=== PATIENT | female | born 1950 | race Caucasian/White ===

== ENCOUNTER 2024-08-18 10:16 | Emergency (ER) | payer MEDICARE, BC, SELFPAY ==
--- NOTE | ~2024-08-18 | CT_ITS ---
CT lumbar spine wo con Ordering provider: Jj Blanc MD History: 74 years Female with . Lower back pain, nontraumatic . Comparison: None. Technique: CT lumbar spine without contrast. Automated exposure control and iterative reconstruction technique were employed. The dose-length product was 121.00 mGy-cm. FINDINGS: VERTEBRAE: Compression fracture of L2 and L4 is noted which is most likely acute. Loss of volume of a bout 50% is seen. Mild levoscoliosis. DISC SPACES: Well maintained. T12-L1: No stenosis. L1-L2: No stenosis. L2-L3: No stenosis. L3-L4: No stenosis. L4-L5: No stenosis. Mild diffuse disc bulge. L5-S1: No stenosis. Diffuse disc bulge. Prominent in the left foramen is seen in the right side. PARASPINOUS SOFT TISSUES: Mild atheromatous disease of the abdominal aorta. IMPRESSION: Compression fractures seen in L2 and L4 which are most likely acute. MRI evaluation advised. Reviewed, dictated and finalized at location [facility]. [facility] IMPRESSION: Compression fractures seen in L2 and L4 which are most likely acute. MRI evalua tion advised.
[2024-08-18 10:50] VITALS: BP 94/78; PULSE 97; RESP 18; TEMP 36.8; O2SAT 97
--- NOTE | 2024-08-18 12:07 | ED.BACK ---
HPI - Back Pain/Injury General Chief Complaint: Back Pain/Injury Stated Complaint: lower back pain Time Seen by Provider: 08/18/24 12:06 Source: patient Mode of arrival: ambulatory Limitations: no limitations History of Present Illness HPI Narrative: 74 years old white female came to the ED with lower back pain mainly at the right side started 10 days ago, denies any trauma. Patient is telling me that she had similar symptoms started April 2024 lasted for 3 weeks after lifting heavy boxes. Patient is telling me that she been taking care of her grand son over the last few weeks which could be triggered her right lower back pain. She denies any fever, chills, nausea, vomiting, or radiation of pain Patient denies bowel dysfunction, bladder dysfunction, altered sensation, focal weakness, or saddle numbness, Related Data Allergies Allergy/AdvReac Type Severity Reaction Status Date / Time No Known Allergies Allergy Verified 08/18/24 12:43 Review of Systems Review of Systems: All systems reviewed & are unremarkable except as noted in HPI and below Exam Narrative: General appearance: Well-developed, well-nourished Skin: Normal color Head: Normocephalic, nontraumatic Eyes: Clear conjunctiva ENT: Oropharynx normal, ears normal, nose normal Neck: Supple, nontender Chest and respiratory: Airway patent, no respiratory distress, no accessory muscle use Heart: Regular rate/rhythm Abdomen: Soft, nontender, no organomegaly, quiet bowel sounds Vascular: Normal peripheral pulses, normal capillary refill. Musculoskeletal: Mild diffuse tenderness right lower back, no bruises, no swelling, no rash, limited range of motion at the lumbar area Neurologic: Alert and oriented ?3, LEATH[employer]AYER is normal as tested, no gross motor deficit Course Vital Signs Vital signs: Vital Signs Temperature 36.8 C 08/18/24 10:50 Pulse Rate 97 08/18/24 10:50 Respiratory Rate 18 08/18/24 10:50 Blood Pressure 94/78 L 08/18/24 10:50 Pulse Oximetry 97 08/18/24 10:50 Temperature 36.8 C 08/18/24 10:50 Pulse Rate 97 08/18/24 10:50 Respiratory Rate 18 08/18/24 10:50 Blood Pressure 94/78 L 08/18/24 10:50 Pulse Oximetry 97 08/18/24 10:50 MDM - Back Pain/Injury MDM Narrative Medical decision making narrative: Lower back pain Vital signs are stable Physical examination showing slight tenderness at the right lower back, otherwise insignificant Differential diagnosis include muscular strain/sprain less likely bulging disc. CT lumbar spine showed L1, L4 compression fracture Dr. Chavez requested lower back brace, outpatient follow-up and there is no improvement kyphoplasty will be the other option. Is planning to leave a message at the patient phone for follow-up BACK BRACE WAS MANAGE IN THE ED PRIOR TO DISCHARGE Differential Diagnosis Differential diagnosis: Likely other (As above) Imaging Data Radiologist's impression: CT Critical Care Time Critical Care Time Critical Care Time: No Discharge Plan Discharge Clinical Impression: Compression fracture, Lower back pain Patient Disposition: Home, Self-Care Condition: Stable Instructions: Vertebral Compression Fracture (ED) Additional Instructions: Return if symptoms are worsening , call your Dr Landrum, take Tylenol as as needed for aches and pain, continue home medications. Patient Language: Israeli Prescriptions: New diclofenac sodium 75 mg tablet,delayed release (DR/EC) 75 mg PO BID PRN (Reason: pain) Qty: 14 0RF cyclobenzaprine 7.5 mg tablet 7.5 mg PO TID Qty: 20 0RF diclofenac sodium 75 mg tablet,delayed release (DR/EC) 75 mg PO BID PRN (Reason: pain) Qty: 20 0RF cyclobenzaprine 7.5 mg tablet 7.5 mg PO TID Qty: 20 0RF Follow-up/Referrals: Kuldeep Greene MD [Physician] - 09/01/24 PHYSICIAN NOT ON STAFF,NONSTAFF [Non-Staff] -
[2024-08-18] MEDS: HYDROcodone/acetaminophen (*CRX) 5-325 MG TABLET 1 TAB PO (12:50)
[2024-08-18] MEDS: IBUPROFEN 600 MG TABLET PO (12:51)
--- OUTSIDE RECORDS SUMMARY | 2024-08-18 13:34 | XMS_ITS | Continuity of Care Document ---
Author Organization Formerly [facility] [place] Address [address] [place] [address] [address] [place] [address] Phone Care Team Providers Care Transplant Nurse Practitioner Name Role Phone Steff Sow Unavailable Unavailable Procedures Procedure Date Eye Exam Established Pt Advance Directives Directive Yes / No Effective Date File Name No Information Encounters Encounter Description Practice Location Reason(s) For Visit Diagnoses Date Provider Providers Copied on Encounter [facility], [address] [place] [address] [address], [place], [place], [id number], [place] tel:[phone] [facility] No Information [address] [facility] , [address], [place], [address], [place]. tel:[phone] Family History Family Member Type Diagnosis Age At Onset No Information Payers Payer name Insurance type Covered republican ID Authoriza tion(s) No Information Social History Type Description Quantity Date Captured Comments Sex Female Smoking Status No Information Chief Complaint And Reason For Visit No Information Reason For Referral Reason For Referral No Information History Of Present Illness Encounter Date Complaint History Of Prese nt Illness No Information Functional Status Date Functional Assessmen t No Information Instructions Date Instruction Additional Infor mation No Information Assessments Type Assessment Date No Information Patient Care Teams Name Effective Dates (start - stop) Status Members No Information
--- OUTSIDE RECORDS SUMMARY | 2024-08-18 13:34 | XMS_ITS | Data Portability ---
Author Organization RISSA CHARLYIvan Magallon Address [address] [place] [address] Assessment No assessment recorded. Plan of Treatment Reminders Order Date Submit Date Provider Last Modified By Organization Details Last Modified Time Details Appointments None recorded. Lab lipid panel, serum 2023 024 [facility]NA[facility], [address], [place], [address], 4 08:27:00 basic metabolic 1998 panel, serum or plasma 2023 024 PAULIE [facility], [address], [place], [address], 4 08:27:01 CBC 2023 024 [facility]NA[facility]AN [facility], [address], [place], [address], 4 08:27:02 TSH, ultra-sensi tive, serum 2023 024 PAULIE [facility], [address], [place], [address], 4 13:12:23 CBC w/ auto diff 2023 024 [facility]NA[facility]AN [facility], [address], [address], [place], [address], 4 06:26:42 CMP, serum or plasma 2023 024 PAULIE Pena, [address], [place], [address], 4 06:26:40 urinalysis, dipstick 2023 024 PAULIE Pena, [address], [address], [place], [address], 4 06:26:41 lipid panel, serum 2023 024 PAULIE Pena, [address], [address], [place], [address], 4 06:26:40 noninvasive colorectal cancer DNA + occult blood screening, QL, stool 2023 024 [facility] (Cologuard Orders Only), [address], [address], [place], [address], 4 15:41:53 iron + total iron-bindin g capacity (TIBC), serum 2022 023 PAULIE Pena, [address], [address], [place], [address], 3 08:21:46 ferritin, serum or plasma 2022 023 PAULIE Pena, [address], [address], [place], [address], 3 08:21:47 hepatic function panel, serum 2022 023 PAULIE Pena, [address], [address], [place], [address], 3 08:21:45 CBC w/ auto diff 2022 023 PAULIE Pena, [address]22 [address], [address], [place], [address], 3 08:21:47 lipid panel, serum 2022 023 [facility]NA[facility]AN [facility], [address], [place], [address], 3 19:08:41 Referral gastroenter ologist referral - Chronic GERD 2023 024 amber Bal MD, [address] [facility] [address], [place], [address], 4 17:27:26 Procedures None recorded. Surgeries None recorded. Imaging XR, chest, 2 view 2023 024 [facility] [address] [place], [address], 4 15:42:09 XR, sternum - Deformity of the lower part of the sternum, post trauma 2022 023 [facility] ([facility]), [address] [place], [address], 3 16:43:04 Medication Orders atorvastati n 10 mg tablet 2023 024 [facility], [address] [place] [address], [address], 4 12:34:12 ferrous sulfate 325 mg (65 mg iron) tablet 2023 024 [facility], [facility] [place], [address], 4 12:34:10 levothyroxi ne 112 mcg tablet 2023 024 [facility], [address] [place] [address], [address], 4 12:34:10 omeprazole 40 mg capsule,del ayed release 2023 024 [facility], [address] [place] [address], [address], 4 13:04:21 ferrous sulfate 325 mg (65 mg iron) tablet 2023 024 PAULIE [facility], [address] [place] [address], [address], 4 12:59:47 ferrous sulfate 325 mg (65 mg iron) tablet 2022 023 oajao [facility], [address] [place] [address], [address], 3 12:47:14 omeprazole 20 mg capsule,del ayed release 2022 023 oajao [facility], [address] [place] [address], [address], 4 13:03:16 atorvastati n 10 mg tablet 2022 023 PAULIE [facility], [address] [place] [address], [address], 3 12:50:48 atorvastati n 10 mg tablet 2022 023 PAULIE [facility], [address] [place] [address], [address], 3 13:46:33 omeprazole 40 mg capsule,del ayed release 2022 023 oajao [facility], [address] [place] [address], [address], 3 12:13:57 ferrous sulfate 325 mg (65 mg iron) tablet 2022 023 PAULIE [facility], [address] [place] [address], [address], 03:32:51 Zithromax Z-Oliver 250 mg tablet 2022 023 [id number], [address], [place], [address], 12:36:28 Patient TargetsNo targets recorded. Patient Instructions Encounter Date Encounter Id Patient Instructions Last Modified By Organization Details Last Modified Time 07/24/2022 [id number] gastroesophageal reflux disease (GERD): care instructions oajao Not available 07/24/2022 13:46:30 Quitting Tobacco : Care Instructions oajao Not available 07/24/2022 13:44:50 chronic sinusiti s: care instructions oajao Not available 07/24/2022 12:53:47 eating healthy foods: care instructions oajao Not available 07/24/2022 13:37:[address] sca n report Xray sternum Azithromycin only if there is no improvement TSH today Lipids in Oct, 2022 Follow up in 6 months and PRN DEXA scan (See above) oajao Not available 07/24/2022 13:54:28 01/22/2023 [id number] Labs Follow up i n 6 months and PRN oajao Not available 01/22/2023 12:40:40 07/20/2023 [id number] gastroesophageal reflux disease (GERD): care instructions oajao Not available 07/20/2023 12:56:09 hypothyroidism: care instructions oajao Not available 07/20/2023 13:01:43 CXR Labs GI Cologuard Omeprazole 40 mg Follow up in 3 months and PRN oajao Not available 07/20/2023 13:03:08 11/14/2023 [id number] Labs Follow up in 6 months and PRN oajao Not available 11/14/2023 15:58:54 06/06/2024 [id number] A healthy lifest yle: care instructions oajao Not available 06/06/2024 12:25:13 eating healthy foods: care instructions oajao Not available 06/06/2024 12:25:53 Labs Follow up i n 6 months and PRN oajao Not available 06/06/2024 12:37:30 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 Gastroesophageal reflux disease Chronic GERD Chronic GERD Referring Physician: Abdiel Garcia, Internal Medicine, Encounter Date: 07/20/2023 Results Created Date Observation Date Name Description Value Unit Range Abnormal Flag Note LastModifiedBy Organization Detail LastModifiedTime 07/19/1907/19/2024 COLOG UARD cologuard result Cancel led - Order d not applic able Not Available [facility] (Cologuard Orders Only) [address], [place], [address], 07/19/2024 07:52:43 07/24/19 23 07/25/2022 TSH TSH 0.285 uIU/m L 0.450- 4.500 below low normal Not Available [facility] ([facility]) [address] [place], [address], 07/25/2022 08:17:06 07/25/19 23 07/26/2022 TSH TSH 0.389 uIU/m L 0.450- 4.500 below low normal Not Available [facility] ([facility]) [address] [place], [address], 07/26/2022 08:18:34 12/12/19 23 12/11/2022 LIPID PANEL cholesterol, total 159.2 mg/dL 140.0- 200.0 Not Available [facility] Department [address] [place], [address], 12/11/2022 19:08:40 12/12/19 23 12/11/2022 LIPID PANEL triglyceride s 66 mg/dL <=150 Not Available [facility] Department [address] [place], [address], 12/11/2022 19:08:40 12/12/19 23 12/11/2022 LIPID PANEL HDL cholesterol 42.8 mg/dL 40.0-1 00.0 Not Available [facility] Department [address] [place], [address], 12/11/2022 19:08:40 12/12/19 23 12/11/2022 LIPID PANEL VLDL cholesterol fernando 13.20 mg/dL 5.00-4 0.00 Not Available [facility] Department [address] [place], [address], 12/11/2022 19:08:40 12/12/19 23 12/11/2022 LIPID PANEL LDL chol calc ([facility]) 103.4 mg/dL 0.0-99 .0 above high normal Not Available [facility] Department [address] [place], [address], 12/11/2022 19:08:40 12/19/19 23 12/19/2022 TSH RFX ON ABNOR MAL TO FREE T4 TSH 2.160 uIU/m L 0.450- 4.500 Not Available [facility] ([facility]) [address] [place], [address], 12/19/2022 06:15:13 01/23/20 23 01/23/2023 IRON AND TIBC iron bind.cap.(TI BC) 234 ug/dL 250-45 0 below low normal Not Available [facility] ([facility]) [address] [place], [address], 01/23/2023 08:21:46 01/23/20 23 01/23/2023 IRON AND TIBC UIBC 138 ug/dL 118-36 9 Not Available [facility] ([facility]) [address] [place], [address], 01/23/2023 08:21:46 01/23/20 23 01/23/2023 IRON AND TIBC iron 96 ug/dL 27-139 Not Available [facility] ([facility]) [address] [place], [address], 01/23/2023 08:21:46 01/23/20 23 01/23/2023 IRON AND TIBC iron saturation 41 % 15-55 Not Available [facility] ([facility]) [address] [facility], [place], [address], 01/23/2023 08:21:46 01/23/20 23 01/23/2023 CECE TIN ferritin 319 NG/mL 15-150 above high normal Not Available [facility] ([facility]) [address] [facility], [place], [address], 01/23/2023 08:21:47 01/23/20 23 01/23/2023 CBC WITH DIFFE RENTI AL/PL ATELE T WBC 5.9 x10e3 /uL 3.4-10 .8 Not Available [facility] ([facility]) [address] [place], [address], 01/23/2023 08:21:47 01/23/20 23 01/23/2023 CBC WITH DIFFE RENTI AL/PL ATELE T RBC 4.07 x10e6 /uL 3.77-5 .28 Not Available [facility] ([facility]) [address] [place], [address], 01/23/2023 08:21:47 01/23/20 23 01/23/2023 CBC WITH DIFFE RENTI AL/PL ATELE T hemoglobin 13.9 g/dL 11.1-1 5.9 Not Available [facility] ([facility]) [address] [place], [address], 01/23/2023 08:21:47 01/23/20 23 01/23/2023 CBC WITH DIFFE RENTI AL/PL ATELE T hematocrit 39.6 % 34.0-4 6.6 Not Available [facility] ([facility]) [address] [place], [address], 01/23/2023 08:21:47 01/23/20 23 01/23/2023 CBC WITH DIFFE RENTI AL/PL ATELE T MCV 97 fL 79-97 Not Available [facility] ([facility]) [address] [place], [address], 01/23/2023 08:21:47 01/23/20 23 01/23/2023 CBC WITH DIFFE RENTI AL/PL ATELE T MCH 34.2 pg 26.6-3 3.0 above high normal Not Available [facility] ([facility]) [address] [facility], [place], [address], 01/23/2023 08:21:47 01/23/20 23 01/23/2023 CBC WITH DIFFE RENTI AL/PL ATELE T MCHC 35.1 g/dL 31.5-3 5.7 Not Available [facility] ([facility]) [address] [facility], [place], [address], 01/23/2023 08:21:47 01/23/20 23 01/23/2023 CBC WITH DIFFE RENTI AL/PL ATELE T RDW 12.3 % 11.7-1 5.4 Not Available [facility] ([facility]) [address] [facility], [place], [address], 01/23/2023 08:21:47 01/23/20 23 01/23/2023 CBC WITH DIFFE RENTI AL/PL ATELE T platelets 380 x10e3 /uL 150-45 0 Not Available [facility] ([facility]) [address] [facility], [place], [address], 01/23/2023 08:21:47 01/23/20 23 01/23/2023 CBC WITH DIFFE RENTI AL/PL ATELE T neutrophils 42 % notest ab. Not Available [facility] ([facility]) [address] [place], [address], 01/23/2023 08:21:47 01/23/20 23 01/23/2023 CBC WITH DIFFE RENTI AL/PL ATELE T lymphs 45 % notest ab. Not Available [facility] ([facility]) [address] [place], [address], 01/23/2023 08:21:47 01/23/20 23 01/23/2023 CBC WITH DIFFE RENTI AL/PL ATELE T monocytes 11 % notest ab. Not Available [facility] ([facility]) [address] [facility], [place], [address], 01/23/2023 08:21:47 01/23/20 23 01/23/2023 CBC WITH DIFFE RENTI AL/PL ATELE T eos 1 % notest ab. Not Available [facility] ([facility]) [address] [facility], [place], [address], 01/23/2023 08:21:47 01/23/20 23 01/23/2023 CBC WITH DIFFE RENTI AL/PL ATELE T basos 1 % notest ab. Not Available [facility] ([facility]) [address] [facility], [place], [address], 01/23/2023 08:21:47 01/23/20 23 01/23/2023 CBC WITH DIFFE RENTI AL/PL ATELE T neutrophils (absolute) 2.5 x10e3 /uL 1.4-7. 0 Not Available [facility] ([facility]) [address] [facility], [place], [address], 01/23/2023 08:21:47 01/23/20 23 01/23/2023 CBC WITH DIFFE RENTI AL/PL ATELE T lymphs (absolute) 2.7 x10e3 /uL 0.7-3. 1 Not Available [facility] ([facility]) [address] [place], [address], 01/23/2023 08:21:47 01/23/20 23 01/23/2023 CBC WITH DIFFE RENTI AL/PL ATELE T monocytes(ab solute) 0.6 x10e3 /uL 0.1-0. 9 Not Available [facility] ([facility]) [address] [place], [address], 01/23/2023 08:21:47 01/23/20 23 01/23/2023 CBC WITH DIFFE RENTI AL/PL ATELE T eos (absolute) 0.1 x10e3 /uL 0.0-0. 4 Not Available [facility] ([facility]) [address] [facility], [place], [address], 01/23/2023 08:21:47 01/23/20 23 01/23/2023 CBC WITH DIFFE RENTI AL/PL ATELE T baso (absolute) 0.1 x10e3 /uL 0.0-0. 2 Not Available [facility] ([facility]) [address] [facility], [place], [address], 01/23/2023 08:21:47 01/23/20 23 01/23/2023 CBC WITH DIFFE RENTI AL/PL ATELE T immature granulocytes 0 % notest ab. Not Available [facility] ([facility]) [address] [facility], [place], [address], 01/23/2023 08:21:47 01/23/20 23 01/23/2023 CBC WITH DIFFE RENTI AL/PL ATELE T immature grans (abs) 0.0 x10e3 /uL 0.0-0. 1 Not Available [facility] ([facility]) [address] [place], [address], 01/23/2023 08:21:47 01/23/20 23 01/23/2023 HEPAT IC FUNCT ION PANEL (7) protein, total 6.6 g/dL 6.0-8. 5 Not Available [facility] ([facility]) [address] [place], [address], 01/23/2023 08:21:45 01/23/20 23 01/23/2023 HEPAT IC FUNCT ION PANEL (7) albumin 4.5 g/dL 3.9-4. 9 Not Available [facility] ([facility]) [address] [facility], [place], [address], 01/23/2023 08:21:45 01/23/20 23 01/23/2023 HEPAT IC FUNCT ION PANEL (7) bilirubin, total 0.3 mg/dL 0.0-1. 2 Not Available [facility] ([facility]) [address] [facility], [place], [address], 01/23/2023 08:21:45 01/23/20 23 01/23/2023 HEPAT IC FUNCT ION PANEL (7) bilirubin, direct 0.11 mg/dL 0.00-0 .40 Not Available [facility] ([facility]) [address] [place], [address], 01/23/2023 08:21:45 01/23/20 23 01/23/2023 HEPAT IC FUNCT ION PANEL (7) alkaline phosphatase 77 IU/L 44-121 Not Available [facility] ([facility]) [address] [facility], [place], [address], 01/23/2023 08:21:45 01/23/20 23 01/23/2023 HEPAT IC FUNCT ION PANEL (7) AST (SGOT) 23 IU/L 0-40 Not Available [facility] ([facility]) [address] [facility], [place], [address], 01/23/2023 08:21:45 01/23/20 23 01/23/2023 HEPAT IC FUNCT ION PANEL (7) ALT (SGPT) 21 IU/L 0-32 Not Available [facility] ([facility]) [address] [place], [address], 01/23/2023 08:21:45 07/20/19 24 07/21/2023 LIPID PANEL cholesterol, total 165 mg/dL 100-19 9 Not Available [facility] Department [address] [place], [address], 07/21/2023 06:26:40 07/20/19 24 07/21/2023 LIPID PANEL triglyceride s 81 mg/dL 0-149 Not Available [facility] Department [address] [place] [address], [address], 07/21/2023 06:26:40 07/20/19 24 07/21/2023 LIPID PANEL HDL cholesterol 47 mg/dL 40-999 Not Available [facility] Department [address] [place] [address], [address], 07/21/2023 06:26:40 07/20/19 24 07/21/2023 LIPID PANEL VLDL cholesterol fernando 16 mg/dL 5-40 Not Available [facility] Department [address] [place] [address], [address], 07/21/2023 06:26:40 07/20/19 24 07/21/2023 LIPID PANEL LDL chol calc (nih) 113 mg/dL 0-99 above high normal Not Available [facility] Department [address] [place] [address], [address], 07/21/2023 06:26:40 07/20/19 24 07/21/2023 COMP. METAB OLIC PANEL (14) glucose 86 mg/dL 70-99 Not Available [facility] Department [address] [place] [address], [address], 07/21/2023 06:26:40 07/20/19 24 07/21/2023 COMP. METAB OLIC PANEL (14) BUN 10 mg/dL 8-27 Not Available [facility] Department [address] [place], [address], 07/21/2023 06:26:40 07/20/19 24 07/21/2023 COMP. METAB OLIC PANEL (14) creatinine 0.69 mg/dL 0.76-1 .27 below low normal Not Available [facility] Department [address] [place] [address], [address], 07/21/2023 06:26:40 07/20/19 24 07/21/2023 COMP. METAB OLIC PANEL (14) eGFR 93 >=60 Units for eGFR value s are mL/mi n/1.7 3 The eGFR Calcu latio n has not been valid ated for patie nts under the age of 18. If test resul ts are displ ayed for a patie nt under the age of 18, disre karma that value . Not Available [facility] Department [address] [place] [address], [address], 07/21/2023 06:26:40 07/20/19 24 07/21/2023 COMP. METAB OLIC PANEL (14) BUN/creatini ne ratio 14 10-28 Not Available [facility] Department [address] [place] [address], [address], 07/21/2023 06:26:40 07/20/19 24 07/21/2023 COMP. METAB OLIC PANEL (14) sodium 142 mmol/ L 134-14 4 Not Available [facility] Department [address] [place] [address], [address], 07/21/2023 06:26:40 07/20/19 24 07/21/2023 COMP. METAB OLIC PANEL (14) potassium 5.5 mmol/ L 3.5-5. 2 above high normal Not Available [facility] Department [address] [place] [address], [address], 07/21/2023 06:26:40 07/20/19 24 07/21/2023 COMP. METAB OLIC PANEL (14) chloride 104 mmol/ L 96-106 Not Available [facility] Department [address] [place] [address], [address], 07/21/2023 06:26:40 07/20/19 24 07/21/2023 COMP. METAB OLIC PANEL (14) carbon dioxide, total 26 mmol/ L 20-29 Not Available [facility] Department [address] [place] [address], [address], 07/21/2023 06:26:40 07/20/19 24 07/21/2023 COMP. METAB OLIC PANEL (14) calcium 10.1 mg/dL 8.7-10 .3 Not Available [facility] Department [address] [place], [address], 07/21/2023 06:26:40 07/20/19 24 07/21/2023 COMP. METAB OLIC PANEL (14) protein, total 7.2 g/dL 6.0-8. 5 Not Available [facility] Department [address] [place], [address], 07/21/2023 06:26:40 07/20/19 24 07/21/2023 COMP. METAB OLIC PANEL (14) albumin 4.7 g/dL 3.8-4. 8 Not Available [facility] Department [address] [place], [address], 07/21/2023 06:26:40 07/20/19 24 07/21/2023 COMP. METAB OLIC PANEL (14) globulin, total 2.5 g/dL 1.5-4. 5 Not Available [facility] Department [address] [place], [address], 07/21/2023 06:26:40 07/20/19 24 07/21/2023 COMP. METAB OLIC PANEL (14) A/G ratio 2.0 1.2-2. 2 Not Available [facility] Department [address] [place], [address], 07/21/2023 06:26:40 07/20/19 24 07/21/2023 COMP. METAB OLIC PANEL (14) bilirubin, total 0.3 mg/dL 0.0-1. 2 Not Available [facility] Department [address] [place], [address], 07/21/2023 06:26:40 07/20/19 24 07/21/2023 COMP. METAB OLIC PANEL (14) alkaline phosphatase 81 IU/L 44-121 Not Available [facility] Department [address] [place], [address], 07/21/2023 06:26:40 07/20/19 24 07/21/2023 COMP. METAB OLIC PANEL (14) AST (SGOT) 28 IU/L 0-40 Not Available [facility] Department [address] [place], [address], 07/21/2023 06:26:40 07/20/19 24 07/21/2023 COMP. METAB OLIC PANEL (14) ALT (SGPT) 27 IU/L 0-32 Not Available [facility] Department [address] [place], [address], 07/21/2023 06:26:40 07/20/19 24 07/20/2023 URINA LYSIS , ROUTI NE specific gravity SEE BELOW: 1.005- 1.030 abnormal <=1.0 05 Not Available [facility] Department [address] [place], [address], 07/21/2023 06:26:41 07/20/19 24 07/20/2023 URINA LYSIS , ROUTI NE pH 6.5 5.0-7. 0 Not Available [facility] Department [address] [place], [address], 07/21/2023 06:26:41 07/20/19 24 07/20/2023 URINA LYSIS , ROUTI NE urine-color YELLOW yellow Not Available [facility] Department [address] [place], [address], 07/21/2023 06:26:41 07/20/19 24 07/20/2023 URINA LYSIS , ROUTI NE appearance CLEAR Not Available [facility] Department [address] [place], [address], 07/21/2023 06:26:41 07/20/19 24 07/20/2023 URINA LYSIS , ROUTI NE WBC esterase COMMEN T NEGAT FREDDIE Not Available [facility] Department [address] [place], [address], 07/21/2023 06:26:41 07/20/19 24 07/20/2023 URINA LYSIS , ROUTI NE protein COMMEN T NEGAT FREDDIE Not Available [facility] Department [address] [place], [address], 07/21/2023 06:26:41 07/20/19 24 07/20/2023 URINA LYSIS , ROUTI NE glucose COMMEN T NEGAT FREDDIE Not Available [facility] Department [address] [place], [address], 07/21/2023 06:26:41 07/20/19 24 07/20/2023 URINA LYSIS , ROUTI NE ketones COMMEN T NEGAT FREDDIE Not Available [facility] Department [address] [place], [address], 07/21/2023 06:26:41 07/20/19 24 07/20/2023 URINA LYSIS , ROUTI NE occult blood COMMEN T NEGAT FREDDIE Not Available [facility] Department [address] [facility], [place], [address], 07/21/2023 06:26:41 07/20/19 24 07/20/2023 URINA LYSIS , ROUTI NE bilirubin COMMEN T NEGAT FREDDIE Not Available [facility] Department [address] [place], [address], 07/21/2023 06:26:41 07/20/19 24 07/20/2023 URINA LYSIS , ROUTI NE urobilinogen ,semi-qn 0.2 eu/dL 0.2-1. 0 Not Available [facility] Department [address] [place], [address], 07/21/2023 06:26:41 07/20/19 24 07/20/2023 URINA LYSIS , ROUTI NE nitrite, urine COMMEN T negati ve NEGAT FREDDIE Not Available [facility] Department [address] [place], [address], 07/21/2023 06:26:41 07/20/19 24 07/20/2023 CBC WITH DIFFE RENTI AL/PL ATELE T WBC 6.2 x10e3 /uL 3.4-10 .8 Not Available [facility] Department [address] [place], [address], 07/21/2023 06:26:42 07/20/19 24 07/20/2023 CBC WITH DIFFE RENTI AL/PL ATELE T RBC 4.26 x10e6 /uL 3.77-5 .28 Not Available [facility] Department [address] [place], [address], 07/21/2023 06:26:42 07/20/19 24 07/20/2023 CBC WITH DIFFE RENTI AL/PL ATELE T hemoglobin 13.9 g/dL 11.1-1 5.9 Not Available [facility] Department [address] [place], [address], 07/21/2023 06:26:42 07/20/19 24 07/20/2023 CBC WITH DIFFE RENTI AL/PL ATELE T hematocrit 43.0 % 34.0-4 6.6 Not Available [facility] Department [address] [place], [address], 07/21/2023 06:26:42 07/20/19 24 07/20/2023 CBC WITH DIFFE RENTI AL/PL ATELE T MCV 101 fL 79-97 above high normal Not Available [facility] Department [address] [place], [address], 07/21/2023 06:26:42 07/20/19 24 07/20/2023 CBC WITH DIFFE RENTI AL/PL ATELE T MCH 32.6 pg 26.6-3 3.0 Not Available [facility] Department [address] [place], [address], 07/21/2023 06:26:42 07/20/19 24 07/20/2023 CBC WITH DIFFE RENTI AL/PL ATELE T MCHC 32.3 g/dL 31.5-3 5.7 Not Available [facility] Department [address] [place], [address], 07/21/2023 06:26:42 07/20/19 24 07/20/2023 CBC WITH DIFFE RENTI AL/PL ATELE T RDW 13.4 % 11.5-1 4.5 Not Available [facility] Department [address] [place], [address], 07/21/2023 06:26:42 07/20/19 24 07/20/2023 CBC WITH DIFFE RENTI AL/PL ATELE T platelets 450 x10e3 /uL 150-45 0 Not Available [facility] Department [address] [place], [address], 07/21/2023 06:26:42 07/20/19 24 07/20/2023 CBC WITH DIFFE RENTI AL/PL ATELE T neutrophils 40 % notest b. Not Available [facility] Department [address] [place], [address], 07/21/2023 06:26:42 07/20/19 24 07/20/2023 CBC WITH DIFFE RENTI AL/PL ATELE T lymphs 47 % notest b. Not Available [facility] Department [address] [place], [address], 07/21/2023 06:26:42 07/20/19 24 07/20/2023 CBC WITH DIFFE RENTI AL/PL ATELE T monocytes 11 % notest b. Not Available [facility] Department [address] [place], [address], 07/21/2023 06:26:42 07/20/19 24 07/20/2023 CBC WITH DIFFE RENTI AL/PL ATELE T eos 1 % notest b. Not Available [facility] Department [address] [place], [address], 07/21/2023 06:26:42 07/20/19 24 07/20/2023 CBC WITH DIFFE RENTI AL/PL ATELE T basos 1 % notest b. Not Available [facility] Department [address] [place], [address], 07/21/2023 06:26:42 07/20/19 24 07/20/2023 CBC WITH DIFFE RENTI AL/PL ATELE T neutrophils (absolute) 2.5 x10e3 /uL 1.4-7. 0 Not Available [facility] Department [address] [place], [address], 07/21/2023 06:26:42 07/20/19 24 07/20/2023 CBC WITH DIFFE RENTI AL/PL ATELE T lymphs (absolute) 2.9 x10e3 /uL 0.7-3. 1 Not Available [facility] Department [address] [place], [address], 07/21/2023 06:26:42 07/20/19 24 07/20/2023 CBC WITH DIFFE RENTI AL/PL ATELE T monocytes(ab solute) 0.7 x10e3 /uL 0.1-0. 9 Not Available [facility] Department [address] [place], [address], 07/21/2023 06:26:42 07/20/19 24 07/20/2023 CBC WITH DIFFE RENTI AL/PL ATELE T eos (absolute) 0.1 x10e3 /uL 0.0-0. 4 Not Available [facility] Department [address] [place], [address], 07/21/2023 06:26:42 07/20/19 24 07/20/2023 CBC WITH DIFFE RENTI AL/PL ATELE T baso (absolute) 0.1 x10e3 /uL 0.0-0. 2 Not Available [facility] Department [address] [place], [address], 07/21/2023 06:26:42 07/20/19 24 07/20/2023 CBC WITH DIFFE RENTI AL/PL ATELE T immature granulocytes 0.2 % notest b. Not Available [facility] Department [address] [place], [address], 07/21/2023 06:26:42 07/20/19 24 07/20/2023 CBC WITH DIFFE RENTI AL/PL ATELE T immature grans (abs) 0.0 x10e3 /uL 0.0-0. 1 Not Available [facility] Department [address] [place], [address], 07/21/2023 06:26:42 07/20/19 24 07/20/2023 CBC WITH DIFFE RENTI AL/PL ATELE T NRBC 0 % 0-0 Not Available [facility] Department [address] [place], [address], 07/21/2023 06:26:42 08/01/19 24 08/02/2023 POTAS SIUM potassium 4.3 mmol/ L 3.5-5. 2 Not Available [facility] ([facility]) [address] [facility], [place], [address], 08/02/2023 06:18:57 08/01/19 24 08/02/2023 VITAM IN B12 WITH REFLE X vitamin B12 >2000 pg/mL 232-12 45 above high normal Not Available [facility] ([facility]) [address] [facility], [place], [address], 08/08/2023 17:09:42 08/01/19 24 08/08/2023 METHY LMALO CHAVA ACID, SERUM methylmaloni c acid, serum 107 nmol/ L 0-378 Not Available [facility] ([facility]) [address] [place], [address], 08/08/2023 17:09:43 11/14/19 24 11/15/2023 TSH RFX ON ABNOR MAL TO FREE T4 TSH 2.610 uIU/m L 0.450- 4.500 Not Available [facility] ([facility]) [address] [place], [address], 11/15/2023 13:12:23 06/06/20 24 06/07/2024 LIPID PANEL cholesterol, total 129 mg/dL 100-19 9 Not Available [facility] ([facility]) [address] [place], [address], 06/07/2024 08:27:00 06/06/20 24 06/07/2024 LIPID PANEL triglyceride s 47 mg/dL 0-149 Not Available [facility] ([facility]) [address] [place], [address], 06/07/2024 08:27:00 06/06/20 24 06/07/2024 LIPID PANEL HDL cholesterol 39 mg/dL >39 below low normal Not Available [facility] ([facility])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 Hearing:no loss of hearing Vision:no vision problems Activities of Daily Living:able to bathe with limited or no assistance; able to contol urination and bowels; able to dress with limited or no assistance; able to feed self with limited or no assistance; able to get out of chair or bed with limited or no assistance; able to groom with limited or no assistance; able to toilet with limited or no assistance Instrumental Activities of Daily Living:able to do house work with limited or no assistance; able to grocery shop with limited or no assistance; able to manage medications with limited or no assistance; able to manage money with limited or no assistance; able to prepare meals with limited or no assistance; able to use the phone with limited or no assistance Falls Risk Assessment:no frequent falls while walking; no fall in the past year; no fall since last visit; no dizziness/vertigo Home Safety:no unsafe kari hazzards; no unsafe stairs; no unsafe gas appliances; working smoke/CO detectors; wears protective head gear for biking/high velocity; use of seatbelts; no vision or hearing loss while driving; no fire arms; has hand bars in the bathroom/shower; good lighting in the home I need a refill on my Synthroid I am not having anything done I don't want anything that could be cancer, I would rather not know Ms Reese felt better on the higher dose of Omeprazole and she is not interested in having any invasive or non invasive procedure or cancer screening test done. She understands clearly what the goal is but she is not interested. Fully compliant with her Synthroid 112 mcg, she feels well and she is enjoying her gardening. Abdiel Garcia MD Attn: [address] , [place], [address], [facility] 11/14/2023 16:13:55 06/06/2024 text/html Medicare Annual Wellness VisitReported bypatient.Diet and Nutrition:healthy diet; discussed vitamin and supplement use Fracture Risk:no history of fractures; no recent explained fracture; no sudden unexplained fractures; no previous musculoskeletal injuries Physical Activity:exercises on a regular basis; recent increase in physical activity; good physical condition Depression Risk:never feels sad, empty, or tearful; no loss of interest in activities; no significant changes in weight; no sleep disturbances or insomnia; no agitation; no loss of energy; no feelings of worthlessness or guilt; no thoughts of suicide; no history of depression; no history of mood disorders Orientation:no disorientation to time; no disorientation to date; no disorientation to place Concentration and Memory:no decreased concentrating ability; no memory lapses or loss; does not forget words Speech/Motor difficulties:no speech difficulties; no difficulty expressing formulated concepts; no difficulty with fine manipulative tasks; no difficulty writing/copying; no slowed reaction time; does not knock things over when trying to pick them up Hearing:no loss of hearing Vision:worse near Activities of Daily Living:able to bathe with limited or no assistance; able to contol urination and bowels; able to dress with limited or no assistance; able to feed self with limited or no assistance; able to get out of chair or bed with limited or no assistance; able to groom with limited or no assistance; able to toilet with limited or no assistance Instrumental Activities of Daily Living:able to do house work with limited or no assistance; able to grocery shop with limited or no assistance; able to manage medications with limited or no assistance; able to manage money with limited or no assistance; able to prepare meals with limited or no assistance; able to use the phone with limited or no assistance Falls Risk Assessment:no frequent falls while walking; no fall in the past year; no fall since last visit; no dizziness/vertigo Home Safety:no unsafe kari hazzards; no unsafe stairs; no unsafe gas appliances; working smoke/CO detectors; wears protective head gear for biking/high velocity; use of seatbelts; no vision or hearing loss while driving; has hand bars in the bathroom/shower; good lighting in the home I need refills and it has been a while 50% better than I did when i went there She was seen at yesterday with a URI, she is feeling better. Abdiel Garcia MD Attn: [address] [place], [address], [facility] 06/06/2024 13:14:10 OBGyn Episode No OBEpisode recorded.
--- NOTE | 2024-08-18 14:30 | PC.NURSE ---
back brace applied at bedside by racking technician from outside company
== END 2024-08-18 14:54 | disposition home or self-care (01) ==
PROVIDERS: Emergency Provider Emergency Medicine
DX: M48.56XA Collapsed vertebra, not elsewhere classified, lumbar region, initial encounter for fracture (principal)
CPT/HCPCS: 72131; 99284; A9270

== ENCOUNTER 2024-09-02 10:44 | Outpatient (CLI) | payer MEDICARE, BC, SELFPAY ==
--- NOTE | ~2024-09-02 | XR_ITS ---
3 VIEWS LUMBAR SPINE Ordering provider: Leslie Gorman APRN History: . S32.000A - Wedge compression fracture of unspecified lumb... . Comparison: None. FINDINGS: VERTEBRAL BODIES: Old Compression fracture of T11 which is most likely chronic. Compression fracture of L2 and L4 which is most likely acute disease noted.Levoscoliosis. DISK SPACES: Narrowing of the disc L1-L2. SOFT TISSUES: Normal. IMPRESSION: Chronic compression of T11. Highly suggestive acute compression fracture of L2 and L4. MRI Evaluation is advised Reviewed, dictated and finalized at location A. IMPRESSION: Chronic compression of T11. Highly suggestive acute compression fracture of L2 and L4. MRI Evaluation is ad vised
--- OUTSIDE RECORDS SUMMARY | 2024-09-02 12:16 | XMS_ITS | Data Portability ---
Author Organization RISSA CHARLYIvan Magallon Address [address] [place] [address] Assessment No assessment recorded. Plan of Treatment Reminders Order Date Submit Date Provider Last Modified By Organization Details Last Modified Time Details Appointments None recorded. Lab lipid panel, serum 2023 024 [facility], [address], [place], [address], 4 08:27:00 basic metabolic 1998 panel, serum or plasma 2023 024 PAULIE [facility], [address], [place], [address], 4 08:27:01 CBC 2023 024 [facility], [address], [place], [address], 4 08:27:02 TSH, ultra-sensi tive, serum 2023 024 PAUL[facility], [address], [place], [address], 4 13:12:23 CBC w/ auto diff 2023 024 [facility], [address], [place], [address], 4 06:26:42 CMP, serum or plasma 2023 024 PAULIE Pena, [address], [place], [address], 4 06:26:40 urinalysis, dipstick 2023 024 PAULIE Pena, [address], [place], [address], 4 06:26:41 lipid panel, serum 2023 024 PAULIE Pena, [address], [address], [place], [address], 4 06:26:40 noninvasive colorectal cancer DNA + occult blood screening, QL, stool 2023 024 [facility] (Cologuard Orders Only), [address], [address], [place], [address], 4 15:41:53 iron + total iron-bindin g capacity (TIBC), serum 2022 023 PAULIE Pena, [address], [place], [address], 3 08:21:46 ferritin, serum or plasma 2022 023 PAULIE Pena, [address], [place], [address], 3 08:21:47 hepatic function panel, serum 2022 023 PAULIE Pena, [address], [place], [address], 3 08:21:45 CBC w/ auto diff 2022 023 PAULIE Pena, [address], [address], [place], [address], 3 08:21:47 lipid panel, serum 2022 023 [facility], [address], [place], [address], 3 19:08:41 Referral gastroenter ologist referral - Chronic GERD 2023 024 amber Bal MD, [address] [facility] [address], [place], [address], 4 17:27:26 Procedures None recorded. Surgeries None recorded. Imaging XR, chest, 2 view 2023 024 [facility] (One Call Scheduling), [address] [place], [address], 4 15:42:09 XR, sternum - Deformity of the lower part of the sternum, post trauma 2022 023 [facility] (One Call Scheduling), [address] [place], [address], 3 16:43:04 Medication Orders atorvastati n 10 mg tablet 2023 024 [facility], [address] [place] [address], [address], 4 12:34:12 ferrous sulfate 325 mg (65 mg iron) tablet 2023 024 [facility], [facility] [place], [address], 4 12:34:10 levothyroxi ne 112 mcg tablet 2023 024 [facility], [address] [place] [address], [address], 4 12:34:10 omeprazole 40 mg capsule,del ayed release 2023 024 [facility], [address] [place] [address], [address], 4 13:04:21 ferrous sulfate 325 mg (65 mg iron) tablet 2023 024 PAULIE [facility], [address] [place] [address], [address], 4 12:59:47 ferrous sulfate 325 mg (65 mg iron) tablet 2022 023 oajao [facility], [address] [place] [address], [address], 3 12:47:14 omeprazole 20 mg capsule,del ayed release 2022 023 oajao [facility], [address] [place] [address], [address], 4 13:03:16 atorvastati n 10 mg tablet 2022 023 PAULIE [facility], [address] [place] [address], [address], 3 12:50:48 atorvastati n 10 mg tablet 2022 023 PAULIE [facility], [address] [place] [address], [address], 3 13:46:33 omeprazole 40 mg capsule,del ayed release 2022 023 oajao [facility], [address] [place] [address], [address], 3 12:13:57 ferrous sulfate 325 mg (65 mg iron) tablet 2022 023 PAULIE [facility], [address] [place] [address], [address], 03:32:51 Zithromax Z-Oliver 250 mg tablet 2022 023 oachuyo [id number], [address], [place], [address], 12:36:28 Patient TargetsNo targets recorded. Patient Instructions Encounter Date Encounter Id Patient Instructions Last Modified By Organization Details Last Modified Time 07/24/2022 [id number] gastroesophageal reflux disease (GERD): care instructions oajao [...] above) oajao Not available 07/24/2022 13:54:28 01/22/2023 [id number] Labs Follow up i n 6 months and PRN oajao Not available 01/22/2023 12:40:40 07/20/2023 [id number] gastroesophageal reflux disease (GERD): care instructions oajao Not available 07/20/2023 12:56:09 hypothyroidism: care instructions oajao Not available 07/20/2023 13:01:43 CXR Labs GI Cologuard Omeprazole 40 mg Follow up in 3 months and PRN oajao Not available 07/20/2023 13:03:08 11/14/2023 [id number] Labs Follow up in 6 months and PRN oajao Not available 11/14/2023 15:58:54 06/06/2024 [id number] A healthy lifest yle: care instructions oajao Not available 06/06/2024 12:25:13 eating healthy foods: care instructions oajao Not available 06/06/2024 12:25:53 Labs Follow up i n 6 months and PRN oajao Not available 06/06/2024 12:37:30 Reason for Referral [employer] 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 Gastroesophageal reflux disease Chronic GERD Chronic GERD Referring Physician: Abdiel Garcia, Internal Medicine, Encounter Date: 07/20/2023 Results Created Date Observation Date Name Description Value Unit Range Abnormal Flag Note LastModifiedBy Organization Detail LastModifiedTime 07/19/1907/19/2024 COLOG UARD cologuard result Cancel led - Order d not applic able Not Available [facility] (Cologuard Orders Only) [address], [place], [address], 07/19/2024 07:52:43 07/24/19 23 07/25/2022 TSH TSH 0.285 uIU/m L 0.450- 4.500 below low normal Not Available [facility] ([facility]) [address] [place], [address], 07/25/2022 08:17:06 07/25/19 23 07/26/2022 TSH TSH 0.389 uIU/m L 0.450- 4.500 below low normal Not Available [facility] ([facility]) [address] [place], [address], 07/26/2022 08:18:34 12/12/19 23 12/11/2022 LIPID PANEL cholesterol, total 159.2 mg/dL 140.0- 200.0 Not Available [facility] Department [address] [place], [address], 12/11/2022 19:08:40 12/12/19 23 12/11/2022 LIPID PANEL triglyceride s 66 mg/dL <=150 Not Available [facility] Department [address] [place], [address], 12/11/2022 19:08:40 12/12/19 23 12/11/2022 LIPID PANEL HDL cholesterol 42.8 mg/dL 40.0-1 00.0 Not Available [facility] Department [address] [place], [address], 12/11/2022 19:08:40 12/12/19 23 12/11/2022 LIPID PANEL VLDL cholesterol fernando 13.20 mg/dL 5.00-4 0.00 Not Available [facility] Department [address] [place], [address], 12/11/2022 19:08:40 12/12/19 23 12/11/2022 LIPID PANEL LDL chol calc ([facility]) 103.4 mg/dL 0.0-99 .0 above high normal Not Available [facility] Department [address] [place], [address], 12/11/2022 19:08:40 12/19/19 23 12/19/2022 TSH RFX ON ABNOR MAL TO FREE T4 TSH 2.160 uIU/m L 0.450- 4.500 Not Available [facility] ([facility]) [address] [place], [address], 12/19/2022 06:15:13 01/23/20 23 01/23/2023 IRON AND TIBC iron bind.cap.(TI BC) 234 ug/dL 250-45 0 below low normal Not Available [facility] ([facility]) [address] [place], [address], 01/23/2023 08:21:46 01/23/20 23 01/23/2023 IRON AND TIBC UIBC 138 ug/dL 118-36 9 Not Available [facility] ([facility]) [address] [place], [address], 01/23/2023 08:21:46 01/23/20 23 01/23/2023 IRON AND TIBC iron 96 ug/dL 27-139 Not Available [facility] ([facility]) [address] [place], [address], 01/23/2023 08:21:46 01/23/20 23 01/23/2023 IRON AND TIBC iron saturation 41 % 15-55 Not Available [facility] ([facility]) [address] [facility], [place], [address], 01/23/2023 08:21:46 01/23/20 23 01/23/2023 CECE TIN ferritin 319 NG/mL 15-150 above high normal Not Available [facility] ([facility]) [address] [facility], [place], [address], 01/23/2023 08:21:47 01/23/20 23 01/23/2023 CBC WITH DIFFE RENTI AL/PL ATELE T WBC 5.9 x10e3 /uL 3.4-10 .8 Not Available [facility] ([facility]) [address] [place], [address], 01/23/2023 08:21:47 01/23/20 23 01/23/2023 CBC WITH DIFFE RENTI AL/PL ATELE T RBC 4.07 x10e6 /uL 3.77-5 .28 Not Available [facility] ([facility]) [address] [place], [address], 01/23/2023 08:21:47 01/23/20 23 01/23/2023 CBC WITH DIFFE RENTI AL/PL ATELE T hemoglobin 13.9 g/dL 11.1-1 5.9 Not Available [facility] ([facility]) [address] [place], [address], 01/23/2023 08:21:47 01/23/20 23 01/23/2023 CBC WITH DIFFE RENTI AL/PL ATELE T hematocrit 39.6 % 34.0-4 6.6 Not Available [facility] ([facility]) [address] [place], [address], 01/23/2023 08:21:47 01/23/20 23 01/23/2023 CBC WITH DIFFE RENTI AL/PL ATELE T MCV 97 fL 79-97 Not Available [facility] ([facility]) [address] [place], [address], 01/23/2023 08:21:47 01/23/20 23 01/23/2023 CBC WITH DIFFE RENTI AL/PL ATELE T MCH 34.2 pg 26.6-3 3.0 above high normal Not Available [facility] ([facility]) [address] [facility], [place], [address], 01/23/2023 08:21:47 01/23/20 23 01/23/2023 CBC WITH DIFFE RENTI AL/PL ATELE T MCHC 35.1 g/dL 31.5-3 5.7 Not Available [facility] ([facility]) [address] [facility], [place], [address], 01/23/2023 08:21:47 01/23/20 23 01/23/2023 CBC WITH DIFFE RENTI AL/PL ATELE T RDW 12.3 % 11.7-1 5.4 Not Available [facility] ([facility]) [address] [facility], [place], [address], 01/23/2023 08:21:47 01/23/20 23 01/23/2023 CBC WITH DIFFE RENTI AL/PL ATELE T platelets 380 x10e3 /uL 150-45 0 Not Available [facility] ([facility]) [address] [facility], [place], [address], 01/23/2023 08:21:47 01/23/20 23 01/23/2023 CBC WITH DIFFE RENTI AL/PL ATELE T neutrophils 42 % notest ab. Not Available [facility] ([facility]) [address] [place], [address], 01/23/2023 08:21:47 01/23/20 23 01/23/2023 CBC WITH DIFFE RENTI AL/PL ATELE T lymphs 45 % notest ab. Not Available [facility] ([facility]) [address] [place], [address], 01/23/2023 08:21:47 01/23/20 23 01/23/2023 CBC WITH DIFFE RENTI AL/PL ATELE T monocytes 11 % notest ab. Not Available [facility] ([facility]) [address] [facility], [place], [address], 01/23/2023 08:21:47 01/23/20 23 01/23/2023 CBC WITH DIFFE RENTI AL/PL ATELE T eos 1 % notest ab. Not Available [facility] ([facility]) [address] [facility], [place], [address], 01/23/2023 08:21:47 01/23/20 23 01/23/2023 CBC WITH DIFFE RENTI AL/PL ATELE T basos 1 % notest ab. Not Available [facility] ([facility]) [address] [facility], [place], [address], 01/23/2023 08:21:47 01/23/20 23 01/23/2023 CBC WITH DIFFE RENTI AL/PL ATELE T neutrophils (absolute) 2.5 x10e3 /uL 1.4-7. 0 Not Available [facility] ([facility]) [address] [facility], [place], [address], 01/23/2023 08:21:47 01/23/20 23 01/23/2023 CBC WITH DIFFE RENTI AL/PL ATELE T lymphs (absolute) 2.7 x10e3 /uL 0.7-3. 1 Not Available [facility] ([facility]) [address] [place], [address], 01/23/2023 08:21:47 01/23/20 23 01/23/2023 CBC WITH DIFFE RENTI AL/PL ATELE T monocytes(ab solute) 0.6 x10e3 /uL 0.1-0. 9 Not Available [facility] ([facility]) [address] [place], [address], 01/23/2023 08:21:47 01/23/20 23 01/23/2023 CBC WITH DIFFE RENTI AL/PL ATELE T eos (absolute) 0.1 x10e3 /uL 0.0-0. 4 Not Available [facility] ([facility]) [address] [facility], [place], [address], 01/23/2023 08:21:47 01/23/20 23 01/23/2023 CBC WITH DIFFE RENTI AL/PL ATELE T baso (absolute) 0.1 x10e3 /uL 0.0-0. 2 Not Available [facility] ([facility]) [address] [facility], [place], [address], 01/23/2023 08:21:47 01/23/20 23 01/23/2023 CBC WITH DIFFE RENTI AL/PL ATELE T immature granulocytes 0 % notest ab. Not Available [facility] ([facility]) [address] [facility], [place], [address], 01/23/2023 08:21:47 01/23/20 23 01/23/2023 CBC WITH DIFFE RENTI AL/PL ATELE T immature grans (abs) 0.0 x10e3 /uL 0.0-0. 1 Not Available [facility] ([facility]) [address] [place], [address], 01/23/2023 08:21:47 01/23/20 23 01/23/2023 HEPAT IC FUNCT ION PANEL (7) protein, total 6.6 g/dL 6.0-8. 5 Not Available [facility] ([facility]) [address] [place], [address], 01/23/2023 08:21:45 01/23/20 23 01/23/2023 HEPAT IC FUNCT ION PANEL (7) albumin 4.5 g/dL 3.9-4. 9 Not Available [facility] ([facility]) [address] [facility], [place], [address], 01/23/2023 08:21:45 01/23/20 23 01/23/2023 HEPAT IC FUNCT ION PANEL (7) bilirubin, total 0.3 mg/dL 0.0-1. 2 Not Available [facility] ([facility]) [address] [facility], [place], [address], 01/23/2023 08:21:45 01/23/20 23 01/23/2023 HEPAT IC FUNCT ION PANEL (7) bilirubin, direct 0.11 mg/dL 0.00-0 .40 Not Available [facility] ([facility]) [address] [place], [address], 01/23/2023 08:21:45 01/23/20 23 01/23/2023 HEPAT IC FUNCT ION PANEL (7) alkaline phosphatase 77 IU/L 44-121 Not Available [facility] ([facility]) [address] [facility], [place], [address], 01/23/2023 08:21:45 01/23/20 23 01/23/2023 HEPAT IC FUNCT ION PANEL (7) AST (SGOT) 23 IU/L 0-40 Not Available [facility] ([facility]) [address] [facility], [place], [address], 01/23/2023 08:21:45 01/23/20 23 01/23/2023 HEPAT IC FUNCT ION PANEL (7) ALT (SGPT) 21 IU/L 0-32 Not Available [facility] ([facility]) [address] [place], [address], 01/23/2023 08:21:45 07/20/19 24 07/21/2023 LIPID PANEL cholesterol, total 165 mg/dL 100-19 9 Not Available [facility] Department [address] [place], [address], 07/21/2023 06:26:40 07/20/19 24 07/21/2023 LIPID PANEL triglyceride s 81 mg/dL 0-149 Not Available [facility] Department [address] [place] [address], [address], 07/21/2023 06:26:40 07/20/19 24 07/21/2023 LIPID PANEL HDL cholesterol 47 mg/dL 40-999 Not Available [facility] Department [address] [place] [address], [address], 07/21/2023 06:26:40 07/20/19 24 07/21/2023 LIPID PANEL VLDL cholesterol fernando 16 mg/dL 5-40 Not Available [facility] Department [address] [place] [address], [address], 07/21/2023 06:26:40 07/20/19 24 07/21/2023 LIPID PANEL LDL chol calc (nih) 113 mg/dL 0-99 above high normal Not Available [facility] Department [address] [place] [address], [address], 07/21/2023 06:26:40 07/20/19 24 07/21/2023 COMP. METAB OLIC PANEL (14) glucose 86 mg/dL 70-99 Not Available [facility] Department [address] [place] [address], [address], 07/21/2023 06:26:40 07/20/19 24 07/21/2023 COMP. METAB OLIC PANEL (14) BUN 10 mg/dL 8-27 Not Available [facility] Department [address] [place], [address], 07/21/2023 06:26:40 07/20/19 24 07/21/2023 COMP. METAB OLIC PANEL (14) creatinine 0.69 mg/dL 0.76-1 .27 below low normal Not Available [facility] Department [address] [place] [address], [address], 07/21/2023 06:26:40 07/20/19 24 07/21/2023 COMP. METAB OLIC PANEL (14) eGFR 93 >=60 Units for eGFR value s are mL/mi n/1.7 3 The eGFR Calcu latio n has not been valid ated for patie nts under the age of 18. If test resul ts are displ ayed for a patie nt under the age of 18, disre karma that value . Not Available [facility] Department [address] [place] [address], [address], 07/21/2023 06:26:40 07/20/19 24 07/21/2023 COMP. METAB OLIC PANEL (14) BUN/creatini ne ratio 14 10-28 Not Available [facility] Department [address] [place] [address], [address], 07/21/2023 06:26:40 07/20/19 24 07/21/2023 COMP. METAB OLIC PANEL (14) sodium 142 mmol/ L 134-14 4 Not Available [facility] Department [address] [place] [address], [address], 07/21/2023 06:26:40 07/20/19 24 07/21/2023 COMP. METAB OLIC PANEL (14) potassium 5.5 mmol/ L 3.5-5. 2 above high normal Not Available [facility] Department [address] [place] [address], [address], 07/21/2023 06:26:40 07/20/19 24 07/21/2023 COMP. METAB OLIC PANEL (14) chloride 104 mmol/ L 96-106 Not Available [facility] Department [address] [place] [address], [address], 07/21/2023 06:26:40 07/20/19 24 07/21/2023 COMP. METAB OLIC PANEL (14) carbon dioxide, total 26 mmol/ L 20-29 Not Available [facility] Department [address] [place] [address], [address], 07/21/2023 06:26:40 07/20/19 24 07/21/2023 COMP. METAB OLIC PANEL (14) calcium 10.1 mg/dL 8.7-10 .3 Not Available [facility] Department [address] [place], [address], 07/21/2023 06:26:40 07/20/19 24 07/21/2023 COMP. METAB OLIC PANEL (14) protein, total 7.2 g/dL 6.0-8. 5 Not Available [facility] Department [address] [place], [address], 07/21/2023 06:26:40 07/20/19 24 07/21/2023 COMP. METAB OLIC PANEL (14) albumin 4.7 g/dL 3.8-4. 8 Not Available [facility] Department [address] [place], [address], 07/21/2023 06:26:40 07/20/19 24 07/21/2023 COMP. METAB OLIC PANEL (14) globulin, total 2.5 g/dL 1.5-4. 5 Not Available [facility] Department [address] [place], [address], 07/21/2023 06:26:40 07/20/19 24 07/21/2023 COMP. METAB OLIC PANEL (14) A/G ratio 2.0 1.2-2. 2 Not Available [facility] Department [address] [place], [address], 07/21/2023 06:26:40 07/20/19 24 07/21/2023 COMP. METAB OLIC PANEL (14) bilirubin, total 0.3 mg/dL 0.0-1. 2 Not Available [facility] Department [address] [place], [address], 07/21/2023 06:26:40 07/20/19 24 07/21/2023 COMP. METAB OLIC PANEL (14) alkaline phosphatase 81 IU/L 44-121 Not Available [facility] Department [address] [place], [address], 07/21/2023 06:26:40 07/20/19 24 07/21/2023 COMP. METAB OLIC PANEL (14) AST (SGOT) 28 IU/L 0-40 Not Available [facility] Department [address] [place], [address], 07/21/2023 06:26:40 07/20/19 24 07/21/2023 COMP. METAB OLIC PANEL (14) ALT (SGPT) 27 IU/L 0-32 Not Available [facility] Department [address] [place], [address], 07/21/2023 06:26:40 07/20/19 24 07/20/2023 URINA LYSIS , ROUTI NE specific gravity SEE BELOW: 1.005- 1.030 abnormal <=1.0 05 Not Available [facility] Department [address] [place], [address], 07/21/2023 06:26:41 07/20/19 24 07/20/2023 URINA LYSIS , ROUTI NE pH 6.5 5.0-7. 0 Not Available [facility] Department [address] [place], [address], 07/21/2023 06:26:41 07/20/19 24 07/20/2023 URINA LYSIS , ROUTI NE urine-color YELLOW yellow Not Available [facility] Department [address] [place], [address], 07/21/2023 06:26:41 07/20/19 24 07/20/2023 URINA LYSIS , ROUTI NE appearance CLEAR Not Available [facility] Department [address] [place], [address], 07/21/2023 06:26:41 07/20/19 24 07/20/2023 URINA LYSIS , ROUTI NE WBC esterase COMMEN T NEGAT FREDDIE Not Available [facility] Department [address] [place], [address], 07/21/2023 06:26:41 07/20/19 24 07/20/2023 URINA LYSIS , ROUTI NE protein COMMEN T NEGAT FREDDIE Not Available [facility] Department [address] [place], [address], 07/21/2023 06:26:41 07/20/19 24 07/20/2023 URINA LYSIS , ROUTI NE glucose COMMEN T NEGAT FREDDIE Not Available [facility] Department [address] [place], [address], 07/21/2023 06:26:41 07/20/19 24 07/20/2023 URINA LYSIS , ROUTI NE ketones COMMEN T NEGAT FREDDIE Not Available [facility] Department [address] [place], [address], 07/21/2023 06:26:41 07/20/19 24 07/20/2023 URINA LYSIS , ROUTI NE occult blood COMMEN T NEGAT FREDDIE Not Available [facility] Department [address] [facility], [place], [address], 07/21/2023 06:26:41 07/20/19 24 07/20/2023 URINA LYSIS , ROUTI NE bilirubin COMMEN T NEGAT FREDDIE Not Available [facility] Department [address] [place], [address], 07/21/2023 06:26:41 07/20/19 24 07/20/2023 URINA LYSIS , ROUTI NE urobilinogen ,semi-qn 0.2 eu/dL 0.2-1. 0 Not Available [facility] Department [address] [place], [address], 07/21/2023 06:26:41 07/20/19 24 07/20/2023 URINA LYSIS , ROUTI NE nitrite, urine COMMEN T negati ve NEGAT FREDDIE Not Available [facility] Department [address] [place], [address], 07/21/2023 06:26:41 07/20/19 24 07/20/2023 CBC WITH DIFFE RENTI AL/PL ATELE T WBC 6.2 x10e3 /uL 3.4-10 .8 Not Available [facility] Department [address] [place], [address], 07/21/2023 06:26:42 07/20/19 24 07/20/2023 CBC WITH DIFFE RENTI AL/PL ATELE T RBC 4.26 x10e6 /uL 3.77-5 .28 Not Available [facility] Department [address] [place], [address], 07/21/2023 06:26:42 07/20/19 24 07/20/2023 CBC WITH DIFFE RENTI AL/PL ATELE T hemoglobin 13.9 g/dL 11.1-1 5.9 Not Available [facility] Department [address] [place], [address], 07/21/2023 06:26:42 07/20/19 24 07/20/2023 CBC WITH DIFFE RENTI AL/PL ATELE T hematocrit 43.0 % 34.0-4 6.6 Not Available [facility] Department [address] [place], [address], 07/21/2023 06:26:42 07/20/19 24 07/20/2023 CBC WITH DIFFE RENTI AL/PL ATELE T MCV 101 fL 79-97 above high normal Not Available [facility] Department [address] [place], [address], 07/21/2023 06:26:42 07/20/19 24 07/20/2023 CBC WITH DIFFE RENTI AL/PL ATELE T MCH 32.6 pg 26.6-3 3.0 Not Available [facility] Department [address] [place], [address], 07/21/2023 06:26:42 07/20/19 24 07/20/2023 CBC WITH DIFFE RENTI AL/PL ATELE T MCHC 32.3 g/dL 31.5-3 5.7 Not Available [facility] Department [address] [place], [address], 07/21/2023 06:26:42 07/20/19 24 07/20/2023 CBC WITH DIFFE RENTI AL/PL ATELE T RDW 13.4 % 11.5-1 4.5 Not Available [facility] Department [address] [place], [address], 07/21/2023 06:26:42 07/20/19 24 07/20/2023 CBC WITH DIFFE RENTI AL/PL ATELE T platelets 450 x10e3 /uL 150-45 0 Not Available [facility] Department [address] [place], [address], 07/21/2023 06:26:42 07/20/19 24 07/20/2023 CBC WITH DIFFE RENTI AL/PL ATELE T neutrophils 40 % notest b. Not Available [facility] Department [address] [place], [address], 07/21/2023 06:26:42 07/20/19 24 07/20/2023 CBC WITH DIFFE RENTI AL/PL ATELE T lymphs 47 % notest b. Not Available [facility] Department [address] [place], [address], 07/21/2023 06:26:42 07/20/19 24 07/20/2023 CBC WITH DIFFE RENTI AL/PL ATELE T monocytes 11 % notest b. Not Available [facility] Department [address] [place], [address], 07/21/2023 06:26:42 07/20/19 24 07/20/2023 CBC WITH DIFFE RENTI AL/PL ATELE T eos 1 % notest b. Not Available [facility] Department [address] [place], [address], 07/21/2023 06:26:42 07/20/19 24 07/20/2023 CBC WITH DIFFE RENTI AL/PL ATELE T basos 1 % notest b. Not Available [facility] Department [address] [place], [address], 07/21/2023 06:26:42 07/20/19 24 07/20/2023 CBC WITH DIFFE RENTI AL/PL ATELE T neutrophils (absolute) 2.5 x10e3 /uL 1.4-7. 0 Not Available [facility] Department [address] [place], [address], 07/21/2023 06:26:42 07/20/19 24 07/20/2023 CBC WITH DIFFE RENTI AL/PL ATELE T lymphs (absolute) 2.9 x10e3 /uL 0.7-3. 1 Not Available [facility] Department [address] [place], [address], 07/21/2023 06:26:42 07/20/19 24 07/20/2023 CBC WITH DIFFE RENTI AL/PL ATELE T monocytes(ab solute) 0.7 x10e3 /uL 0.1-0. 9 Not Available [facility] Department [address] [place], [address], 07/21/2023 06:26:42 07/20/19 24 07/20/2023 CBC WITH DIFFE RENTI AL/PL ATELE T eos (absolute) 0.1 x10e3 /uL 0.0-0. 4 Not Available [facility] Department [address] [place], [address], 07/21/2023 06:26:42 07/20/19 24 07/20/2023 CBC WITH DIFFE RENTI AL/PL ATELE T baso (absolute) 0.1 x10e3 /uL 0.0-0. 2 Not Available [facility] Department [address] [place], [address], 07/21/2023 06:26:42 07/20/19 24 07/20/2023 CBC WITH DIFFE RENTI AL/PL ATELE T immature granulocytes 0.2 % notest b. Not Available [facility] Department [address] [place], [address], 07/21/2023 06:26:42 07/20/19 24 07/20/2023 CBC WITH DIFFE RENTI AL/PL ATELE T immature grans (abs) 0.0 x10e3 /uL 0.0-0. 1 Not Available [facility] Department [address] [place], [address], 07/21/2023 06:26:42 07/20/19 24 07/20/2023 CBC WITH DIFFE RENTI AL/PL ATELE T NRBC 0 % 0-0 Not Available [facility] Department [address] [place], [address], 07/21/2023 06:26:42 08/01/19 24 08/02/2023 POTAS SIUM potassium 4.3 mmol/ L 3.5-5. 2 Not Available [facility] ([facility]) [address] [facility], [place], [address], 08/02/2023 06:18:57 08/01/19 24 08/02/2023 VITAM IN B12 WITH REFLE X vitamin B12 >2000 pg/mL 232-12 45 above high normal Not Available [facility] ([facility]) [address] [facility], [place], [address], 08/08/2023 17:09:42 08/01/19 24 08/08/2023 METHY LMALO CHAVA ACID, SERUM methylmaloni c acid, serum 107 nmol/ L 0-378 Not Available [facility] ([facility]) [address] [place], [address], 08/08/2023 17:09:43 11/14/19 24 11/15/2023 TSH RFX ON ABNOR MAL TO FREE T4 TSH 2.610 uIU/m L 0.450- 4.500 Not Available [facility] ([facility]) [address] [place], [address], 11/15/2023 13:12:23 06/06/20 24 06/07/2024 LIPID PANEL cholesterol, total 129 mg/dL 100-19 9 Not Available [facility] ([facility]) [address] [place], [address], 06/07/2024 08:27:00 06/06/20 24 06/07/2024 LIPID PANEL triglyceride s 47 mg/dL 0-149 Not Available [facility] ([facility]) [address] [place], [address], 06/07/2024 08:27:00 06/06/20 24 06/07/2024 LIPID PANEL HDL cholesterol 39 mg/dL >39 below low normal Not Available [facility] ([facility]) [address] [place], [address], 06/07/2024 08:27:00 06/06/20 24 06/07/2024 LIPID PANEL VLDL cholesterol fernando 11 mg/dL 5-40 Not Available [facility]) [address] [place], [address], 06/07/2024 08:27:00 06/06/20 24 06/07/2024 LIPID PANEL LDL chol calc ([facility]) 79 mg/dL 0-99 Not Available [facility] [address] [place], [address], 06/07/2024 08:27:00 06/06/20 24 06/07/2024 BASIC METAB OLIC PANEL (7) glucose 96 mg/dL 70-99 Not Available [facility] ([facility]) [address] [facility] [place], [address], 06/07/2024 08:27:01 06/06/20 24 06/07/2024 BASIC METAB OLIC PANEL (7) BUN 11 mg/dL 8-27 Not Available [facility] ([facility]) [address] [facility] [place] [place], [address], 06/07/2024 08:27:01 06/06/20 24 06/07/2024 BASIC METAB OLIC PANEL (7) creatinine 0.69 mg/dL 0.57-1 .00 Not Available [facility] ([facility]) [address] [facility] [place] [place], [address], 06/07/2024 08:27:01 06/06/20 24 06/07/2024 BASIC METAB OLIC PANEL (7) eGFR 93 mL/mi n/1.7 3 >59 Not Available [facility] ([facility]) [address] [facility] [place] [place], [address], 06/07/2024 08:27:01 06/06/20 24 06/07/2024 BASIC METAB OLIC PANEL (7) BUN/creatini ne ratio 16 12-28 Not Available [facility]) [address] [facility] [place] [place], [address], 06/07/2024 08:27:01 06/06/20 24 06/07/2024 BASIC METAB OLIC PANEL (7) sodium 135 mmol/ L 134-14 4 Not Available [facility] ([facility]) [address] [facility] [place] [place], [address], 06/07/2024 08:27:01 06/06/20 24 06/07/2024 BASIC METAB OLIC PANEL (7) potassium 4.1 mmol/ L 3.5-5. 2 Not Available [facility] ([facility]) [address] [place], [address], 06/07/2024 08:27:01 06/06/20 24 06/07/2024 BASIC METAB OLIC PANEL (7) chloride 98 mmol/ L 96-106 Not Available [facility] ([facility]) [address] [facility], [place], [address], 06/07/2024 08:27:01 06/06/20 24 06/07/2024 BASIC METAB OLIC PANEL (7) carbon dioxide, total 21 mmol/ L 20-29 Not Available [facility] ([facility]) [address] [facility], [place], [address], 06/07/2024 08:27:01 06/06/20 24 06/07/2024 CBC, PLATE LET, NO DIFFE RENTI AL WBC 10.7 x10e3 /uL 3.4-10 .8 Not Available [facility] ([facility]) [address] [place], [address], 06/07/2024 08:27:02 06/06/20 24 06/07/2024 CBC, PLATE LET, NO DIFFE RENTI AL RBC 4.17 x10e6 /uL 3.77-5 .28 Not Available [facility] ([facility]) [address] [facility], [place], [address], 06/07/2024 08:27:02 06/06/20 24 06/07/2024 CBC, PLATE LET, NO DIFFE RENTI AL hemoglobin 13.2 g/dL 11.1-1 5.9 Not Available [facility] ([facility]) [address] [place], [address], 06/07/2024 08:27:02 06/06/20 24 06/07/2024 CBC, PLATE LET, NO DIFFE RENTI AL hematocrit 39.4 % 34.0-4 6.6 Not Available [facility] ([facility]) [address] [place], [address], 06/07/2024 08:27:02 06/06/20 24 06/07/2024 CBC, PLATE LET, NO DIFFE RENTI AL MCV 95 fL 79-97 Not Available [facility] ([facility]) [address] [facility], [place], [address], 06/07/2024 08:27:02 06/06/20 24 06/07/2024 CBC, PLATE LET, NO DIFFE RENTI AL MCH 31.7 pg 26.6-3 3.0 Not Available [facility] ([facility]) [address] [facility], [place], [address], 06/07/2024 08:27:02 06/06/20 24 06/07/2024 CBC, PLATE LET, NO DIFFE RENTI AL MCHC 33.5 g/dL 31.5-3 5.7 Not Available [facility] ([facility]) [address] [facility], [place], [address], 06/07/2024 08:27:02 06/06/20 24 06/07/2024 CBC, PLATE LET, NO DIFFE RENTI AL RDW 12.6 % 11.7-1 5.4 Not Available [facility] ([facility] [address] [facility], [place], [address], 06/07/2024 08:27:02 06/06/20 24 06/07/2024 CBC, PLATE LET, NO DIFFE RENTI AL platelets 355 x10e3 /uL 150-45 0 Not Available [facility] ([facility]) [address] [facility], [place], [address], 06/07/2024 08:27:02 07/26/19 23 07/26/2022 XR, hernandez um No observ ation record ed. o[facility] [address] [place], [address], 01/22/2023 12:30:10 Result Notes None recorded. Problems Name Problem SNOMED Code Status Onset Date Resolution Date Notes Provider Name and Address Organization Details Recorded Time Screening for malignant neoplasm of breast Active 2021 Not Available [facility] 3 18:47:48 Screening for malignant neoplasm of colon Active 2021 Not Available [facility] 3 18:47:48 Celiac disease 766552583 Active 2021 Not Available [facility] 3 18:47:48 Nicotine dependence 11784964 Active 2021 Not Available [facility] 3 18:47:48 Hypothyroi dism 48233658 Active 2021 Not Available [facility] 3 18:47:48 Mammogram declined 141221896 Active 2021 Not Available [facility] 3 18:47:48 Colonoscop y declined 0345593761032 00 Active 2021 Not Available [facility] 3 18:47:48 Colon cancer screening declined 5792573271923 9 Active 2022 Not Available [facility] 3 18:47:48 Breast cancer screening declined 3282417936261 9103 Active 2022 Not Available [facility] 3 18:47:48 History of iron deficiency 403259335 Active 2022 Not Available [facility] 3 18:47:48 Gluten sensitivit y 791033210 Active 2022 Not Available [facility] 3 18:47:48 Tobacco dependence in remission 656383101 Active 2023 Abdiel Garcia MD Attn: Accounting ,[address] [place], [address] , [facility] 4 13:37:53 Gastroesop hageal reflux disease 031728018 Active 2023 Abdiel Garcia MD Attn: Accounting ,[address] [place], [address] , [facility] 4 13:42:16 Problem Notes None recorded. Procedures Surgical History Date Name Laterality Status Provider Name and Address Organization Details Recorded Time section completed Korin Camacho MA [facility] 01/16/2022 14:10:58 Imaging Results Imaging Date Name Status LastModified by Organiz ation Details LastModified Time 07/26/2022 XR, sternum completed [facility] [address], [place], [address], 01/22/2023 12:30:10 Procedure Notes None recorded. Medical Equipment None Reported. Allergies Allergen ID Allergen Name Allergen Category Reaction Reaction Severity Criticality Documentation Date Start Date Code Code System Note Provider Name and Address Organization Details Recorded Time 18060117 Benadryl medicatio n other Not available low 06/06/202417868 7 RxNorm knoc ks me out for hours Not Available Not Available Not Available 18060118 Sudafed medicatio n tachycard ia Not available Not available 06/06/202443220 2 RxNorm Not Available Not Available Not [...] active EPA approved 01/18/24 thru 01/17/25 case#[id number] -md,rma Not Available Not Available Not Available [...] Updated DateTime 3 163.83 cm 16 kg/m2 26599.5 6 g 14 /min 92 /min 98 % 98 % 116 mm[Hg] 80 mm[Hg] Korin Camahco MA [facility] 3 12:31:20 Date Recorded Body height Body mass index (BMI) Body weight Heart rate Oxygen saturation Oxygen saturation in Arterial blood by Pulse oximetry Systolic blood pressure Diastolic blood pressure Provider Name and Address Organization Details Last Updated DateTime 3 163.83 cm 16.4 kg/m2 82952.7 4 g 89 /min 97 % 97 % 110 mm[Hg] 70 mm[Hg] Shey Rosario MA [facility] 3 12:26:50 Date Recorded Body height Body mass index (BMI) Body weight Heart rate Oxygen saturation Oxygen saturation in Arterial blood by Pulse oximetry Systolic blood pressure Diastolic blood pressure Provider Name and Address Organization Details Last Updated DateTime 4 163.83 cm 16.2 kg/m2 59541.8 7 g 66 /min 98 % 98 % 120 mm[Hg] 76 mm[Hg] Korin Camacho MA [facility] 4 12:38:09 Date Recorded Body height Body mass index (BMI) Body weight Heart rate Oxygen saturation Oxygen saturation in Arterial blood by Pulse oximetry Respiratory rate Systolic blood pressure Diastolic blood pressure Provider Name and Address Organization Details Last Updated DateTime 4 163.83 cm 15.9 kg/m2 38416.4 g 76 /min 98 % 98 % 16 /min 116 mm[Hg] 68 mm[Hg] Korin Camacho MA [facility] 4 15:47:35 Date Recorded Body height Body mass index (BMI) Body weight Heart rate Oxygen saturation Oxygen saturation in Arterial blood by Pulse oximetry Respiratory rate Systolic blood pressure Diastolic blood pressure Provider Name and Address Organization Details Last Updated DateTime 4 163.83 cm 15.6 kg/m2 94318.2 2 g 62 /min 97 % 97 % 18 /min 110 mm[Hg] 64 mm[Hg] Korin Camacho MA [facility] 4 12:11:24 Social History Question Answer Notes LastModified by Organizat ion Details LastModified Time Tobacco Smoking Status Former Smoker Quit in Feb 2022 Abdiel Garcia MD Attn: Accounting,[address] [place], [address], [facility] 07/20/2023 12:45:12 What Is Your [...] Response Coronary Artery Disease N Other N High Blood Pressure N Atrial Fibrillation N Kidney or Bladder Problems N Thyroid Problems Y GI Problems Y Depression N COPD N Blood Clots N Skin Problems N Anemia Y Heart Attack (OR) N Anxiety Disorder N Diabetes N Muscle, [...] Recorded Time Tdap 7 completed Not Available [facility] 02/09/2023 18:47:48 COVID-19, mRNA, LNP-S, PF, 30 mcg/0.3 mL dose 1 completed Not Available [facility] 02/09/2023 18:47:48 COVID-19, mRNA, LNP-S, PF, 30 mcg/0.3 mL dose 1 completed Not Available [facility] 02/09/2023 18:47:48 Influenza, MDCK, quadrivalent, preservative 0 completed Not Available [facility] 02/09/2023 18:47:48 Influenza, high-dose, quadrivalent, PF 1 completed Not Available [facility] 02/09/2023 18:47:48 Pneumococcal conjugate PCV20, polysaccharide MML014 conjugate, adjuvant, PF 3 completed Abdiel Garcia MD Attn: Accounting[address] [place], [address], [facility] 07/20/2023 12:44:44 Past Encounters Encounter ID Performer Location Encounter Start Date Encounter Closed Date Diagnosis/Indication Diagnosis SNOMED-CT Code Diagnosis ICD10 Code Diagnosis Note [id number] Abdiel Garcia MD [facility] (Adult Med) [address] [place] [phone] 01/16/2022 13:37:12 01/17/2022 10:59:55 General examination of patient 173730299 Z00.01 Nicotine dependence 5629 4008 F17.200 She is cutting down and plans to sign up for a Nicotine replacemen t program. Hypothyroidism 97609440 E03.9 Celiac disease 663885426 K90.0 Immunization advised 310 905489 Z71.9 Osteoporosis 38481146 M8 1.0 Disorder o f lipid metabolism 397104143 E78.9 Colonoscopy declined 828 4851137 09918 Z53.20 Mammogram declined 89944 5004 Z53.20 [id number] [facility] [address] [place] [phone] 07/24/2022 11:43:16 07/26/2022 15:10:49 Disorder of lipid metabolism 051368956 E78.9 Compliant with her Atorvastat in which was previously prescribed by her cardiologi st. He put me on it years ago Her LDL is suboptimal , I wonder if her uncontroll ed Hypothyroi dism is playing a role. Nicotine dependence 5629 4008 F17.200 She is cutting down and plans to sign up for a Nicotine replacemen t program. 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 Actonel was ineffectiv e and the manufactur er could not guarantee whether or not Prolia was Gluten free. Body mass index less than 16.5 061875925 Z68.1 Colonoscopy declined 958 3262364 50336 Z53.20 Mammogram declined 83211 5004 Z53.20 Underweight 775088558 R6 3.6 Gastroesop hageal reflux disease 556816829 K21.9 History of iron deficiency 126273504 Z86.39 Breast can cer screening declined 3738686540 7509811 Z53.20 Colon canc er screening declined 3354324367 9109 Z53.20 [id number] MD Bhupinder Marks (Adult Med) [address] [place] [phone] 01/22/2023 12:10:08 01/22/2023 14:19:21 History of iron deficiency 232033250 Z86.39 She continues to refuse a colonoscop yLabs Gluten sensitivity 05780 1003 K90.41 Immunization advised 310 688282 Z71.9 Itching of skin 95154550 0 L29.9 On Vistaril Medication monitoring 39 7815919 Z51.81 Disorder o f lipid metabolism 305644817 E78.9 Labs 12/11/22 LDL 103 OV 07/24/22Comp liant with her Atorvastat in which was previously prescribed by her cardiologi st. He put me on it years ago Her LDL is suboptimal , I wonder if her uncontroll ed Hypothyroi dism is playing a role. Gastroesop hageal reflux disease 629907195 K21.9 [id number] MD Bhupinder Marks (Adult Med) [address] [place] [id number] 07/20/2023 12:29:10 07/24/2023 12:41:15 Screening for malignant neoplasm of colon 862629867 Z12.11 Gastroesop hageal reflux disease 386346363 K21.9 She deserves an EGD Breast can cer screening declined 0424900951 2064333 Z53.20 SARS-CoV-2 mRNA vaccine declined 0071350480 Z28.21 Influenza vaccination declined 413743560 Z28.21 Tobacco de pendence in remission 266040208 F17.201 General ex amination of patient 535040253 Z00.01 History of iron deficiency 038891556 Z86.39 She continues to refuse a colonoscop y Hypothyroidism 92175006 E03.9 TSH 2160 on 12/18/2022 Disorder o f lipid metabolism 690195268 E78.9 Labs OV 01/22/2023La bs 12/11/22 LDL 103 OV 07/24/22Comp liant with her Atorvastat in which was previously prescribed by her cardiologi st. He put me on it years ago Her LDL is suboptimal , I wonder if her uncontroll ed Hypothyroi dism is playing a role. [id number] Abdiel Garcia MD [facility] (Adult Med) [address] [place] [id number] 11/14/2023 15:26:25 11/15/2023 15:28:57 History of iron deficiency 255234017 Z86.39 She continues to refuse a colonoscop y and a cologuard test Breast can cer screening declined 7401466190 5380390 Z53.20 Hypothyroidism 09525341 E03.9 TSH 2160 on 12/18/2022 Disorder o f lipid metabolism 306722700 E78.9 Labs OV 01/22/2023La bs 12/11/22 LDL 103 OV 07/24/22Comp liant with her Atorvastat in which was previously prescribed by her cardiologi st. He put me on it years ago Her LDL is suboptimal , I wonder if her uncontroll ed Hypothyroi dism is playing a role. Recommenda tion declined 1300540856 91791 Z76.89 [id number] Abdiel Garcia MD [facility] (Adult Med) [address] [place] [phone] 06/06/2024 11:57:34 06/10/2024 11:11:20 Body mass index less than 16.5 348450350 Z68.1 Overweight 632674816 E66 .3 Underweight 609523614 R6 3.6 Colonoscopy declined 759 1007132 94500 Z53.20 Colon canc er screening declined 7929808817 9109 Z53.20 Breast can cer screening declined 6914595854 1474976 Z53.20 Mammogram declined 45686 5004 Z53.20 Disorder o f lipid metabolism 658319070 E78.9 Labs OV 01/22/2023La bs 12/11/22 LDL 103 OV 07/24/22Comp liant with her Atorvastat in which was previously prescribed by her cardiologi st. He put me on it years ago Her LDL is suboptimal , I wonder if her uncontroll ed Hypothyroi dism is playing a role. Hypothyroidism 40082755 E03.9 LabsTSH 2.610 on 11/14/2023 and 2.160 on 12/18/2022 History of iron deficiency 731129244 Z86.39 She continues to refuse a colonoscop y and a cologuard test Medication monitoring 39 3347670 Z51.81 Health Concerns Section Related Observation LastModified by Organization Detai ls LastModified Time None Recorded Concern Status LastModified by Organization Details LastModified Time None Recorded Advance Directives Directive None Recorded Payers Encounter Date Sequence Insurance Name Policy Number Policy Saini Covered Member ID Saini Member ID Guarantor Name 07/24/2022 2 [employer] (INDEMNITY) [id number] Rhea Julienor [id number] Rhea Julienor 07/24/2022 1 [place] Rhea Julienor [id number] Rhea Julineor 01/22/2023 2 [employer] (INDEMNITY) [id number] Rhea Julienor [id number] Rhea Julienor 01/22/2023 1 [place] Rhea Julienor [id number] Rhea Julienor 07/20/2023 2 [employer] (INDEMNITY) [id number] Rhea Julienor [id number] Rhea Hugh 07/20/2023 1 [place] Rhea Julienor [id number] Rhea Hugh 11/14/2023 2 [employer] (INDEMNITY) [id number] Rhea Julienor [id number] Rhea Hugh 11/14/2023 1 [place] Rhea Julienor [id number] Rhea Hugh 06/06/2024 2 [employer] (INDEMNITY) [id number] Rhea Julienor [id number] Rhea Julienor 06/06/2024 1 [place] Rhea Julienor [id number] 5 Rhea Reese Notes Date Note Type [...] painful. Abdiel Garcia MD Attn: Accounting[address] [place], [address], [facility] 07/24/2022 13:56:19 01/22/2023 text/html I am good I am......wait till the next time Ms Reese returns, she was told by her specialist that her itching was due to her skin rash from her Gluten sensitivity., hence her need for Hydroxyzine. She is doing well and plans to wait on her booster COVID vaccine. Abdiel Garcia MD Attn: Accounting,[address] [place], [address], [facility] 01/22/2023 12:53:51 07/20/2023 text/html Reflux/GERDRepor fredi bypatient.Symptomshea [...] Abdiel Garcia MD Attn: Accounting,[address] [place], [address], [facility] 07/20/2023 13:42:54 11/14/2023 text/html Medicare Annual Wellness [...] MD Attn: Accounting,[address] , [place], [address], [facility] 11/14/2023 16:13:55 06/06/2024 text/html Medicare [...] better. Abdiel Garcia MD Attn: Accounting[address] [place], [address], [facility] 06/06/2024 13:14:10 OBGyn Episode No OBEpisode recorded.
== END 2024-09-02 10:45 | disposition home or self-care (01) ==
PROVIDERS: Visit Provider Nurse Practitioner Adult Health
DX: S32.000A Wedge compression fracture of unspecified lumbar vertebra, initial encounter for closed fracture (principal); X58.XXXA Exposure to other specified factors, initial encounter; S22.080S Wedge compression fracture of T11-T12 vertebra, sequela; X58.XXXS Exposure to other specified factors, sequela
CPT/HCPCS: 72100

== ENCOUNTER 2024-10-14 10:42 | Outpatient (CLI) | payer MEDICARE, BC, SELFPAY ==
--- NOTE | ~2024-10-14 | XR_ITS ---
3 VIEWS LUMBAR SPINE Ordering provider: Leslie Gorman APRN History: . S32.040A - Wedge compression fracture of fourth lumbar ve... . Comparison: September 02, 2024 FINDINGS: VERTEBRAL BODIES: Compression fracture of L1, L2 and L4. Compression fracture of T11 is also noted. N o change from previous examination. Levoscoliosis. DISK SPACES: Normal. SOFT TISSUES: Aortic calcification. IMPRESSION: Compression fracture of T11, L1, L2 and L4 unchanged from previous examination. Reviewed, dictated and finalized at location A.
--- OUTSIDE RECORDS SUMMARY | 2024-10-14 12:01 | XMS_ITS | Continuity of Care Document ---
Author Organization [facility] [place] [address] [place] [address] [address] [place] [address] Phone Care Team Providers Care Road Oiler Name Role Phone Steff Sow Unavailable Unavailable Procedures Procedure Date Eye Exam Established Pt Advance Directives Directive Yes / No Effective Date File Name No Information Encounters Encounter Description Practice Location Reason(s) For Visit Diagnoses Date Provider Providers Copied on Encounter [facility], [address] [place] [address] [address], [place], [place], [id number], [place] tel:[phone] SEC [facility] No Information [address] , [address], [place], [address], [place]. tel:[phone] Family History Family Member Type Diagnosis Age [...]
--- OUTSIDE RECORDS SUMMARY | 2024-10-14 12:01 | XMS_ITS | Data Portability ---
Author Organization RISSA CHARLYIvan Magallon Address [address] [place] [address] Assessment No assessment recorded. Plan of Treatment Reminders Order Date Submit Date Provider Last Modified By Organization Details Last Modified Time Details Appointments None recorded. Lab lipid panel, serum 2023 024 [facility], [address], [place], [address], 4 08:27:00 basic metabolic 1998 panel, serum or plasma 2023 024 [facility], [address], [place], [address], 4 08:27:01 CBC 2023 024 [facility], [address], [place], [address], 4 08:27:02 TSH, ultra-sensi tive, serum 2023 024 [facility], [address], [place], [address], 4 13:12:23 CBC w/ auto diff 2023 024 [facility], [address], [address], [place], [address], 4 06:26:42 CMP, serum or plasma 2023 024 [facility], [address], [place], [address], 4 06:26:40 urinalysis, dipstick 2023 024 [facility] Pena, [address], [address], [place], [address], 4 06:26:41 lipid panel, serum 2023 024 [facility] Pena, [address], [address], [place], [address], 4 06:26:40 noninvasive colorectal cancer DNA + occult blood screening, QL, stool 2023 024 [facility] (Cologuard Orders Only), [address], [address], [place], [address], 4 15:41:53 iron + total iron-bindin g capacity (TIBC), serum 2022 023 [facility] Pena, [address], [address], [place], [address], 3 08:21:46 ferritin, serum or plasma 2022 023 [facility], [address], [address], [place], [address], 3 08:21:47 hepatic function panel, serum 2022 023 [facility], [address], [address], [place], [address], 3 08:21:45 CBC w/ auto diff 2022 023 [facility] Pena, [address], [place], [address], 3 08:21:47 lipid panel, serum 2022 023 [facility], [address], [place], [address], 3 19:08:41 Referral gastroenter ologist referral - Chronic GERD 2023 024 amber Bal MD, [address] [facility] [address], [place], [address], 4 17:27:26 Procedures None recorded. Surgeries None recorded. Imaging XR, chest, [address] [facility] (One Call Scheduling), [address] [place], [address], 4 15:42:09 XR, sternum - Deformity of the lower part of the sternum, post trauma 2022 023 [facility] (One Call Scheduling), [address] [place], [address], 3 16:43:04 Medication Orders atorvastati n 10 mg tablet 2023 024 [facility], [address] [place] [address], [address], 4 12:34:12 ferrous sulfate 325 mg (65 mg iron) tablet 2023 024 [facility], [facility] [place], [address], 4 12:34:10 levothyroxi ne 112 mcg tablet 2023 024 [facility], [address] [place] [address], [address], 4 12:34:10 omeprazole 40 mg capsule,del ayed release 2023 024 [facility], [address] [place] [address], [address], 4 13:04:21 ferrous sulfate 325 mg (65 mg iron) tablet 2023 024 [facility], [address] [place] [address], [address], 4 12:59:47 ferrous sulfate 325 mg (65 mg iron) tablet 2022 023 [facility], [address] [place] [address], [address], 3 12:47:14 omeprazole 20 mg capsule,del ayed release 2022 023 [facility], [address] [place] [address], [address], 4 13:03:16 atorvastati n 10 mg tablet 2022 023 [facility]UL[facility], [address] [place] [address], [address], 3 12:50:48 atorvastati n 10 mg tablet 2022 023 [facility], [address] [place] [address], [address], 3 13:46:33 omeprazole 40 mg capsule,del ayed release 2022 023 o[facility]ao [facility], [address] [place] [address], [address], 3 12:13:57 ferrous sulfate 325 mg (65 mg iron) tablet 2022 023 PAULIE [facility], [address] [place] [address], [address], 03:32:51 Zithromax Z-Oliver 250 mg tablet 2022 023 [id number], [address], [place], [address], 12:36:28 Patient TargetsNo targets recorded. Patient Instructions Encounter Date Encounter Id Patient Instructions Last Modified By Organization Details Last Modified Time 07/24/2022 [id number] gastroesophageal reflux disease (GERD): care instructions oajao [...] above) oajao Not available 07/24/2022 13:54:28 01/22/2023 [id number] Labs Follow up i n 6 months and PRN oajao Not available 01/22/2023 12:40:40 07/20/2023 [id number] gastroesophageal reflux disease (GERD): care instructions oajao Not available 07/20/2023 12:56:09 hypothyroidism: care instructions oajao Not available 07/20/2023 13:01:43 CXR Labs GI Cologuard Omeprazole 40 mg Follow up in 3 months and PRN oajao Not available 07/20/2023 13:03:08 11/14/2023 [id number] Labs Follow up in 6 months and PRN oajao Not available 11/14/2023 15:58:54 06/06/2024 [id number] A healthy lifest yle: care instructions oajao Not available 06/06/2024 12:25:13 eating healthy foods: care instructions oajao Not available 06/06/2024 12:25:53 Labs Follow up i n 6 months and PRN oajao Not available 06/06/2024 12:37:30 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 Gastroesophageal reflux disease Chronic GERD Chronic GERD Referring Physician: Abdiel Garcia, Internal Medicine, Encounter Date: 07/20/2023 Results Created Date Observation Date Name Description Value Unit Range Abnormal Flag Note LastModifiedBy Organization Detail LastModifiedTime 07/19/1907/19/2024 COLOG UARD cologuard result Cancel led - Order d not applic able Not Available [facility] (Cologuard Orders Only) [address], [place], [address], 07/19/2024 07:52:43 07/24/19 23 07/25/2022 TSH TSH 0.285 uIU/m L 0.450- 4.500 below low normal Not Available [facility] ([facility]) [address] [place], [address], 07/25/2022 08:17:06 07/25/19 23 07/26/2022 TSH TSH 0.389 uIU/m L 0.450- 4.500 below low normal Not Available [facility] ([facility]) [address] [place], [address], 07/26/2022 08:18:34 12/12/19 23 12/11/2022 LIPID PANEL cholesterol, total 159.2 mg/dL 140.0- 200.0 Not Available [facility] [address] [place], [address], 12/11/2022 19:08:40 12/12/19 23 12/11/2022 LIPID PANEL triglyceride s 66 mg/dL <=150 Not Available [facility] [address] [place], [address], 12/11/2022 19:08:40 12/12/19 23 12/11/2022 LIPID PANEL HDL cholesterol 42.8 mg/dL 40.0-1 00.0 Not Available [facility] [address] [place], [address], 12/11/2022 19:08:40 12/12/19 23 12/11/2022 LIPID PANEL VLDL cholesterol fernando 13.20 mg/dL 5.00-4 0.00 Not Available [facility] [address] [place], [address], 12/11/2022 19:08:40 12/12/19 23 12/11/2022 LIPID PANEL LDL chol calc ([facility]) 103.4 mg/dL 0.0-99 .0 above high normal Not Available [facility] [address] [place], [address], 12/11/2022 19:08:40 12/19/19 23 12/19/2022 TSH RFX ON ABNOR MAL TO FREE T4 TSH 2.160 uIU/m L 0.450- 4.500 Not Available [facility] ([facility]) [address] [place], [address], 12/19/2022 06:15:13 01/23/20 23 01/23/2023 IRON AND TIBC iron bind.cap.(TI BC) 234 ug/dL 250-45 0 below low normal Not Available [facility] ([facility]) [address] [place], [address], 01/23/2023 08:21:46 01/23/20 23 01/23/2023 IRON AND TIBC UIBC 138 ug/dL 118-36 9 Not Available [facility] ([facility]) [address] [place], [address], 01/23/2023 08:21:46 01/23/20 23 01/23/2023 IRON AND TIBC iron 96 ug/dL 27-139 Not Available [facility] ([facility]) [address] [place], [address], 01/23/2023 08:21:46 01/23/20 23 01/23/2023 IRON AND TIBC iron saturation 41 % 15-55 Not Available [facility] ([facility]) [address] [facility], [place], [address], 01/23/2023 08:21:46 01/23/20 23 01/23/2023 CECE TIN ferritin 319 NG/mL 15-150 above high normal Not Available [facility] ([facility]) [address] [facility], [place], [address], 01/23/2023 08:21:47 01/23/20 23 01/23/2023 CBC WITH DIFFE RENTI AL/PL ATELE T WBC 5.9 x10e3 /uL 3.4-10 .8 Not Available [facility] ([facility]) [address] [place], [address], 01/23/2023 08:21:47 01/23/20 23 01/23/2023 CBC WITH DIFFE RENTI AL/PL ATELE T RBC 4.07 x10e6 /uL 3.77-5 .28 Not Available [facility] ([facility]) [address] [place], [address], 01/23/2023 08:21:47 01/23/20 23 01/23/2023 CBC WITH DIFFE RENTI AL/PL ATELE T hemoglobin 13.9 g/dL 11.1-1 5.9 Not Available [facility] ([facility]) [address] [place], [address], 01/23/2023 08:21:47 01/23/20 23 01/23/2023 CBC WITH DIFFE RENTI AL/PL ATELE T hematocrit 39.6 % 34.0-4 6.6 Not Available [facility] ([facility]) [address] [place], [address], 01/23/2023 08:21:47 01/23/20 23 01/23/2023 CBC WITH DIFFE RENTI AL/PL ATELE T MCV 97 fL 79-97 Not Available [facility] ([facility]) [address] [place], [address], 01/23/2023 08:21:47 01/23/20 23 01/23/2023 CBC WITH DIFFE RENTI AL/PL ATELE T MCH 34.2 pg 26.6-3 3.0 above high normal Not Available [facility] ([facility]) [address] [facility], [place], [address], 01/23/2023 08:21:47 01/23/20 23 01/23/2023 CBC WITH DIFFE RENTI AL/PL ATELE T MCHC 35.1 g/dL 31.5-3 5.7 Not Available [facility] ([facility]) [address] [facility], [place], [address], 01/23/2023 08:21:47 01/23/20 23 01/23/2023 CBC WITH DIFFE RENTI AL/PL ATELE T RDW 12.3 % 11.7-1 5.4 Not Available [facility] ([facility]) [address] [facility], [place], [address], 01/23/2023 08:21:47 01/23/20 23 01/23/2023 CBC WITH DIFFE RENTI AL/PL ATELE T platelets 380 x10e3 /uL 150-45 0 Not Available [facility] ([facility]) [address] [facility], [place], [address], 01/23/2023 08:21:47 01/23/20 23 01/23/2023 CBC WITH DIFFE RENTI AL/PL ATELE T neutrophils 42 % notest ab. Not Available [facility] ([facility]) [address] [place], [address], 01/23/2023 08:21:47 01/23/20 23 01/23/2023 CBC WITH DIFFE RENTI AL/PL ATELE T lymphs 45 % notest ab. Not Available [facility] ([facility]) [address] [place], [address], 01/23/2023 08:21:47 01/23/20 23 01/23/2023 CBC WITH DIFFE RENTI AL/PL ATELE T monocytes 11 % notest ab. Not Available [facility] ([facility]) [address] [facility], [place], [address], 01/23/2023 08:21:47 01/23/20 23 01/23/2023 CBC WITH DIFFE RENTI AL/PL ATELE T eos 1 % notest ab. Not Available [facility] ([facility]) [address] [facility], [place], [address], 01/23/2023 08:21:47 01/23/20 23 01/23/2023 CBC WITH DIFFE RENTI AL/PL ATELE T basos 1 % notest ab. Not Available [facility] ([facility]) [address] [facility], [place], [address], 01/23/2023 08:21:47 01/23/20 23 01/23/2023 CBC WITH DIFFE RENTI AL/PL ATELE T neutrophils (absolute) 2.5 x10e3 /uL 1.4-7. 0 Not Available [facility] ([facility]) [address] [facility], [place], [address], 01/23/2023 08:21:47 01/23/20 23 01/23/2023 CBC WITH DIFFE RENTI AL/PL ATELE T lymphs (absolute) 2.7 x10e3 /uL 0.7-3. 1 Not Available [facility] ([facility]) [address] [place], [address], 01/23/2023 08:21:47 01/23/20 23 01/23/2023 CBC WITH DIFFE RENTI AL/PL ATELE T monocytes(ab solute) 0.6 x10e3 /uL 0.1-0. 9 Not Available [facility] ([facility]) [address] [place], [address], 01/23/2023 08:21:47 01/23/20 23 01/23/2023 CBC WITH DIFFE RENTI AL/PL ATELE T eos (absolute) 0.1 x10e3 /uL 0.0-0. 4 Not Available [facility] ([facility]) [address] [facility], [place], [address], 01/23/2023 08:21:47 01/23/20 23 01/23/2023 CBC WITH DIFFE RENTI AL/PL ATELE T baso (absolute) 0.1 x10e3 /uL 0.0-0. 2 Not Available [facility] ([facility]) [address] [facility], [place], [address], 01/23/2023 08:21:47 01/23/20 23 01/23/2023 CBC WITH DIFFE RENTI AL/PL ATELE T immature granulocytes 0 % notest ab. Not Available [facility] ([facility]) [address] [facility], [place], [address], 01/23/2023 08:21:47 01/23/20 23 01/23/2023 CBC WITH DIFFE RENTI AL/PL ATELE T immature grans (abs) 0.0 x10e3 /uL 0.0-0. 1 Not Available [facility] ([facility]) [address] [place], [address], 01/23/2023 08:21:47 01/23/20 23 01/23/2023 HEPAT IC FUNCT ION PANEL (7) protein, total 6.6 g/dL 6.0-8. 5 Not Available [facility] ([facility]) [address] [place], [address], 01/23/2023 08:21:45 01/23/20 23 01/23/2023 HEPAT IC FUNCT ION PANEL (7) albumin 4.5 g/dL 3.9-4. 9 Not Available [facility] ([facility]) [address] [facility], [place], [address], 01/23/2023 08:21:45 01/23/20 23 01/23/2023 HEPAT IC FUNCT ION PANEL (7) bilirubin, total 0.3 mg/dL 0.0-1. 2 Not Available [facility] ([facility]) [address] [facility], [place], [address], 01/23/2023 08:21:45 01/23/20 23 01/23/2023 HEPAT IC FUNCT ION PANEL (7) bilirubin, direct 0.11 mg/dL 0.00-0 .40 Not Available [facility] ([facility]) [address] [place], [address], 01/23/2023 08:21:45 01/23/20 23 01/23/2023 HEPAT IC FUNCT ION PANEL (7) alkaline phosphatase 77 IU/L 44-121 Not Available [facility] ([facility]) [address] [facility], [place], [address], 01/23/2023 08:21:45 01/23/20 23 01/23/2023 HEPAT IC FUNCT ION PANEL (7) AST (SGOT) 23 IU/L 0-40 Not Available [facility] ([facility]) [address] [facility], [place], [address], 01/23/2023 08:21:45 01/23/20 23 01/23/2023 HEPAT IC FUNCT ION PANEL (7) ALT (SGPT) 21 IU/L 0-32 Not Available [facility] ([facility]) [address] [place], [address], 01/23/2023 08:21:45 07/20/19 24 07/21/2023 LIPID PANEL cholesterol, total 165 mg/dL 100-19 9 Not Available [facility] [address] [place], [address], 07/21/2023 06:26:40 07/20/19 24 07/21/2023 LIPID PANEL triglyceride s 81 mg/dL 0-149 Not Available [facility] [address] [place] [address], [address], 07/21/2023 06:26:40 07/20/19 24 07/21/2023 LIPID PANEL HDL cholesterol 47 mg/dL 40-999 Not Available [facility] Department [address] [place] [address], [address], 07/21/2023 06:26:40 07/20/19 24 07/21/2023 LIPID PANEL VLDL cholesterol fernando 16 mg/dL 5-40 Not Available [facility] [address] [place] [address], [address], 07/21/2023 06:26:40 07/20/19 24 07/21/2023 LIPID PANEL LDL chol calc (nih) 113 mg/dL 0-99 above high normal Not Available [facility] [address] [place] [address], [address], 07/21/2023 06:26:40 07/20/19 24 07/21/2023 COMP. METAB OLIC PANEL (14) glucose 86 mg/dL 70-99 Not Available [facility] [address] [place] [address], [address], 07/21/2023 06:26:40 07/20/19 24 07/21/2023 COMP. METAB OLIC PANEL (14) BUN 10 mg/dL 8-27 Not Available [facility] [address] [place], [address], 07/21/2023 06:26:40 07/20/19 24 07/21/2023 COMP. METAB OLIC PANEL (14) creatinine 0.69 mg/dL 0.76-1 .27 below low normal Not Available [facility] [address] [place] [address], [address], 07/21/2023 06:26:40 07/20/19 24 07/21/2023 COMP. METAB OLIC PANEL (14) eGFR 93 >=60 Units for eGFR value s are mL/mi n/1.7 3 The eGFR Calcu latio n has not been valid ated for patie nts under the age of 18. If test resul ts are displ ayed for a patie nt under the age of 18, disre karma that value . Not Available [facility] [address] [place] [address], [address], 07/21/2023 06:26:40 07/20/19 24 07/21/2023 COMP. METAB OLIC PANEL (14) BUN/creatini ne ratio 14 10-28 Not Available [facility] [address] [place] [address], [address], 07/21/2023 06:26:40 07/20/19 24 07/21/2023 COMP. METAB OLIC PANEL (14) sodium 142 mmol/ L 134-14 4 Not Available [facility] [address] [place] [address], [address], 07/21/2023 06:26:40 07/20/19 24 07/21/2023 COMP. METAB OLIC PANEL (14) potassium 5.5 mmol/ L 3.5-5. 2 above high normal Not Available [facility] [address] [place] [address], [address], 07/21/2023 06:26:40 07/20/19 24 07/21/2023 COMP. METAB OLIC PANEL (14) chloride 104 mmol/ L 96-106 Not Available [facility] [address] [place] [address], [address], 07/21/2023 06:26:40 07/20/19 24 07/21/2023 COMP. METAB OLIC PANEL (14) carbon dioxide, total 26 mmol/ L 20-29 Not Available [facility] [address] [place] [address], [address], 07/21/2023 06:26:40 07/20/19 24 07/21/2023 COMP. METAB OLIC PANEL (14) calcium 10.1 mg/dL 8.7-10 .3 Not Available [facility] [address] [place], [address], 07/21/2023 06:26:40 07/20/19 24 07/21/2023 COMP. METAB OLIC PANEL (14) protein, total 7.2 g/dL 6.0-8. 5 Not Available [facility] [address] [place], [address], 07/21/2023 06:26:40 07/20/19 24 07/21/2023 COMP. METAB OLIC PANEL (14) albumin 4.7 g/dL 3.8-4. 8 Not Available [facility] [address] [place], [address], 07/21/2023 06:26:40 07/20/19 24 07/21/2023 COMP. METAB OLIC PANEL (14) globulin, total 2.5 g/dL 1.5-4. 5 Not Available [facility] [address] [place], [address], 07/21/2023 06:26:40 07/20/19 24 07/21/2023 COMP. METAB OLIC PANEL (14) A/G ratio 2.0 1.2-2. 2 Not Available [facility] [address] [place], [address], 07/21/2023 06:26:40 07/20/19 24 07/21/2023 COMP. METAB OLIC PANEL (14) bilirubin, total 0.3 mg/dL 0.0-1. 2 Not Available [facility] [address] [place], [address], 07/21/2023 06:26:40 07/20/19 24 07/21/2023 COMP. METAB OLIC PANEL (14) alkaline phosphatase 81 IU/L 44-121 Not Available [facility] Department [address] [place], [address], 07/21/2023 06:26:40 07/20/19 24 07/21/2023 COMP. METAB OLIC PANEL (14) AST (SGOT) 28 IU/L 0-40 Not Available [facility] Department [address] [place], [address], 07/21/2023 06:26:40 07/20/19 24 07/21/2023 COMP. METAB OLIC PANEL (14) ALT (SGPT) 27 IU/L 0-32 Not Available [facility] Department [address] [place], [address], 07/21/2023 06:26:40 07/20/19 24 07/20/2023 URINA LYSIS , ROUTI NE specific gravity SEE BELOW: 1.005- 1.030 abnormal <=1.0 05 Not Available [facility] [address] [place], [address], 07/21/2023 06:26:41 07/20/19 24 07/20/2023 URINA LYSIS , ROUTI NE pH 6.5 5.0-7. 0 Not Available [facility] [address] [place], [address], 07/21/2023 06:26:41 07/20/19 24 07/20/2023 URINA LYSIS , ROUTI NE urine-color YELLOW yellow Not Available [facility] Department [address] [place], [address], 07/21/2023 06:26:41 07/20/19 24 07/20/2023 URINA LYSIS , ROUTI NE appearance CLEAR Not Available [facility] Department [address] [place], [address], 07/21/2023 06:26:41 07/20/19 24 07/20/2023 URINA LYSIS , ROUTI NE WBC esterase COMMEN T NEGAT FREDDIE Not Available [facility] [address] [place], [address], 07/21/2023 06:26:41 07/20/19 24 07/20/2023 URINA LYSIS , ROUTI NE protein COMMEN T NEGAT FREDDIE Not Available [facility] [address] [place], [address], 07/21/2023 06:26:41 07/20/19 24 07/20/2023 URINA LYSIS , ROUTI NE glucose COMMEN T NEGAT FREDDIE Not Available [facility] [address] [place], [address], 07/21/2023 06:26:41 07/20/19 24 07/20/2023 URINA LYSIS , ROUTI NE ketones COMMEN T NEGAT FREDDIE Not Available [facility] [address] [place], [address], 07/21/2023 06:26:41 07/20/19 24 07/20/2023 URINA LYSIS , ROUTI NE occult blood COMMEN T NEGAT FREDDIE Not Available [facility] [address] [facility], [place], [address], 07/21/2023 06:26:41 07/20/19 24 07/20/2023 URINA LYSIS , ROUTI NE bilirubin COMMEN T NEGAT FREDDIE Not Available [facility] [address] [place], [address], 07/21/2023 06:26:41 07/20/19 24 07/20/2023 URINA LYSIS , ROUTI NE urobilinogen ,semi-qn 0.2 eu/dL 0.2-1. 0 Not Available [facility] [address] [place], [address], 07/21/2023 06:26:41 07/20/19 24 07/20/2023 URINA LYSIS , ROUTI NE nitrite, urine COMMEN T negati ve NEGAT FREDDIE Not Available [facility] [address] [place], [address], 07/21/2023 06:26:41 07/20/19 24 07/20/2023 CBC WITH DIFFE RENTI AL/PL ATELE T WBC 6.2 x10e3 /uL 3.4-10 .8 Not Available [facility] [address] [place], [address], 07/21/2023 06:26:42 07/20/19 24 07/20/2023 CBC WITH DIFFE RENTI AL/PL ATELE T RBC 4.26 x10e6 /uL 3.77-5 .28 Not Available [facility] [address] [place], [address], 07/21/2023 06:26:42 07/20/19 24 07/20/2023 CBC WITH DIFFE RENTI AL/PL ATELE T hemoglobin 13.9 g/dL 11.1-1 5.9 Not Available [facility] [address] [place], [address], 07/21/2023 06:26:42 07/20/19 24 07/20/2023 CBC WITH DIFFE RENTI AL/PL ATELE T hematocrit 43.0 % 34.0-4 6.6 Not Available [facility] [address] [place], [address], 07/21/2023 06:26:42 07/20/19 24 07/20/2023 CBC WITH DIFFE RENTI AL/PL ATELE T MCV 101 fL 79-97 above high normal Not Available [facility] [address] [place], [address], 07/21/2023 06:26:42 07/20/19 24 07/20/2023 CBC WITH DIFFE RENTI AL/PL ATELE T MCH 32.6 pg 26.6-3 3.0 Not Available [facility] [address] [place], [address], 07/21/2023 06:26:42 07/20/19 24 07/20/2023 CBC WITH DIFFE RENTI AL/PL ATELE T MCHC 32.3 g/dL 31.5-3 5.7 Not Available [facility] [address] [place], [address], 07/21/2023 06:26:42 07/20/19 24 07/20/2023 CBC WITH DIFFE RENTI AL/PL ATELE T RDW 13.4 % 11.5-1 4.5 Not Available [facility] [address] [place], [address], 07/21/2023 06:26:42 07/20/19 24 07/20/2023 CBC WITH DIFFE RENTI AL/PL ATELE T platelets 450 x10e3 /uL 150-45 0 Not Available [facility] [address] [place], [address], 07/21/2023 06:26:42 07/20/19 24 07/20/2023 CBC WITH DIFFE RENTI AL/PL ATELE T neutrophils 40 % notest b. Not Available [facility] [address] [place], [address], 07/21/2023 06:26:42 07/20/19 24 07/20/2023 CBC WITH DIFFE RENTI AL/PL ATELE T lymphs 47 % notest b. Not Available [facility] [address] [place], [address], 07/21/2023 06:26:42 07/20/19 24 07/20/2023 CBC WITH DIFFE RENTI AL/PL ATELE T monocytes 11 % notest b. Not Available [facility] [address] [place], [address], 07/21/2023 06:26:42 07/20/19 24 07/20/2023 CBC WITH DIFFE RENTI AL/PL ATELE T eos 1 % notest b. Not Available [facility] [address] [place], [address], 07/21/2023 06:26:42 07/20/19 24 07/20/2023 CBC WITH DIFFE RENTI AL/PL ATELE T basos 1 % notest b. Not Available [facility] [address] [place], [address], 07/21/2023 06:26:42 07/20/19 24 07/20/2023 CBC WITH DIFFE RENTI AL/PL ATELE T neutrophils (absolute) 2.5 x10e3 /uL 1.4-7. 0 Not Available [facility] [address] [place], [address], 07/21/2023 06:26:42 07/20/19 24 07/20/2023 CBC WITH DIFFE RENTI AL/PL ATELE T lymphs (absolute) 2.9 x10e3 /uL 0.7-3. 1 Not Available [facility] [address] [place], [address], 07/21/2023 06:26:42 07/20/19 24 07/20/2023 CBC WITH DIFFE RENTI AL/PL ATELE T monocytes(ab solute) 0.7 x10e3 /uL 0.1-0. 9 Not Available [facility] [address] [place], [address], 07/21/2023 06:26:42 07/20/19 24 07/20/2023 CBC WITH DIFFE RENTI AL/PL ATELE T eos (absolute) 0.1 x10e3 /uL 0.0-0. 4 Not Available [facility] [address] [place], [address], 07/21/2023 06:26:42 07/20/19 24 07/20/2023 CBC WITH DIFFE RENTI AL/PL ATELE T baso (absolute) 0.1 x10e3 /uL 0.0-0. 2 Not Available [facility] [address] [place], [address], 07/21/2023 06:26:42 07/20/19 24 07/20/2023 CBC WITH DIFFE RENTI AL/PL ATELE T immature granulocytes 0.2 % notest b. Not Available [facility] [address] [place], [address], 07/21/2023 06:26:42 07/20/19 24 07/20/2023 CBC WITH DIFFE RENTI AL/PL ATELE T immature grans (abs) 0.0 x10e3 /uL 0.0-0. 1 Not Available [facility] [address] [place], [address], 07/21/2023 06:26:42 07/20/19 24 07/20/2023 CBC WITH DIFFE RENTI AL/PL ATELE T NRBC 0 % 0-0 Not Available [facility] [address] [place], [address], 07/21/2023 06:26:42 08/01/19 24 08/02/2023 POTAS SIUM potassium 4.3 mmol/ L 3.5-5. 2 Not Available [facility] ([facility]) [address] [facility], [place], [place], [address], 08/02/2023 06:18:57 08/01/19 24 08/02/2023 VITAM IN B12 WITH REFLE X vitamin B12 >2000 pg/mL 232-12 45 above high normal Not Available [facility] ([facility]) [address] [facility], [place], [address], 08/08/2023 17:09:42 08/01/19 24 08/08/2023 METHY LMALO CHAVA ACID, SERUM methylmaloni c acid, serum 107 nmol/ L 0-378 Not Available [facility] ([facility]) [address] [place], [address], 08/08/2023 17:09:43 11/14/19 24 11/15/2023 TSH RFX ON ABNOR MAL TO FREE T4 TSH 2.610 uIU/m L 0.450- 4.500 Not Available [facility] ([facility]) [address] [place], [address], 11/15/2023 13:12:23 06/06/20 24 06/07/2024 LIPID PANEL cholesterol, total 129 mg/dL 100-19 9 Not Available [facility] ([facility]) [address] [place], [address], 06/07/2024 08:27:00 06/06/20 24 06/07/2024 LIPID PANEL triglyceride s 47 mg/dL 0-149 Not Available [facility] ([facility] [address] [place], [address], 06/07/2024 08:27:00 06/06/20 24 06/07/2024 LIPID PANEL HDL cholesterol 39 mg/dL >39 below low normal Not Available [facility] ([facility]) [address] [place], [address], 06/07/2024 08:27:00 06/06/20 24 06/07/2024 LIPID PANEL VLDL cholesterol fernando 11 mg/dL 5-40 Not Available [facility] ([facility]) [address] [place], [address], 06/07/2024 08:27:00 06/06/20 24 06/07/2024 LIPID PANEL LDL chol calc ([facility]) 79 mg/dL 0-99 Not Available [facility] [address] [place], [address], 06/07/2024 08:27:00 06/06/20 24 06/07/2024 BASIC METAB OLIC PANEL (7) glucose 96 mg/dL 70-99 Not Available [facility] ([facility]) [address] [facility] [place], [address], 06/07/2024 08:27:01 06/06/20 24 06/07/2024 BASIC METAB OLIC PANEL (7) BUN 11 mg/dL 8-27 Not Available [facility] ([facility]) [address] [facility] [place], [address], 06/07/2024 08:27:01 06/06/20 24 06/07/2024 BASIC METAB OLIC PANEL (7) creatinine 0.69 mg/dL 0.57-1 .00 Not Available [facility] ([facility]) [address] [facility], [address], 06/07/2024 08:27:01 06/06/20 24 06/07/2024 BASIC METAB OLIC PANEL (7) eGFR 93 mL/mi n/1.7 3 >59 Not Available [facility] ([facility]) [address] [facility] [place], [address], 06/07/2024 08:27:01 06/06/20 24 06/07/2024 BASIC METAB OLIC PANEL (7) BUN/creatini ne ratio 16 12-28 Not Available [facility] ([facility]) [address] [facility] [place], [address], 06/07/2024 08:27:01 06/06/20 24 06/07/2024 BASIC METAB OLIC PANEL (7) sodium 135 mmol/ L 134-14 4 Not Available [facility] ([facility]) [address] [facility] [place], [address], 06/07/2024 08:27:01 06/06/20 24 06/07/2024 BASIC METAB OLIC PANEL (7) potassium 4.1 mmol/ L 3.5-5. 2 Not Available [facility] ([facility]) [address] [place], [address], 06/07/2024 08:27:01 06/06/20 24 06/07/2024 BASIC METAB OLIC PANEL (7) chloride 98 mmol/ L 96-106 Not Available [facility] ([facility]) [address] [facility], [place], [address], 06/07/2024 08:27:01 06/06/20 24 06/07/2024 BASIC METAB OLIC PANEL (7) carbon dioxide, total 21 mmol/ L 20-29 Not Available [facility] ([facility]) [address] [facility], [place], [address], 06/07/2024 08:27:01 06/06/20 24 06/07/2024 CBC, PLATE LET, NO DIFFE RENTI AL WBC 10.7 x10e3 /uL 3.4-10 .8 Not Available [facility] ([facility]) [address] [place], [address], 06/07/2024 08:27:02 06/06/20 24 06/07/2024 CBC, PLATE LET, NO DIFFE RENTI AL RBC 4.17 x10e6 /uL 3.77-5 .28 Not Available [facility] ([facility]) [address] [facility], [place], [address], 06/07/2024 08:27:02 06/06/20 24 06/07/2024 CBC, PLATE LET, NO DIFFE RENTI AL hemoglobin 13.2 g/dL 11.1-1 5.9 Not Available [facility] ([facility]) [address] [place], [address], 06/07/2024 08:27:02 06/06/20 24 06/07/2024 CBC, PLATE LET, NO DIFFE RENTI AL hematocrit 39.4 % 34.0-4 6.6 Not Available [facility] ([facility]) [address] [place], [address], 06/07/2024 08:27:02 06/06/20 24 06/07/2024 CBC, PLATE LET, NO DIFFE RENTI AL MCV 95 fL 79-97 Not Available [facility] ([facility]) [address] [facility], [place], [address], 06/07/2024 08:27:02 06/06/20 24 06/07/2024 CBC, PLATE LET, NO DIFFE RENTI AL MCH 31.7 pg 26.6-3 3.0 Not Available [facility] ([facility]) [address] [facility], [place], [address], 06/07/2024 08:27:02 06/06/20 24 06/07/2024 CBC, PLATE LET, NO DIFFE RENTI AL MCHC 33.5 g/dL 31.5-3 5.7 Not Available [facility] ([facility]) [address] [facility], [place], [address], 06/07/2024 08:27:02 06/06/20 24 06/07/2024 CBC, PLATE LET, NO DIFFE RENTI AL RDW 12.6 % 11.7-1 5.4 Not Available [facility] ([facility]) [address] [facility], [place], [address], 06/07/2024 08:27:02 06/06/20 24 06/07/2024 CBC, PLATE LET, NO DIFFE RENTI AL platelets 355 x10e3 /uL 150-45 0 Not Available [facility] ([facility]) [address] [facility], [place], [address], 06/07/2024 08:27:02 07/26/19 23 07/26/2022 XR, hernandez um No observ ation record ed. [facility] [address] [place], [address], 01/22/2023 12:30:10 Result Notes None recorded. Problems Name Problem SNOMED Code Status Onset Date Resolution Date Notes Provider Name and Address Organization Details Recorded Time Screening for malignant neoplasm of breast Active 2021 Not Available [facility] 3 18:47:48 Screening for malignant neoplasm of colon Active 2021 Not Available [facility] 3 18:47:48 Celiac disease 493079565 Active 2021 Not Available [facility] 3 18:47:48 Nicotine dependence 92641154 Active 2021 Not Available [facility] 3 18:47:48 Hypothyroi dism 10064016 Active 2021 Not Available [facility] 3 18:47:48 Mammogram declined 025665090 Active 2021 Not Available [facility] 3 18:47:48 Colonoscop y declined 0492099151623 00 Active 2021 Not Available [facility] 3 18:47:48 Colon cancer screening declined 2219992853449 9 Active 2022 Not Available [facility] 3 18:47:48 Breast cancer screening declined 5287474927927 9103 Active 2022 Not Available [facility] 3 18:47:48 History of iron deficiency 329296938 Active 2022 Not Available [facility] 3 18:47:48 Gluten sensitivit y 093914341 Active 2022 Not Available [facility] 3 18:47:48 Tobacco dependence in remission 018679610 Active 2023 Abdiel Garcia MD Attn: Accounting ,[address] [place], [address] , [facility] 4 13:37:53 Gastroesop hageal reflux disease 046539751 Active 2023 Abdiel Garcia MD Attn: Accounting ,[address] [place], [address] , [facility] 4 13:42:16 Problem Notes None recorded. Procedures Surgical History Date Name Laterality Status Provider Name and Address Organization Details Recorded Time section completed Korin Camacho MA [facility] 01/16/2022 14:10:58 Imaging Results Imaging Date Name Status LastModified by Organiz ation Details LastModified Time 07/26/2022 XR, sternum completed [facility] [address], [place], [address], 01/22/2023 12:30:10 Procedure Notes None recorded. Medical Equipment None Reported. Allergies Allergen ID Allergen Name Allergen Category Reaction Reaction Severity Criticality Documentation Date Start Date Code Code System Note Provider Name and Address Organization Details Recorded Time 18060117 Benadryl medicatio n other Not available low 06/06/202494520 7 RxNorm knoc ks me out for hours Not Available Not Available Not Available 18060118 Sudafed medicatio n tachycard ia Not available Not available 06/06/202411428 2 RxNorm Not Available Not Available Not [...] active EPA approved 01/18/24 thru 01/17/25 case#[id number] -md,rma Not Available Not Available Not Available [...] Updated DateTime 3 163.83 cm 16 kg/m2 01485.5 6 g 14 /min 92 /min 98 % 98 % 116 mm[Hg] 80 mm[Hg] Korin Camacho [place] [facility] 3 12:31:20 Date Recorded Body height Body mass index (BMI) Body weight Heart rate Oxygen saturation Oxygen saturation in Arterial blood by Pulse oximetry Systolic blood pressure Diastolic blood pressure Provider Name and Address Organization Details Last Updated DateTime 3 163.83 cm 16.4 kg/m2 27100.7 4 g 89 /min 97 % 97 % 110 mm[Hg] 70 mm[Hg] Shey Rosario MA [facility] 3 12:26:50 Date Recorded Body height Body mass index (BMI) Body weight Heart rate Oxygen saturation Oxygen saturation in Arterial blood by Pulse oximetry Systolic blood pressure Diastolic blood pressure Provider Name and Address Organization Details Last Updated DateTime 4 163.83 cm 16.2 kg/m2 73311.8 7 g 66 /min 98 % 98 % 120 mm[Hg] 76 mm[Hg] Korin Camacho MA [facility] 4 12:38:09 Date Recorded Body height Body mass index (BMI) Body weight Heart rate Oxygen saturation Oxygen saturation in Arterial blood by Pulse oximetry Respiratory rate Systolic blood pressure Diastolic blood pressure Provider Name and Address Organization Details Last Updated DateTime 4 163.83 cm 15.9 kg/m2 60085.4 g 76 /min 98 % 98 % 16 /min 116 mm[Hg] 68 mm[Hg] Korin Camacho MA [facility] 4 15:47:35 Date Recorded Body height Body mass index (BMI) Body weight Heart rate Oxygen saturation Oxygen saturation in Arterial blood by Pulse oximetry Respiratory rate Systolic blood pressure Diastolic blood pressure Provider Name and Address Organization Details Last Updated DateTime 4 163.83 cm 15.6 kg/m2 81535.2 2 g 62 /min 97 % 97 % 18 /min 110 mm[Hg] 64 mm[Hg] Korin Camacho MA [facility] 4 12:11:24 Social History Question Answer Notes LastModified by Organizat ion Details LastModified Time Tobacco Smoking Status Former Smoker Quit in Feb 2022 Abdiel Garcia MD Attn: Accounting,[address] [place], [address], [facility] 07/20/2023 12:45:12 What Is Your [...] Skin Problems N Anemia Y Heart Attack ([place]) N Anxiety Disorder N Diabetes N Muscle, [...] Recorded Time Tdap 7 completed Not Available [facility] 02/09/2023 18:47:48 COVID-19, mRNA, LNP-S, PF, 30 mcg/0.3 mL dose 1 completed Not Available [facility] 02/09/2023 18:47:48 COVID-19, mRNA, LNP-S, PF, 30 mcg/0.3 mL dose 1 completed Not Available [facility] 02/09/2023 18:47:48 Influenza, MDCK, quadrivalent, preservative 0 completed Not Available [facility] 02/09/2023 18:47:48 Influenza, high-dose, quadrivalent, PF 1 completed Not Available [facility] 02/09/2023 18:47:48 Pneumococcal conjugate PCV20, polysaccharide [id number] conjugate, adjuvant, PF 3 completed Abdiel Garcia MD Attn: Accounting,[address] [place], [address], [facility] 07/20/2023 12:44:44 Past Encounters Encounter ID Performer Location Encounter Start Date Encounter Closed Date Diagnosis/Indication Diagnosis SNOMED-CT Code Diagnosis ICD10 Code Diagnosis Note [id number] Abdiel Garcia MD [facility] (Adult Med) [address] [place] [id number] 01/16/2022 13:37:12 01/17/2022 10:59:55 General examination of patient 212826647 Z00.01 Nicotine dependence 5629 4008 F17.200 She is cutting down and plans to sign up for a Nicotine replacemen t program. Hypothyroidism 66450532 E03.9 Celiac disease 910751381 K90.0 Immunization advised 310 024746 Z71.9 Osteoporosis 22960693 M8 1.0 Disorder o f lipid metabolism 281146568 E78.9 Colonoscopy declined 732 4098112 29215 Z53.20 Mammogram declined 92191 5004 Z53.20 [id number] [facility] [address] [place] [phone] 0 07/24/2022 11:43:16 07/26/2022 15:10:49 Disorder of lipid metabolism 535419675 E78.9 Compliant with her Atorvastat in which was previously prescribed by her cardiologi st. He put me on it years ago Her LDL is suboptimal , I wonder if her uncontroll ed Hypothyroi dism is playing a role. Nicotine dependence 5629 4008 F17.200 She is cutting down and plans to sign up for a Nicotine replacemen t program. 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 Actonel was ineffectiv e and the manufactur er could not guarantee whether or not Prolia was Gluten free. Body mass index less than 16.5 524185627 Z68.1 Colonoscopy declined 606 7918727 77915 Z53.20 Mammogram declined 07016 5004 Z53.20 Underweight 148340659 R6 3.6 Gastroesop hageal reflux disease 572689142 K21.9 History of iron deficiency 467257049 Z86.39 Breast can cer screening declined 2445764359 4925250 Z53.20 Colon canc er screening declined 6959968400 9109 Z53.20 [id number] MD [facility] (Adult Med) [address] [place] [id number] 01/22/2023 12:10:08 01/22/2023 14:19:21 History of iron deficiency 202160139 Z86.39 She continues to refuse a colonoscop yLabs Gluten sensitivity 97481 1003 K90.41 Immunization advised 310 241272 Z71.9 Itching of skin 06897604 0 L29.9 On Vistaril Medication monitoring 39 9334693 Z51.81 Disorder o f lipid metabolism 792015556 E78.9 Labs 12/11/22 LDL 103 OV 07/24/22Comp liant with her Atorvastat in which was previously prescribed by her cardiologi st. He put me on it years ago Her LDL is suboptimal , I wonder if her uncontroll ed Hypothyroi dism is playing a role. Gastroesop hageal reflux disease 344357359 K21.9 [id number] MD [facility] (Adult Med) [address] [place] [id number] 07/20/2023 12:29:10 07/24/2023 12:41:15 Screening for malignant neoplasm of colon 751901214 Z12.11 Gastroesop hageal reflux disease 819522119 K21.9 She deserves an EGD Breast can cer screening declined 1474286509 8220442 Z53.20 SARS-CoV-2 mRNA vaccine declined 1301132029 Z28.21 Influenza vaccination declined 344456287 Z28.21 Tobacco de pendence in remission 970445146 F17.201 General ex amination of patient 022300377 Z00.01 History of iron deficiency 428601636 Z86.39 She continues to refuse a colonoscop y Hypothyroidism 66539654 E03.9 TSH 2160 on 12/18/2022 Disorder o f lipid metabolism 678980768 E78.9 Labs OV 01/22/2023La bs 12/11/22 LDL 103 OV 07/24/22Comp liant with her Atorvastat in which was previously prescribed by her cardiologi st. He put me on it years ago Her LDL is suboptimal , I wonder if her uncontroll ed Hypothyroi dism is playing a role. [id number] Abdiel Garcia MD [facility] (Adult Med) [address] [place] [id number] 11/14/2023 15:26:25 11/15/2023 15:28:57 History of iron deficiency 443239910 Z86.39 She continues to refuse a colonoscop y and a cologuard test Breast can cer screening declined 0838587746 2064498 Z53.20 Hypothyroidism 42893837 E03.9 TSH 2160 on 12/18/2022 Disorder o f lipid metabolism 090811005 E78.9 Labs OV 01/22/2023La bs 12/11/22 LDL 103 OV 07/24/22Comp liant with her Atorvastat in which was previously prescribed by her cardiologi st. He put me on it years ago Her LDL is suboptimal , I wonder if her uncontroll ed Hypothyroi dism is playing a role. Recommenda tion declined 9725367007 62666 Z76.89 [id number] Abdiel Garcia MD [facility] (Adult Med) [address] [place] [address] 06/06/2024 11:57:34 06/10/2024 11:11:20 Body mass index less than 16.5 908343003 Z68.1 Overweight 128556128 E66 .3 Underweight 902680430 R6 3.6 Colonoscopy declined 270 0168210 36296 Z53.20 Colon canc er screening declined 3997970239 9109 Z53.20 Breast can cer screening declined 1838040604 0014930 Z53.20 Mammogram declined 73708 5004 Z53.20 Disorder o f lipid metabolism 029929375 E78.9 Labs OV 01/22/2023La bs 12/11/22 LDL 103 OV 07/24/22Comp liant with her Atorvastat in which was previously prescribed by her cardiologi st. He put me on it years ago Her LDL is suboptimal , I wonder if her uncontroll ed Hypothyroi dism is playing a role. Hypothyroidism 14507149 E03.9 LabsTSH 2.610 on 11/14/2023 and 2.160 on 12/18/2022 History of iron deficiency 313152401 Z86.39 She continues to refuse a colonoscop y and a cologuard test Medication monitoring 39 6283947 Z51.81 Health Concerns Section Related Observation LastModified by Organization Detai ls LastModified Time None Recorded Concern Status LastModified by Organization Details LastModified Time None Recorded Advance Directives Directive None Recorded Payers Encounter Date Sequence Insurance Name Policy Number Policy Saini Covered Member ID Saini Member ID Guarantor Name 07/24/2022 2 [employer] (INDEMNITY) [id number] Rhea Julienor [id number] Rhea Julienor 07/24/2022 1 [place] Rhea Julienor [id number] Rhea Julienor 01/22/2023 2 [employer] (INDEMNITY) [id number] Rhea Julienor [id number] Rhea Julienor 01/22/2023 1 [place] Rhea Julienor [id number] Rhea Julienor 07/20/2023 2 [employer] (INDEMNITY) [id number] Rhea Julienor [id number] Rhea Hugh 07/20/2023 1 [place] Rhea Julienor [id number] Rhea Hugh 11/14/2023 2 [employer] (INDEMNITY) [id number] Rhea Julienor [id number] Rhea Hugh 11/14/2023 1 [place] Rhea Julienor [id number] Rhea Hugh 06/06/2024 2 [employer] (INDEMNITY) [id number] Rhea Julienor [id number] Rhea Julienor 06/06/2024 1 [place] Rhea Julienor [id number] 5 Rhea Reese Notes Date Note Type [...] painful. Abdiel Garcia MD Attn: Accounting[address] [place], [address], [facility] 07/24/2022 13:56:19 01/22/2023 text/html I am good I am......wait till the next time Ms Reese returns, she was told by her specialist that her itching was due to her skin rash from her Gluten sensitivity., hence her need for Hydroxyzine. She is doing well and plans to wait on her booster COVID vaccine. Abdiel Garcia MD Attn: Accounting,[address] [place], [address], [facility] 01/22/2023 12:53:51 07/20/2023 text/html Reflux/GERDRepor fredi bypatient.Symptomshea [...] Abdiel Garcia MD Attn: Accounting,[address] [place], [address], [facility] 07/20/2023 13:42:54 11/14/2023 text/html Medicare Annual Wellness [...] MD Attn: Accounting,[address] , [place], [address], [facility] 11/14/2023 16:13:55 06/06/2024 text/html Medicare [...] better. Abdiel Garcia MD Attn: Accounting[address] [place], [address], [facility] 06/06/2024 13:14:10 OBGyn Episode No OBEpisode recorded.
== END 2024-10-14 10:43 | disposition home or self-care (01) ==
PROVIDERS: PCP Internal Medicine Infectious Disease; Visit Provider Nurse Practitioner Adult Health
DX: S22.080A Wedge compression fracture of T11-T12 vertebra, initial encounter for closed fracture (principal); S32.010A Wedge compression fracture of first lumbar vertebra, initial encounter for closed fracture; S32.020A Wedge compression fracture of second lumbar vertebra, initial encounter for closed fracture; S32.040A Wedge compression fracture of fourth lumbar vertebra, initial encounter for closed fracture; X58.XXXA Exposure to other specified factors, initial encounter
CPT/HCPCS: 72100

== ENCOUNTER 2024-10-18 19:19 | Inpatient (IN) | payer MEDICARE, BC, SELFPAY ==
[2024-10-18] VITALS (8 sets, daily range): BP systolic 107–127; BP diastolic 69–82; PULSE 81–96; RESP 15–20; TEMP 36.2–36.8; O2SAT 96–98
--- NOTE | ~2024-10-18 | CT_ITS ---
CT abdomen pelvis wo con Ordering provider: Rolf Merchant MD History: 74 years Female with . flank pain . Comparison: None. Technique: CT abdomen and pelvis without IV and without oral contrast. Automated exposure control and iterative reconstruction technique were employed. The dose-length product was 166.34 mGy-cm. Findings: VISUALIZED LOWER CHEST: Normal. UPPER ABDOMINAL ORGANS: Liver: Normal. Gallbladder: Normal. Spleen: Very small size with calcification which may be due to previous removal with residual splenul es. Post infarct or trauma also is possible. Stomach/duodenum: Normal. Pancreas: Normal. Adrenals: Normal. Kidneys: Normal. PELVIC ORGANS: The bladder is underfilled with slightly thickened wall. Evaluation for cystitis advis ed. BOWEL AND MESENTERY: Colon: No evidence of diverticulitis. Fecal material is loaded in the colon. The appendix is not demo nstrated. Small Bowel: Normal. No obstruction. Peritoneum/mesentery: No free air or free fluid. No mesenteric lymphadenopathy. RETROPERITONEUM: Mild atheromatous disease of the abdominal aorta. No retroperitoneal lymphadenopat hy. MUSCULOSKELETAL: Superficial soft tissues: The superficial soft tissues are normal. IMPRESSION: 1. No evidence of appendicitis, diverticulitis or intestinal obstruction. 2. Constipation. 3. Slightly thickened wall of the bladder. Evaluation for cystitis advised. CT abdomen pelvis wo con Ordering provider: Rolf Merchant MD History: 74 years Female with . flank pain . Comparison: None. Technique: CT lumbar spine without contrast. Automated exposure control and iterative reconstruction technique were employed. The dose-length product was 166.34 mGy-cm. FINDINGS: VERTEBRAE: Multilevel compression fractures with variable degrees of loss of height are noted involvi ng T11, T12, L1, L2 and L4 which may be acute or chronic. MRI evaluation is advised. DISC SPACES: Well maintained. Facet joint disease seen at the level of L5-S1 bilaterally. T12-L1: No stenosis. L1-L2: No stenosis. L2-L3: No stenosis. L3-L4: No stenosis. Mild diffuse disc bulge. L4-L5: No stenosis. Mild diffuse disc bulge. L5-S1: No stenosis. PARASPINOUS SOFT TISSUES: Mild atheromatous disease of the abdominal aorta. IMPRESSION: Multilevel compression fractures which may be acute or chronic. MRI evaluation is advised. Reviewed, dictated and finalized at location A. IMPRESSION: 1. No evidence of appendicitis, diverticulitis or intestinal obstruction. 2. Constipation. 3. Slightly thickened wall of the bladder. Evaluation for cystitis advised. CT abdomen pelvis wo con Ordering provider: Rolf Merchant MD History: 74 years Female with . flank pain . Comparison: None. Technique: CT lumbar spine without contrast. Automated exposure control and it erative reconstruction technique were employed. The dose-length product was 166 .34 mGy-cm. FINDINGS: VERTEBRAE: Multilevel compression fractures with variable degrees of loss of he ight are noted involving T11, T12, L1, L2 and L4 which may be acute or chronic. MRI evaluation is advised. DISC SPACES: Well maintained. Facet joint disease seen at the level of L5-S1 bilaterally. T12-L1: No stenosis. L1-L2: No stenosis. L2-L3: No stenosis. L3-L4: No stenosis. Mild diffuse disc bulge. L4-L5: No stenosis. Mild diffuse disc bulge. L5-S1: No stenosis. PARASPINOUS SOFT TISSUES: Mild atheromatous disease of the abdominal aorta.
--- NOTE | ~2024-10-18 | MR_ITS ---
EXAMINATION: MR lumbar spine wo con DATE: 10/21/2024 09:53 INDICATION: Establish acuity of lumbar burst fractures. TECHNIQUE: Magnetic resonance imaging (MRI) of the lumbar spine was performed without intravenous con trast. Sequences included sagittal T2-weighted FSE, sagittal T2-weighted FS FSE, sagittal T1-weighted FSE, and axial T2-weighted FSE. COMPARISON: CT dated 08/18/2024 and 08/18/2024 lumbar spine radiographs dated 09/02/2024 and 10/14/2024 FINDINGS: Alignment is normal. There are multiple compression and burst fractures in the lumbar and lower thora cic spine. No interval change in a chronic T11 burst fracture with 40% anterior vertebral body height loss and 1 mm retropulsion at the central superior aspect of the posterior wall. Recent T12 burst fr acture, also with 40% anterior vertebral body height loss and 2 mm retropulsion which occurred in the interval between 10/14/2024 and 10/18/2024. Subacute L1 compression fracture with 20% anterior vertebra l body height loss which occurred between 09/02/2024 and 10/14/2024. Ongoing progression since 08/18/2024 of vertebral body height loss at an L2 burst fracture with 50% central vertebral body height loss an d 2 mm retropulsion. L3 vertebral body height remains normal. Unchanged chronic L4 compression fractu re with 40% central and left anterior vertebral body height loss. To change in chronic 20% posterior vertebral body height loss at L5. There is minimal edema associated with a few of the recent compress ion and burst fractures. There is ballooning of the disc spaces from T10-T11 through L4-L5 resulting from the previous noted compression and burst fractures. The conus medullaris terminates at L1-L2. Th ere is normal signal in the caudal spinal cord. Paravertebral soft tissues are unremarkable. The foll owing disc levels are specifically discussed: T12-L1: The disc does not extend beyond the endplate margin. There is mild bilateral facet joint oste oarthritis. There is no neural foraminal stenosis. There is no central canal stenosis. L1-L2: Disc is mildly bulging, smaller in degree to the mild retropulsion at L2. There is mild bilate ral facet joint osteoarthritis. There is mild bilateral neural foraminal stenosis. There is mild cent ral canal stenosis. L2-L3: Disc is minimally bulging. There is mild bilateral facet joint osteoarthritis. There is minima l bilateral neural foraminal stenosis. There is no central canal stenosis. L3-L4: Disc is minimally bulging. There is hypertrophy of the ligamentum flavum. There is moderate b ilateral facet joint osteoarthritis. There is mild right and minimal left neural foraminal stenosis. There is minimal central canal stenosis. L4-L5: Disc is minimally bulging. There is moderate bilateral facet joint osteoarthritis. There is mi ld bilateral neural foraminal stenosis. There is no central canal stenosis. L5-S1: Disc is bulging with annular fissure. There is moderate right and severe left facet joint oste oarthritis. There is mild right and mild to moderate left neural foraminal stenosis. There is no cent ral canal stenosis. IMPRESSION: 1. Mild lumbar spondylosis with multiple chronic, subacute and very recent and recently progressing c ompression and burst fractures in the lumbar and lower thoracic spine as detailed above. Reviewed, dictated and finalized at location A. IMPRESSION: 1. Mild lumbar spondylosis with multiple chronic, subacute and very recent and recently progressing compression and burst fractures in the lumbar and lower th oracic spine as detailed above.
--- NOTE | ~2024-10-18 | XR_ITS ---
XR abdomen/kub 1V Ordering provider: Stella Rosado PA-C History: . constipation . Comparison: None. FINDINGS: BOWEL: Fecal material is seen in the right side of the colon. Distended colonic loops is seen in the upper abdomen. ORGANOMEGALY: None. SIGNIFICANT PATHOLOGIC CALCIFICATIONS: None. OTHER: No free air is seen under the diaphragm. IMPRESSION: Distended large bowel loops. Follow-up advised. Constipation Reviewed, dictated and finalized at location A.
--- OUTSIDE RECORDS SUMMARY | 2024-10-18 19:23 | XMS_ITS | Data Portability ---
Author Organization [facility] Address [address] [place] [address] Assessment No assessment recorded. Plan of Treatment Reminders Order Date Submit Date Provider Last Modified By Organization Details Last Modified Time Details Appointments Hospital Follow-Up 2024 09:30A Brennen Garcia MD Not available Not available Not available Lab lipid panel, serum 2023 024 PAULIE Pena, [address], [place], [address], 06/07/2024 08:27:00 basic metabolic 1998 panel, serum or plasma 2023 024 PAULIE Pena, [address], [address], [place], [address], 06/07/2024 08:27:01 CBC 2023 024 PAULIE Pena, [address], [place], [address], 06/07/2024 08:27:02 TSH, ultra-sen sitive, serum 2023 024 PAULIE Pena, [address], [place], [address], 11/15/2023 13:12:23 CBC w/ auto diff 2023 024 PAULIE Pena, [address], [place], [address], 07/21/2023 06:26:42 CMP, serum or plasma 2023 024 PAULIE Pena, [address], [place], [address], 07/21/2023 06:26:40 urinalysi s, dipstick 2023 024 PAULIE Pena, [address], [place], [address], 07/21/2023 06:26:41 lipid panel, serum 2023 024 PAULIE Pena, [address], [place], [address], 07/21/2023 06:26:40 noninvasi ve colorecta l cancer DNA + occult blood screening , QL, stool 2023 024 [facility] (Cologuard Orders Only), [address], [address], [place], [address], 11/14/2023 15:41:53 iron + total iron-bind ing capacity (TIBC), serum 2022 023 PAULIE Pena, [address], [place], [address], 01/23/2023 08:21:46 ferritin, serum or plasma 2022 023 PAULIE Pena, [address], [place], [address], 01/23/2023 08:21:47 hepatic function panel, serum 2022 023 PAULIE Pena, [address], [place], [address], 01/23/2023 08:21:45 CBC w/ auto diff 2022 023 TONE[facility], [address], [place], [address], 01/23/2023 08:21:47 lipid panel, serum 2022 023 TONEY [facility], [address], [place], [address], 12/11/2022 19:08:41 Referral gastroent erologist referral - Chronic GERD 2023 024 amber Bal MD, [address] [facility], [facility] [address], [place], [address], 09/25/2023 17:27:26 Procedures None recorded. Surgeries None recorded. Imaging XR, chest, [address] [facility] ([facility] Scheduling), [address] [place], [address], 11/14/2023 15:42:09 XR, sternum - Deformity of the lower part of the sternum, post trauma 2022 023 [facility] ([facility] Scheduling), [address] [place], [address], 07/26/2022 16:43:04 Medication Orders atorvasta tin 10 mg tablet 2023 024 [facility], [address] [place] [address], [address], 06/06/2024 12:34:12 ferrous sulfate 325 mg (65 mg iron) tablet 2023 024 [facility], [address] [place] [address], [address], 06/06/2024 12:34:10 levothyro xine 112 mcg tablet 2023 024 [facility], [address] [place] [address], [address], 06/06/2024 12:34:10 omeprazol e 40 mg capsule,d elayed release 2023 024 [facility], [address] [place] [address], [address], 07/20/2023 13:04:21 ferrous sulfate 325 mg (65 mg iron) tablet 2023 024 [facility], [address] [place] [address], [address], 07/20/2023 12:59:47 ferrous sulfate 325 mg (65 mg iron) tablet 2022 023 [facility], [address] [place] [address], [address], 01/22/2023 12:47:14 omeprazol e 20 mg capsule,d elayed release 2022 023 [facility], [address] [place] [address], [address], 07/20/2023 13:03:16 atorvasta tin 10 mg tablet 2022 023 [facility], [address] [place] [address], [address], 01/22/2023 12:50:48 atorvasta tin 10 mg tablet 2022 023 [facility], [address] [place] [address], [address], 07/24/2022 13:46:33 omeprazol e 40 mg capsule,d elayed release 2022 023 [facility], [address] [place] [address], [address], 12/25/2022 12:13:57 ferrous sulfate 325 mg (65 mg iron) tablet 2022 023 PAULIE [facility], [address] [facility], [place], [address], 07/26/2022 03:32:51 Zithromax Z-Oliver 250 mg tablet 2022 023 oajao [id number], [address] [facility], [place], [address], 01/22/2023 12:36:28 Patient TargetsNo targets recorded. Patient Instructions Encounter Date Encounter Id Patient Instructions Last Modified By Organization Details Last Modified Time 07/24/2022 [id number] gastroesophageal reflux disease (GERD): care instructions oajao [...] above) oajao Not available 07/24/2022 13:54:28 01/22/2023 [id number] Labs Follow up i n 6 months and PRN oajao Not available 01/22/2023 12:40:40 07/20/2023 [id number] gastroesophageal reflux disease (GERD): care instructions oajao Not available 07/20/2023 12:56:09 hypothyroidism: care instructions oajao Not available 07/20/2023 13:01:43 CXR Labs GI Cologuard Omeprazole 40 mg Follow up in 3 months and PRN oajao Not available 07/20/2023 13:03:08 11/14/2023 [id number] Labs Follow up i n 6 months and PRN oajao Not available 11/14/2023 15:58:54 06/06/2024 [id number] A healthy lifest yle: care instructions oajao Not available 06/06/2024 12:25:13 eating healthy foods: care instructions oajao Not available 06/06/2024 12:25:53 Labs Follow up i n 6 months and PRN oajao Not available 06/06/2024 12:37:30 Reason for Referral [employer] 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 Gastroesophageal reflux disease Chronic GERD Chronic GERD Referring Physician: Abdiel Garcia, Internal Medicine, Encounter Date: 07/20/2023 Results Created Date Observation Date Name Description Value Unit Range Abnormal Flag Note LastModifiedBy Organization Detail LastModifiedTime 07/19/1907/19/2024 COLOG UARD cologuard result Cancel led - Order d not applic able Not Available [facility] (Cologuard Orders Only) [address], [place], [address], 07/19/2024 07:52:43 07/24/1907/25/2022 TSH TSH 0.285 uIU/m L 0.450- 4.500 below low normal Not Available [facility] ([facility]) [address] [place], [address], 07/25/2022 08:17:06 07/25/19 23 07/26/2022 TSH TSH 0.389 uIU/m L 0.450- 4.500 below low normal Not Available [facility] ([facility]) [address] [place], [address], 07/26/2022 08:18:34 12/12/19 23 12/11/2022 LIPID PANEL cholesterol, total 159.2 mg/dL 140.0- 200.0 Not Available [facility] [address] [place], [address], 12/11/2022 19:08:40 12/12/19 23 12/11/2022 LIPID PANEL triglyceride s 66 mg/dL <=150 Not Available [facility] Department [address] [place], [address], 12/11/2022 19:08:40 12/12/19 23 12/11/2022 LIPID PANEL HDL cholesterol 42.8 mg/dL 40.0-1 00.0 Not Available [facility] Department [address] [place], [address], 12/11/2022 19:08:40 12/12/19 23 12/11/2022 LIPID PANEL VLDL cholesterol fernando 13.20 mg/dL 5.00-4 0.00 Not Available [facility] Department [address] [place], [address], 12/11/2022 19:08:40 12/12/19 23 12/11/2022 LIPID PANEL LDL chol calc ([facility]) 103.4 mg/dL 0.0-99 .0 above high normal Not Available [facility] Department [address] [place], [address], 12/11/2022 19:08:40 12/19/19 23 12/19/2022 TSH RFX ON ABNOR MAL TO FREE T4 TSH 2.160 uIU/m L 0.450- 4.500 Not Available [facility] ([facility]) [address] [place], [address], 12/19/2022 06:15:13 01/23/20 23 01/23/2023 IRON AND TIBC iron bind.cap.(TI BC) 234 ug/dL 250-45 0 below low normal Not Available [facility] ([facility]) [address] [place], [address], 01/23/2023 08:21:46 01/23/20 23 01/23/2023 IRON AND TIBC UIBC 138 ug/dL 118-36 9 Not Available [facility] ([facility]) [address] [place], [address], 01/23/2023 08:21:46 01/23/20 23 01/23/2023 IRON AND TIBC iron 96 ug/dL 27-139 Not Available [facility] ([facility]) [address] [place], [address], 01/23/2023 08:21:46 01/23/20 23 01/23/2023 IRON AND TIBC iron saturation 41 % 15-55 Not Available [facility] ([facility]) [address] [place], [address], 01/23/2023 08:21:46 01/23/20 23 01/23/2023 CECE TIN ferritin 319 NG/mL 15-150 above high normal Not Available [facility] ([facility]) [address] [facility], [place], [address], 01/23/2023 08:21:47 01/23/20 23 01/23/2023 CBC WITH DIFFE RENTI AL/PL ATELE T WBC 5.9 x10e3 /uL 3.4-10 .8 Not Available [facility] ([facility]) [address] [place], [address], 01/23/2023 08:21:47 01/23/20 23 01/23/2023 CBC WITH DIFFE RENTI AL/PL ATELE T RBC 4.07 x10e6 /uL 3.77-5 .28 Not Available [facility] ([facility]) [address] [place], [address], 01/23/2023 08:21:47 01/23/20 23 01/23/2023 CBC WITH DIFFE RENTI AL/PL ATELE T hemoglobin 13.9 g/dL 11.1-1 5.9 Not Available [facility] ([facility]) [address] [place], [address], 01/23/2023 08:21:47 01/23/20 23 01/23/2023 CBC WITH DIFFE RENTI AL/PL ATELE T hematocrit 39.6 % 34.0-4 6.6 Not Available [facility] ([facility]) [address] [place], [address], 01/23/2023 08:21:47 01/23/20 23 01/23/2023 CBC WITH DIFFE RENTI AL/PL ATELE T MCV 97 fL 79-97 Not Available [facility] ([facility]) [address] [facility], [place], [address], 01/23/2023 08:21:47 01/23/20 23 01/23/2023 CBC WITH DIFFE RENTI AL/PL ATELE T MCH 34.2 pg 26.6-3 3.0 above high normal Not Available [facility] ([facility]) [address] [facility], [place], [address], 01/23/2023 08:21:47 01/23/20 23 01/23/2023 CBC WITH DIFFE RENTI AL/PL ATELE T MCHC 35.1 g/dL 31.5-3 5.7 Not Available [facility] ([facility]) [address] [facility], [place], [address], 01/23/2023 08:21:47 01/23/20 23 01/23/2023 CBC WITH DIFFE RENTI AL/PL ATELE T RDW 12.3 % 11.7-1 5.4 Not Available [facility] ([facility]) [address] [facility], [place], [address], 01/23/2023 08:21:47 01/23/20 23 01/23/2023 CBC WITH DIFFE RENTI AL/PL ATELE T platelets 380 x10e3 /uL 150-45 0 Not Available [facility] ([facility]) [address] [facility], [place], [address], 01/23/2023 08:21:47 01/23/20 23 01/23/2023 CBC WITH DIFFE RENTI AL/PL ATELE T neutrophils 42 % notest ab. Not Available [facility] ([facility]) [address] [facility], [place], [address], 01/23/2023 08:21:47 01/23/20 23 01/23/2023 CBC WITH DIFFE RENTI AL/PL ATELE T lymphs 45 % notest ab. Not Available [facility] ([facility]) [address] [facility], [place], [address], 01/23/2023 08:21:47 01/23/20 23 01/23/2023 CBC WITH DIFFE RENTI AL/PL ATELE T monocytes 11 % notest ab. Not Available [facility] ([facility]) [address] [facility], [place], [address], 01/23/2023 08:21:47 01/23/20 23 01/23/2023 CBC WITH DIFFE RENTI AL/PL ATELE T eos 1 % notest ab. Not Available [facility] ([facility]) [address] [facility], [place], [address], 01/23/2023 08:21:47 01/23/20 23 01/23/2023 CBC WITH DIFFE RENTI AL/PL ATELE T basos 1 % notest ab. Not Available [facility] ([facility]) [address] [facility], [place], [address], 01/23/2023 08:21:47 01/23/20 23 01/23/2023 CBC WITH DIFFE RENTI AL/PL ATELE T neutrophils (absolute) 2.5 x10e3 /uL 1.4-7. 0 Not Available [facility] ([facility]) [address] [facility], [place], [address], 01/23/2023 08:21:47 01/23/20 23 01/23/2023 CBC WITH DIFFE RENTI AL/PL ATELE T lymphs (absolute) 2.7 x10e3 /uL 0.7-3. 1 Not Available [facility] ([facility]) [address] [facility], [place], [address], 01/23/2023 08:21:47 01/23/20 23 01/23/2023 CBC WITH DIFFE RENTI AL/PL ATELE T monocytes(ab solute) 0.6 x10e3 /uL 0.1-0. 9 Not Available [facility] ([facility]) [address] [facility], [place], [address], 01/23/2023 08:21:47 01/23/20 23 01/23/2023 CBC WITH DIFFE RENTI AL/PL ATELE T eos (absolute) 0.1 x10e3 /uL 0.0-0. 4 Not Available [facility] ([facility]) [address] [facility], [place], [address], 01/23/2023 08:21:47 01/23/20 23 01/23/2023 CBC WITH DIFFE RENTI AL/PL ATELE T baso (absolute) 0.1 x10e3 /uL 0.0-0. 2 Not Available [facility] ([facility]) [address] [facility], [place], [address], 01/23/2023 08:21:47 01/23/20 23 01/23/2023 CBC WITH DIFFE RENTI AL/PL ATELE T immature granulocytes 0 % notest ab. Not Available [facility] ([facility]) [address] [facility], [place], [address], 01/23/2023 08:21:47 01/23/20 23 01/23/2023 CBC WITH DIFFE RENTI AL/PL ATELE T immature grans (abs) 0.0 x10e3 /uL 0.0-0. 1 Not Available [facility] ([facility]) [address] [place], [address], 01/23/2023 08:21:47 01/23/20 23 01/23/2023 HEPAT IC FUNCT ION PANEL (7) protein, total 6.6 g/dL 6.0-8. 5 Not Available [facility] ([facility]) [address] [place], [address], 01/23/2023 08:21:45 01/23/20 23 01/23/2023 HEPAT IC FUNCT ION PANEL (7) albumin 4.5 g/dL 3.9-4. 9 Not Available [facility] ([facility]) [address] [place], [address], 01/23/2023 08:21:45 01/23/20 23 01/23/2023 HEPAT IC FUNCT ION PANEL (7) bilirubin, total 0.3 mg/dL 0.0-1. 2 Not Available [facility] ([facility]) [address] [place], [address], 01/23/2023 08:21:45 01/23/20 23 01/23/2023 HEPAT IC FUNCT ION PANEL (7) bilirubin, direct 0.11 mg/dL 0.00-0 .40 Not Available [facility] ([facility]) [address] [place], [address], 01/23/2023 08:21:45 01/23/20 23 01/23/2023 HEPAT IC FUNCT ION PANEL (7) alkaline phosphatase 77 IU/L 44-121 Not Available [facility] ([facility]) [address] [place], [address], 01/23/2023 08:21:45 01/23/20 23 01/23/2023 HEPAT IC FUNCT ION PANEL (7) AST (SGOT) 23 IU/L 0-40 Not Available [facility] ([facility]) [address] [place], [address], 01/23/2023 08:21:45 01/23/20 23 01/23/2023 HEPAT IC FUNCT ION PANEL (7) ALT (SGPT) 21 IU/L 0-32 Not Available [facility] ([facility]) [address] [place], [address], 01/23/2023 08:21:45 07/20/19 24 07/21/2023 LIPID PANEL cholesterol, total 165 mg/dL 100-19 9 Not Available [facility] [address] [place], [address], 07/21/2023 06:26:40 07/20/19 24 07/21/2023 LIPID PANEL triglyceride s 81 mg/dL 0-149 Not Available [facility] Department [address] [place], [address], 07/21/2023 06:26:40 07/20/19 24 07/21/2023 LIPID PANEL HDL cholesterol 47 mg/dL 40-999 Not Available [facility] Department [address] [place], [address], 07/21/2023 06:26:40 07/20/19 24 07/21/2023 LIPID PANEL VLDL cholesterol fernando 16 mg/dL 5-40 Not Available [facility] Department [address] [place], [address], 07/21/2023 06:26:40 07/20/19 24 07/21/2023 LIPID PANEL LDL chol calc (nih) 113 mg/dL 0-99 above high normal Not Available [facility] Department [address] [place], [address], 07/21/2023 06:26:40 07/20/19 24 07/21/2023 COMP. METAB OLIC PANEL (14) glucose 86 mg/dL 70-99 Not Available [facility] Department [address] [place], [address], 07/21/2023 06:26:40 07/20/19 24 07/21/2023 COMP. METAB OLIC PANEL (14) BUN 10 mg/dL 8-27 Not Available [facility] [address] [place], [address], 07/21/2023 06:26:40 07/20/19 24 07/21/2023 COMP. METAB OLIC PANEL (14) creatinine 0.69 mg/dL 0.76-1 .27 below low normal Not Available [facility] Department [address] [place] [address], [address], 07/21/2023 06:26:40 07/20/19 24 07/21/2023 COMP. METAB OLIC PANEL (14) eGFR 93 >=60 Units for eGFR value s are mL/mi n/1.7 3 The eGFR Calcu latio n has not been valid ated for patie nts under the age of 18. If test resul ts are displ ayed for a patie nt under the age of 18, disre karma that value . Not Available [facility] [address] [place] [address], [address], 07/21/2023 06:26:40 07/20/19 24 07/21/2023 COMP. METAB OLIC PANEL (14) BUN/creatini ne ratio 14 10-28 Not Available [facility] Department [address] [place] [address], [address], 07/21/2023 06:26:40 07/20/19 24 07/21/2023 COMP. METAB OLIC PANEL (14) sodium 142 mmol/ L 134-14 4 Not Available [facility] [address] [place] [address], [address], 07/21/2023 06:26:40 07/20/19 24 07/21/2023 COMP. METAB OLIC PANEL (14) potassium 5.5 mmol/ L 3.5-5. 2 above high normal Not Available [facility] [address] [place], [address], 07/21/2023 06:26:40 07/20/19 24 07/21/2023 COMP. METAB OLIC PANEL (14) chloride 104 mmol/ L 96-106 Not Available [facility] [address] [place], [address], 07/21/2023 06:26:40 07/20/19 24 07/21/2023 COMP. METAB OLIC PANEL (14) carbon dioxide, total 26 mmol/ L 20-29 Not Available [facility] [address] [place], [address], 07/21/2023 06:26:40 07/20/19 24 07/21/2023 COMP. METAB OLIC PANEL (14) calcium 10.1 mg/dL 8.7-10 .3 Not Available [facility] [address] [place], [address], 07/21/2023 06:26:40 07/20/19 24 07/21/2023 COMP. METAB OLIC PANEL (14) protein, total 7.2 g/dL 6.0-8. 5 Not Available [facility] [address] [place], [address], 07/21/2023 06:26:40 07/20/19 24 07/21/2023 COMP. METAB OLIC PANEL (14) albumin 4.7 g/dL 3.8-4. 8 Not Available [facility] Department [address] [place], [address], 07/21/2023 06:26:40 07/20/19 24 07/21/2023 COMP. METAB OLIC PANEL (14) globulin, total 2.5 g/dL 1.5-4. 5 Not Available [facility] [address] [place], [address], 07/21/2023 06:26:40 07/20/19 24 07/21/2023 COMP. METAB OLIC PANEL (14) A/G ratio 2.0 1.2-2. 2 Not Available [facility] [address] [place], [address], 07/21/2023 06:26:40 07/20/19 24 07/21/2023 COMP. METAB OLIC PANEL (14) bilirubin, total 0.3 mg/dL 0.0-1. 2 Not Available [facility] [address] [place], [address], 07/21/2023 06:26:40 07/20/19 24 07/21/2023 COMP. METAB OLIC PANEL (14) alkaline phosphatase 81 IU/L 44-121 Not Available [facility] Department [address] [place], [address], 07/21/2023 06:26:40 07/20/19 24 07/21/2023 COMP. METAB OLIC PANEL (14) AST (SGOT) 28 IU/L 0-[address] [facility] Department [address] [place], [address], 07/21/2023 06:26:40 07/20/19 24 07/21/2023 COMP. METAB OLIC PANEL (14) ALT (SGPT) 27 IU/L 0-[address] [facility] Department [address] [place] [address], [address], 07/21/2023 06:26:40 07/20/19 24 07/20/2023 URINA LYSIS , ROUTI NE specific gravity SEE BELOW: 1.005- 1.030 abnormal <=1.0 05 Not Available [facility] Department [address] [place], [address], 07/21/2023 06:26:41 07/20/19 24 07/20/2023 URINA LYSIS , ROUTI NE pH 6.5 5.0-7. 0 Not Available [facility] Department [address] [place], [address], 07/21/2023 06:26:41 07/20/19 24 07/20/2023 URINA LYSIS , ROUTI NE urine-color YELLOW yellow Not Available [facility] Department [address] [place], [address], 07/21/2023 06:26:41 07/20/19 24 07/20/2023 URINA LYSIS , ROUTI NE appearance CLEAR Not Available [facility] Department [address] [place], [address], 07/21/2023 06:26:41 07/20/19 24 07/20/2023 URINA LYSIS , ROUTI NE WBC esterase COMMEN T NEGAT FREDDIE Not Available [facility] Department [address], [place], [address], 07/21/2023 06:26:41 07/20/19 24 07/20/2023 URINA LYSIS , ROUTI NE protein COMMEN T NEGAT FREDDIE Not Available [facility] [address] [place], [address], 07/21/2023 06:26:41 07/20/19 24 07/20/2023 URINA LYSIS , ROUTI NE glucose COMMEN T NEGAT FREDDIE Not Available [facility] Department [address] [place], [address], 07/21/2023 06:26:41 07/20/19 24 07/20/2023 URINA LYSIS , ROUTI NE ketones COMMEN T NEGAT FREDDIE Not Available [facility] [address], [place], [address], 07/21/2023 06:26:41 07/20/19 24 07/20/2023 URINA LYSIS , ROUTI NE occult blood COMMEN T NEGAT FREDDIE Not Available [facility] [address] [place], [address], 07/21/2023 06:26:41 07/20/19 24 07/20/2023 URINA LYSIS , ROUTI NE bilirubin COMMEN T NEGAT FREDDIE Not Available [facility] Department [address] [place], [address], 07/21/2023 06:26:41 07/20/19 24 07/20/2023 URINA LYSIS , ROUTI NE urobilinogen ,semi-qn 0.2 eu/dL 0.2-1. 0 Not Available [facility] [address] [place], [address], 07/21/2023 06:26:41 07/20/19 24 07/20/2023 URINA LYSIS , ROUTI NE nitrite, urine COMMEN T negati ve NEGAT FREDDIE Not Available [facility] [address] [facility], [place], [address], 07/21/2023 06:26:41 07/20/19 24 07/20/2023 CBC WITH DIFFE RENTI AL/PL ATELE T WBC 6.2 x10e3 /uL 3.4-10 .8 Not Available [facility] Department [address] [place], [address], 07/21/2023 06:26:42 07/20/19 24 07/20/2023 CBC WITH DIFFE RENTI AL/PL ATELE T RBC 4.26 x10e6 /uL 3.77-5 .28 Not Available [facility] [address] [facility], [place], [address], 07/21/2023 06:26:42 07/20/19 24 07/20/2023 CBC WITH DIFFE RENTI AL/PL ATELE T hemoglobin 13.9 g/dL 11.1-1 5.9 Not Available [facility] [address] [facility], [place], [address], 07/21/2023 06:26:42 07/20/19 24 07/20/2023 CBC WITH DIFFE RENTI AL/PL ATELE T hematocrit 43.0 % 34.0-4 6.6 Not Available [facility] [address] [place], [address], 07/21/2023 06:26:42 07/20/19 24 07/20/2023 CBC WITH DIFFE RENTI AL/PL ATELE T MCV 101 fL 79-97 above high normal Not Available [facility] [address] [place], [address], 07/21/2023 06:26:42 07/20/19 24 07/20/2023 CBC WITH DIFFE RENTI AL/PL ATELE T MCH 32.6 pg 26.6-3 3.0 Not Available [facility] [address] [place], [address], 07/21/2023 06:26:42 07/20/19 24 07/20/2023 CBC WITH DIFFE RENTI AL/PL ATELE T MCHC 32.3 g/dL 31.5-3 5.7 Not Available [facility] [address] [place], [address], 07/21/2023 06:26:42 07/20/19 24 07/20/2023 CBC WITH DIFFE RENTI AL/PL ATELE T RDW 13.4 % 11.5-1 4.5 Not Available [facility] [address] [place], [address], 07/21/2023 06:26:42 07/20/19 24 07/20/2023 CBC WITH DIFFE RENTI AL/PL ATELE T platelets 450 x10e3 /uL 150-45 0 Not Available [facility] [address] [place], [address], 07/21/2023 06:26:42 07/20/19 24 07/20/2023 CBC WITH DIFFE RENTI AL/PL ATELE T neutrophils 40 % notest b. Not Available [facility] [address] [place], [address], 07/21/2023 06:26:42 07/20/19 24 07/20/2023 CBC WITH DIFFE RENTI AL/PL ATELE T lymphs 47 % notest b. Not Available [facility] [address] [place], [address], 07/21/2023 06:26:42 07/20/19 24 07/20/2023 CBC WITH DIFFE RENTI AL/PL ATELE T monocytes 11 % notest b. Not Available [facility] [address] [facility], [place], [address], 07/21/2023 06:26:42 07/20/19 24 07/20/2023 CBC WITH DIFFE [id number]|2024-10-18 22:34:16|2024-10-18 22:34:16|ED.GENADULT||||"HPI - General Adult General Chief complaint: Back Pain/Injury Stated complaint: back pain-HX of fx discs Time Seen by Provider: 10/18/24 21:09 History of Present Illness HPI narrative: Patient is a 74-year-old female who presents emergency department with chief complaint of low back pain. Patient has prior history of 2 lumbar compression fractures. Patient reports that she has been a little bit more active reports she has had more pain. Patient denies bowel or bladder incontinence denies footdrop denies saddle anesthesia Related Data Home Medications Medication Instructions Recorded Confirmed Last Taken Type acetaminophen 500 mg tablet 500 mg PO Q6H PRN 09/03/24 09/03/24 Unknown History (Tylenol Extra Strength) omeprazole 40 mg capsule,delayed 40 mg PO DAILY 09/03/24 09/03/24 Unknown History release Allergies Allergy/AdvReac Type Severity Reaction Status Date / Time No Known Allergies Allergy Verified 10/18/24 19:45 Review of Systems Review of Systems: A 10 system review of systems was completed on the patient and is negative except for what is stated in the HPI. Nursing and ancillary documentation was reviewed. [facility] Past Medical History Medical History Thyroid disorder Osteoporosis GERD (gastroesophageal reflux disease) Anemia Family History Family History Mother Hypertension Sibling Hypertension Social History Social History Smoking status: Former smoker Tobacco type: cigarettes Alcohol intake: current Alcohol use details: beer rarely Substance use: never Substance use type: does not use Do You Feel Safe in your Home?: Yes Lack of Transportation: No Lack of Food: Never True Current Housing: I Have Housing Concerned About Future Housing: No Difficulty Paying Gas/Electric Bills: No Difficulty Paying for Meds: No Currently Unemployed: No Education: High School Diploma/GED Difficulty w/ Childcare or Family Care: No Exam Narrative: GENERAL: Well-appearing, well-nourished, and in no acute distress. HEAD: Normocephalic, atraumatic. EYES: PERRLA and EOMI. ENT: Nares clear, no rhinorrhea or epistaxis. Mucous membranes moist. NECK: Supple. CHEST: Clear to auscultation. No respiratory distress. HEART: Regular rate and rhythm. No murmur heard. Normal peripheral pulses. ABDOMEN: Soft, nontender, nondistended, normal active bowel sounds. EXTREMITIES: Normal range of motion. No edema. SKIN: Warm, dry, no rash. NEURO: No focal deficits. Alert and oriented x3. PSYCH: Normal mood and affect. Course Vital Signs Vital signs: Vital Signs Temperature 36.2 C L 10/18/24 19:23 Pulse Rate 96 10/18/24 19:23 Respiratory Rate 15 10/18/24 19:23 Blood Pressure 119/72 10/18/24 19:23 Pulse Oximetry 96 10/18/24 19:23 Oxygen Delivery Room Air 10/18/24 19:23 Temperature 36.8 C 10/18/24 19:44 Pulse Rate 81 10/18/24 21:30 Respiratory Rate 16 10/18/24 21:30 Blood Pressure 121/69 10/18/24 21:30 Pulse Oximetry 97 10/18/24 21:30 Oxygen Delivery Room Air 10/18/24 19:23 Medical Decision Making [facility] Narrative Medical decision making narrative: CT scan of the abdomen pelvis showed no acute intra-abdominal pathology The lumbar region showed compression fractures present the T12-L1 L2 and L4 patient's pain was improved with a dose of [place] in the emergency department the patient will be given a prescription for [place] for the next several days should follow-up with her spine surgeon Initial plan was to discharge the patient home patient is still having significant pain due to this the patient will be admitted for observation pain control and possible place Vital Signs Vital Signs: Vital Signs Temperature 36.2 C L 10/18/24 19:23 Pulse Rate 96 10/18/24 19:23 Respiratory Rate 15 10/18/24 19:23 Blood Pressure 119/72 10/18/24 19:23 Pulse Oximetry 96 10/18/24 19:23 Oxygen Delivery Room Air 10/18/24 19:23 Temperature 36.8 C 10/18/24 19:44 Pulse Rate 81 10/18/24 21:30 Respiratory Rate 16 10/18/24 21:30 Blood Pressure 121/69 10/18/24 21:30 Pulse Oximetry 97 10/18/24 21:30 Oxygen Delivery Room Air 10/18/24 19:23 Lab Data 10/18/24 21:35 10/18/24 21:35 Labs: Lab Results 10/18/24 Range/Units 21:35 WBC 8.3 (4.5-10.0) K/mm3 RBC 3.90 L (4.2-5.4) M/mm3 Hgb 12.3 (12.0-15.0) g/dL Hct 37.7 (37.0-47.0) % MCV 96.7 (80-100) fl MCH 31.5 (26-34) pg MCHC 32.6 (32-36) g/dl RDW 14.4 (11.5-14.5) % Plt Count 406 H (150-375) k/mm3 MPV 9.8 (7.4-10.4) fl Immature Gran % (Auto) 0.4 (0-0.5) % Neut % (Auto) 67.8 (45.5-73.1) % Lymph % (Auto) 24.5 (18.3-44.2) % [place] % (Auto) 6.4 (2.6-8.5) % Eos % (Auto) 0.4 (0-4.4) % Baso % (Auto) 0.5 (0.2-1.2) % Lymph # (Auto) 2.04 (0.9-3.2) K/mm3 [place] # (Auto) 0.5 (0.1-0.6) K/mm3 Eos # (Auto) 0.0 (0-0.3) K/mm3 Baso # (Auto) 0.0 (0.0-0.1) K/mm3 Abs Immat Gran (auto) 0.03 (0.00-0.031) K/mm3 Absolute Neuts (auto) 5.7 (1.3-6.7) K/mm3 Absolute Nucleated RBC 0.000 (0.0-0.012) K/mm3 Nucleated RBC % 0.0 (0.0-0.2) % Sodium 134 L (137-145) mmol/L Potassium 3.9 (3.4-5.0) mmol/L Chloride 100 (98-107) mmol/L Carbon Dioxide 26 (22-30) mmol/L Anion Gap 8 (4-12) mmol/L BUN 14 (7-17) mg/dL Creatinine 0.66 L (0.7-1.0) mg/dL Estim Creat Clear Calc 41 ml/min Estimated GFR > 60 (59 - ) Glucose 99 (65-110) mg/dL Calcium 8.7 (8.4-10.2) mg/dL Total Bilirubin 0.3 (0.2-1.3) mg/dL AST 38 H (14-36) U/L ALT 35 (6-35) U/L Alkaline Phosphatase 98 (38-126) U/L Total Protein 7.0 (6.3-8.2) g/dL Albumin 3.8 (3.5-5.1) g/dL Urine Color Yellow (Yellow) Urine Appearance Clear (Clear) Urine pH 5.5 (5.0-9.0) Ur Specific [place] 1.017 (1.001-1.035) Urine Protein Negative (Negative) mg/dL Urine Glucose (UA) Negative (Negative) mg/dL Urine Ketones Negative (Negative) mg/dL Ur Blood (Man) Negative (Negative) Urine Nitrate Negative (Negative) Urine Bilirubin Negative (Negative) Urine Urobilinogen 0.2 (<2.0) mg/dL Leukocyte Esterase Rfl Negative (Negative) BRISEYDA/UL Discharge Plan Discharge Clinical Impression: Lumbar compression fracture Qualifiers: Encounter type: initial encounter Lumbar vertebra fracture level: L4 Qualified Code(s): S32.040A - Wedge compression fracture of fourth lumbar vertebra, initial encounter for closed fracture Patient Disposition: Still a Patient Condition: Stable Instructions: Vertebral Compression Fracture (ED), Acute Low Back Pain (ED) Patient Language: Citizen Of [place] Prescriptions: New hydrocodone-acetaminophen 5-325 mg tablet 1 tablet PO Q6H PRN (Reason: pain) 3 Days Qty: 12 0RF No Action omeprazole 40 mg capsule,delayed release(DR/EC) 40 mg PO DAILY acetaminophen [Tylenol Extra Strength] 500 mg tablet 500 mg PO Q6H PRN Follow-up/Referrals: Radha,Rashmi Meadows [Primary Care Provider] - Time of Disposition: 00:44"
--- OUTSIDE RECORDS SUMMARY | 2024-10-18 19:23 | XMS_ITS | Continuity of Care Document ---
Author Organization [facility] Address [address] [place] [address] [address] [place] [address] Phone Care Team Providers Care Padder Name Role Phone Steff Sow Unavailable Unavailable Procedures Procedure Date Eye Exam Established Pt Advance Directives Directive Yes / No Effective Date File Name No Information Encounters Encounter Description Practice Location Reason(s) For Visit Diagnoses Date Provider Providers Copied on Encounter [facility], [address] [place] [address] [address], [place], [place], [id number], [place] tel:[phone] [facility] No Information [address] [facility] , [address], [place], [address], [place]. tel:[phone] Family History Family Member Type Diagnosis Age At Onset No Information Payers Payer name Insurance type Covered libertarian ID Authoriza tion(s) No Information Social History [...]
--- OUTSIDE RECORDS SUMMARY | 2024-10-18 21:17 | XMS_ITS | Continuity of Care Document ---
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 [facility] , [address], [place], [address], [place]. tel:[phone] Family History Family Member Type Diagnosis Age At Onset No Information Payers Payer name Insurance type Covered constitution party ID Authoriza tion(s) No Information Social History [...]
[2024-10-18] MEDS: HYDROcodone/acetaminophen (*CRX) 5-325 MG TABLET 1 TAB PO (21:30)
[2024-10-18 21:46] LABS: Add Urine Microscopic? NO; Appearance Urine Clear (Clear); Bilirubin Urine Negative (Negative); Blood Urine Negative (Negative); Color Urine Yellow (Yellow); Glucose Urine UA Negative (Negative); Ketones Urine Negative (Negative); Leukocyte Esterase Ur Negative LEU/UL (Negative); Nitrate Urine Negative (Negative); Protein Urine Negative (Negative); Specific Grav Ur 1.017 (1.001-1.035); Urobilinogen Urine 0.2 mg/dL (<2.0); pH Urine 5.5 (5.0-9.0)
[2024-10-18 21:49] LABS: Basophils Percent Auto 0.5 % (0.2-1.2); Eosinophils Percent Auto 0.4 % (0-4.4); Hematocrit 37.7 % (37.0-47.0); Hemoglobin 12.3 g/dL (12.0-15.0); Immature Granulocyte Absolute 0.03 K/mm3 (0.00-0.031); Immature Granulocyte Percent A 0.4 % (0-0.5); Lymphocytes Absolute Auto 2.04 K/mm3 (0.9-3.2); Lymphocytes Percent Auto 24.5 % (18.3-44.2); Mean Corpuscular HGB Conc 32.6 g/dl (32-36); Mean Corpuscular Hemoglobin 31.5 pg (26-34); Mean Corpuscular Volume 96.7 fl (80-100); Mean Platelet Volume 9.8 fl (7.4-10.4); Monocytes Absolute Auto 0.5 K/mm3 (0.1-0.6); Monocytes Percent Auto 6.4 % (2.6-8.5); Neutrophils Absolute Auto 5.7 K/mm3 (1.3-6.7); Neutrophils Percent Auto 67.8 % (45.5-73.1); Platelet Count Result 406 k/mm3 (150-375); Red Cell Distribution Width 14.4 % (11.5-14.5); White Blood Count 8.3 K/mm3 (4.5-10.0)
[2024-10-18 21:54] LABS: Alanine Aminotransferase 35 U/L (6-35); Albumin Level 3.8 g/dL (3.5-5.1); Alkaline Phosphatase 98 U/L (38-126); Anion Gap 8 mmol/L (4-12); Aspartate Amino Transferase 38 U/L (14-36); Bilirubin,Total 0.3 mg/dL (0.2-1.3); Blood Urea Nitrogen 14 mg/dL (7-17); Calcium 8.7 mg/dL (8.4-10.2); Carbon Dioxide 26 mmol/L (22-30); Chloride 100 mmol/L (98-107); Estimated CRCL calculation 41 ml/min; Estimated Glomerular Filt Rate > 60; Glucose 99 mg/dL (65-110); Potassium 3.9 mmol/L (3.4-5.0); Sodium 134 mmol/L (137-145)
--- NOTE | 2024-10-18 22:34 | ED_ITS ---
HPI - General Adult General Chief complaint: Back Pain/Injury Stated complaint: back pain-HX of fx discs Time Seen by Provider: 10/18/24 21:09 History of Present Illness HPI narrative: Patient is a 74-year-old female who presents emergency department with chief complaint of low back pain. Patient has prior history of 2 lumbar compression fractures. Patient reports that she has been a little bit more active reports she has had more pain. Patient denies bowel or bladder incontinence denies footdrop denies saddle anesthesia Related Data Home Medications Medication Instructions Recorded Confirmed Last Taken Type acetaminophen 500 mg tablet 500 mg PO Q6H PRN 09/03/24 09/03/24 Unknown History (Tylenol Extra Strength) omeprazole 40 mg capsule,delayed 40 mg PO DAILY 09/03/24 09/03/24 Unknown History release Allergies Allergy/AdvReac Type Severity Reaction Status Date / Time No Known Allergies Allergy Verified 10/18/24 19:45 Review of Systems 2 Review of Systems: A 10 system review of systems was completed on the patient and is negative except for what is stated in the HPI. Nursing and ancillary documentation was reviewed. [facility] Past Medical History Medical History Thyroid disorder Osteoporosis GERD (gastroesophageal reflux disease) Anemia Family History Family History Mother Hypertension Sibling Hypertension Social History Social History Smoking status: Former smoker Tobacco type: cigarettes Alcohol intake: current Alcohol use details: beer rarely Substance use: never Substance use type: does not use Do You Feel Safe in your Home?: Yes Lack of Transportation: No Lack of Food: Never True Current Housing: I Have Housing Concerned About Future Housing: No Difficulty Paying Gas/Electric Bills: No Difficulty Paying for Meds: No Currently Unemployed: No Education: High School Diploma/GED Difficulty w/ Childcare or Family Care: No Exam 2 Narrative: GENERAL: Well-appearing, well-nourished, and in no acute distress. HEAD: Normocephalic, atraumatic. EYES: PERRLA and EOMI. ENT: Nares clear, no rhinorrhea or epistaxis. Mucous membranes moist. NECK: Supple. CHEST: Clear to auscultation. No respiratory distress. HEART: Regular rate and rhythm. No murmur heard. Normal peripheral pulses. ABDOMEN: Soft, nontender, nondistended, normal active bowel sounds. EXTREMITIES: Normal range of motion. No edema. SKIN: Warm, dry, no rash. NEURO: No focal deficits. Alert and oriented x3. PSYCH: Normal mood and affect. Course Vital Signs Vital signs: Vital Signs Temperature 36.2 C L 10/18/24 19:23 Pulse Rate 96 10/18/24 19:23 Respiratory Rate 15 10/18/24 19:23 Blood Pressure 119/72 10/18/24 19:23 Pulse Oximetry 96 10/18/24 19:23 Oxygen Delivery Room Air 10/18/24 19:23 Temperature 36.8 C 10/18/24 19:44 Pulse Rate 81 10/18/24 21:30 Respiratory Rate 16 10/18/24 21:30 Blood Pressure 121/69 10/18/24 21:30 Pulse Oximetry 97 10/18/24 21:30 Oxygen Delivery Room Air 10/18/24 19:23 Medical Decision Making MDM Narrative Medical decision making narrative: CT scan of the abdomen pelvis showed no acute intra-abdominal pathology The lumbar region showed compression fractures present the T12-L1 L2 and L4 patient's pain was improved with a dose of [place] in the emergency department the patient will be given a prescription for [place] for the next several days should follow-up with her spine surgeon Initial plan was to discharge the patient home patient is still having significant pain due to this the patient will be admitted for observation pain control and possible place Vital Signs Vital Signs: Vital Signs Temperature 36.2 C L 10/18/24 19:23 Pulse Rate 96 10/18/24 19:23 Respiratory Rate 15 10/18/24 19:23 Blood Pressure 119/72 10/18/24 19:23 Pulse Oximetry 96 10/18/24 19:23 Oxygen Delivery Room Air 10/18/24 19:23 Temperature 36.8 C 10/18/24 19:44 Pulse Rate 81 10/18/24 21:30 Respiratory Rate 16 10/18/24 21:30 Blood Pressure 121/69 10/18/24 21:30 Pulse Oximetry 97 10/18/24 21:30 Oxygen Delivery Room Air 10/18/24 19:23 Lab Data 10/18/24 21:35 10/18/24 21:35 Labs: Lab Results 10/18/24 Range/Units 21:35 WBC 8.3 (4.5-10.0) K/mm3 RBC 3.90 L (4.2-5.4) M/mm3 Hgb 12.3 (12.0-15.0) g/dL Hct 37.7 (37.0-47.0) % MCV 96.7 (80-100) fl MCH 31.5 (26-34) pg MCHC 32.6 (32-36) g/dl RDW 14.4 (11.5-14.5) % Plt Count 406 H (150-375) k/mm3 MPV 9.8 (7.4-10.4) fl Immature Gran % (Auto) 0.4 (0-0.5) % Neut % (Auto) 67.8 (45.5-73.1) % Lymph % (Auto) 24.5 (18.3-44.2) % [place] % (Auto) 6.4 (2.6-8.5) % Eos % (Auto) 0.4 (0-4.4) % Baso % (Auto) 0.5 (0.2-1.2) % Lymph # (Auto) 2.04 (0.9-3.2) K/mm3 [place] # (Auto) 0.5 (0.1-0.6) K/mm3 Eos # (Auto) 0.0 (0-0.3) K/mm3 Baso # (Auto) 0.0 (0.0-0.1) K/mm3 Abs Immat Gran (auto) 0.03 (0.00-0.031) K/mm3 Absolute Neuts (auto) 5.7 (1.3-6.7) K/mm3 Absolute Nucleated RBC 0.000 (0.0-0.012) K/mm3 Nucleated RBC % 0.0 (0.0-0.2) % Sodium 134 L (137-145) mmol/L Potassium 3.9 (3.4-5.0) mmol/L Chloride 100 (98-107) mmol/L Carbon Dioxide 26 (22-30) mmol/L Anion Gap 8 (4-12) mmol/L BUN 14 (7-17) mg/dL Creatinine 0.66 L (0.7-1.0) mg/dL Estim Creat Clear Calc 41 ml/min Estimated GFR > 60 (59 - ) Glucose 99 (65-110) mg/dL Calcium 8.7 (8.4-10.2) mg/dL Total Bilirubin 0.3 (0.2-1.3) mg/dL AST 38 H (14-36) U/L ALT 35 (6-35) U/L Alkaline Phosphatase 98 (38-126) U/L Total Protein 7.0 (6.3-8.2) g/dL Albumin 3.8 (3.5-5.1) g/dL Urine Color Yellow (Yellow) Urine Appearance Clear (Clear) Urine pH 5.5 (5.0-9.0) Ur Specific [place] 1.017 (1.001-1.035) Urine Protein Negative (Negative) mg/dL Urine Glucose (UA) Negative (Negative) mg/dL Urine Ketones Negative (Negative) mg/dL Ur Blood (Man) Negative (Negative) Urine Nitrate Negative (Negative) Urine Bilirubin Negative (Negative) Urine Urobilinogen 0.2 (<2.0) mg/dL Leukocyte Esterase Rfl Negative (Negative) BRISYEDA/UL Discharge Plan Discharge Clinical Impression: Lumbar compression fracture Qualifiers: Encounter type: initial encounter Lumbar vertebra fracture level: L4 Qualified Code(s): S32.040A - Wedge compression fracture of fourth lumbar vertebra, initial encounter for closed fracture Patient Disposition: Still a Patient Condition: Stable Instructions: Vertebral Compression Fracture (ED), Acute Low Back Pain (ED) Patient Language: [place] Prescriptions: New hydrocodone-acetaminophen 5-325 mg tablet 1 tablet PO Q6H PRN (Reason: pain) 3 Days Qty: 12 0RF No Action omeprazole 40 mg capsule,delayed release(DR/EC) 40 mg PO DAILY acetaminophen [Tylenol Extra Strength] 500 mg tablet 500 mg PO Q6H PRN Follow-up/Referrals: Radha,Rashmi Meadows [Primary Care Provider] - Time of Disposition: 00:44
[2024-10-19] MEDS: HYDROcodone/acetaminophen (*CRX) 5-325 MG TABLET 1 TAB PO ×5 (00:55→23:23)
--- NOTE | 2024-10-19 02:05 | PM.IMHP ---
H&P: HPI History of Present Illness Date/Time: 10/19/24 02:05 Chief Complaint: Back pain. Narrative: This is a very pleasant 74-year-old female with history of lumbar compression fractures, osteoporosis, gastroesophageal reflux disease, and hyperlipidemia who presented to the emergency department via EMS from home for evaluation of back pain. She began experiencing back pain in late April/early May 2024 around the time she had an upper respiratory tract infection with a severe and lingering cough however she remembers picking up a heavy tote bag a week or so before that which may have caused her some back pain as well. Unfortunately it has persisted and worsened in the last couple of months. Early last month she was found to have L2 and L4 compression fractures for which she was seen by neurosurgery and they recommended non operative management and an LSO brace. Acetaminophen and ibuprofen have not provided longstanding relief. The pain is described as severe and is mainly throughout the mid to lower back but occasionally radiates into both hips. She denies falls, trauma, saddle anesthesia, urinary retention, bowel incontinence, paresthesias, and footdrop. She also denies fever, chills, sweats, chest and pleuritic pain, nausea, vomiting, diarrhea (in fact she typically has constipation), and dysuria. In the ED: Vital signs were stable on arrival. Labs were pretty unremarkable. CT showed multilevel compressive deformities at T12, L1, L2, and L4. The compression fracture deformities at T12, L1, and L2 are considered age indeterminate. She received morphine with some improvement her pain however she is still unable to ambulate and she is being admitted in this setting. Review of Systems Review of Systems: 12 systems were reviewed and are negative except for as per HPI. [facility] Past Medical History Medical History (Updated 10/19/24 @ 02:53 by Jami Hansen PA-C) Hypothyroidism Gastroesophageal reflux disease Osteoporosis Anemia Family History Family History Mother Hypertension Sibling Hypertension Social History Social History (Updated 10/19/24 @ 02:47 by Jami Hansen PA-C) Social History: Surrogate medical decision maker: Yessi Martinez, daughter. Code status: Full code. Smoking status: Former smoker Tobacco type: cigarettes Alcohol intake: current Alcohol use details: Rare beer on occasion. Substance use: never Substance use type: does not use Do You Feel Safe in your Home?: Yes Lack of Transportation: No Lack of Food: Never True Current Housing: I Have Housing Concerned About Future Housing: No Difficulty Paying Gas/Electric Bills: No Difficulty Paying for Meds: No Currently Unemployed: No Education: High School Diploma/GED Difficulty w/ Childcare or Family Care: No Meds Home Medications and Allergies Home Medications Medication Instructions Recorded Confirmed Type acetaminophen 500 mg tablet 500 mg PO Q6H PRN 09/03/24 09/03/24 History (Tylenol Extra Strength) omeprazole 40 mg capsule,delayed 40 mg PO DAILY 09/03/24 09/03/24 History release hydrocodone 5 mg-acetaminophen 325 1 tablet PO Q6H PRN pain 3 days 10/19/24 Rx mg tablet #12 tabs Allergies Allergy/AdvReac Type Severity Reaction Status Date / Time No Known Allergies Allergy Verified 10/18/24 19:45 Vital Signs Vital Signs - 24 hr 10/18/24 19:23 10/18/24 19:44 10/18/24 19:46 Temperature 97.1 F L 98.2 F Pulse Rate 96 90 Respiratory Rate 15 16 Blood Pressure 119/72 110/70 Pulse Oximetry 96 98 Oxygen Delivery Room Air 10/18/24 20:30 10/18/24 20:46 10/18/24 21:00 Temperature Pulse Rate 86 Respiratory Rate 20 18 Blood Pressure 107/71 127/82 Pulse Oximetry 98 97 96 Oxygen Delivery 10/18/24 21:25 10/18/24 21:30 Temperature Pulse Rate 81 Respiratory Rate 16 Blood Pressure 121/69 Pulse Oximetry 98 97 Oxygen Delivery Exam Narrative: General: Thin, frail elderly female sitting up in bed. She severe pain with movement. Weight: 39 kg. BMI: 14.8. HEENT: PERRL, EOMI. Sclera anicteric. Oral mucosa moist. Neck: Supple. Respiratory: Lungs are clear to auscultation bilaterally. Cardiovascular: Regular rate and rhythm with S1-S2. Gastrointestinal: Abdomen is soft, nontender, and nondistended with positive bowel sounds. Skin: Warm and dry. No rash or lesions on limited exam. Extremities: No cyanosis, clubbing, or edema. Radial and pedal pulses intact. Spine: No significant midline vertebral tenderness. Neurological: Alert. Cranial nerves 2-12 are grossly intact. No gross focal deficits to casual conversation. Psychiatric: Pleasant and cooperative with normal mood and affect. Judgment and insight intact. H&P: Results Labs Labs: Short CBC 10/18/24 Range/Units 21:35 WBC 8.3 (4.5-10.0) K/mm3 Hgb 12.3 (12.0-15.0) g/dL Hct 37.7 (37.0-47.0) % Plt Count 406 H (150-375) k/mm3 BMP 10/18/24 21:35 Sodium 134 L Potassium 3.9 Chloride 100 Carbon Dioxide 26 BUN 14 Creatinine 0.66 L Glucose 99 Calcium 8.7 Liver Function 10/18/24 Range/Units 21:35 Total Bilirubin 0.3 (0.2-1.3) mg/dL AST 38 H (14-36) U/L ALT 35 (6-35) U/L Alkaline Phosphatase 98 (38-126) U/L Albumin 3.8 (3.5-5.1) g/dL Urine 10/18/24 Range/Units 21:35 Urine Color Yellow (Yellow) Urine Appearance Clear (Clear) Urine pH 5.5 (5.0-9.0) Ur Specific [place] 1.017 (1.001-1.035) Urine Protein Negative (Negative) mg/dL Urine Glucose (UA) Negative (Negative) mg/dL Assessment and Plan Assessment and plan (1) Lumbar compression fracture: Qualifiers: Encounter type: initial encounter Lumbar vertebra fracture level: L4 Qualified Code(s): S32.040A - Wedge compression fracture of fourth lumbar vertebra, initial encounter for closed fracture Code(s): S32.000A - Wedge compression fracture of unspecified lumbar vertebra, initial encounter for closed fracture Status: Acute (2) Thoracic compression fracture: Code(s): S22.000A - Wedge compression fracture of unspecified thoracic vertebra, initial encounter for closed fracture Status: Acute (3) Osteoporosis: Code(s): M81.0 - Age-related osteoporosis without current pathological fracture Status: Acute (4) Intractable back pain: Code(s): M54.9 - Dorsalgia, unspecified Status: Acute (5) Hypothyroidism: Code(s): E03.9 - Hypothyroidism, unspecified Status: Acute (6) Gastroesophageal reflux disease: Code(s): K21.9 - Gastro-esophageal reflux disease without esophagitis Status: Acute Plan The patient presented to the emergency department via EMS for evaluation of worsening, nontraumatic intractable back as detailed in HPI. Labs, imaging, EKG, and all reports were personally reviewed. CT scan showed thoracic and lumbar compression fractures, some of which appear to be subacute. She saw Neurosurgery in early August and has been wearing an LSO brace and taking ibuprofen and acetaminophen without much improvement. She is being admitted in this setting for pain control and neurosurgery re-evaluation. Her vital signs were reviewed and are stable. Chronic medical conditions including gastroesophageal reflux disease and hypothyroidism are controlled on home medication. She looks constipated on imaging and a bowel regimen has been started. We discussed the need to limit narcotics; she wishes to try Flexeril which she has taken at home. Findings and treatment plan were discussed with the patient. Questions were solicited and answered to satisfaction. The patient's medical management will be taken over by the hospitalist team in a.m. Quality VTE Prophylaxis VTE prophylaxis: pharmacologic ordered The patient has been admitted under observation status. Hospitalist [facility] Advance Care Plan I have confirmed that the patient's Advanced Care Plan is present, code status is documented, or surrogate decision maker is listed in patient medical record.: Yes Medication Reconciliation I have utilized all available resources to obtain, update and review the patients current medications (includes all prescriptions, OTC, herbals, cannabis, and nutritional supplements).: Yes
[2024-10-19 03:17] VITALS: BMI 15.0
[2024-10-19] MEDS: CYCLOBENZAPRINE HCL 5 MG TABLET PO ×3 (03:22→23:23)
[2024-10-19 03:26] VITALS: BP 127/69; PULSE 64; RESP 16; TEMP 36.3; O2SAT 97
[2024-10-19] MEDS: LEVOTHYROXINE SODIUM 112 MCG TABLET PO (05:19)
[2024-10-19 06:00] VITALS: BP 111/59; PULSE 65; RESP 12; TEMP 36.7; O2SAT 95
[2024-10-19] MEDS: polyethylene glycoL 3350 17 GM POWD.PACK PO (08:40)
[2024-10-19] MEDS: PANTOPRAZOLE 40 MG TABLET PO ×2 (08:50→16:59)
[2024-10-19] MEDS: DOCUSATE SODIUM 100 MG CAPSULE PO ×2 (08:50→20:07)
[2024-10-19] MEDS: ARTIFICIAL TEARS OPHTH SOLN 15 ML BOTTLE 1 DROP EACH EYE (08:55)
[2024-10-19] MEDS: ENOXAPARIN 40 MG/0.4 ML SYRINGE SUB-Q (08:57)
--- NOTE | 2024-10-19 12:30 | PM.IMPN ---
Progress Note: A&P Assessment and Plan (1) Lumbar compression fracture: Qualifiers: Encounter type: initial encounter Lumbar vertebra fracture level: L4 Qualified Code(s): S32.040A - Wedge compression fracture of fourth lumbar vertebra, initial encounter for closed fracture Code(s): S32.000A - Wedge compression fracture of unspecified lumbar vertebra, initial encounter for closed fracture Status: Acute (2) Thoracic compression fracture: Code(s): S22.000A - Wedge compression fracture of unspecified thoracic vertebra, initial encounter for closed fracture Status: Acute (3) Osteoporosis: Code(s): M81.0 - Age-related osteoporosis without current pathological fracture Status: Acute (4) Intractable back pain: Code(s): M54.9 - Dorsalgia, unspecified Status: Acute (5) Hypothyroidism: Code(s): E03.9 - Hypothyroidism, unspecified Status: Acute (6) Gastroesophageal reflux disease: Code(s): K21.9 - Gastro-esophageal reflux disease without esophagitis Status: Acute Plan Pt is admitted for evaluation of worsening, nontraumatic intractable back pain CT scan showed thoracic and lumbar compression fractures, some of which appear to be subacute. - she is following up with Neurosurgery [facility] [place] in early August and has been wearing an LSO brace and taking ibuprofen and acetaminophen without much improvement - She is being admitted in this setting for pain control and neurosurgery re-evaluation. Chronic medical conditions including gastroesophageal reflux disease and hypothyroidism are controlled on home medication- will continue - imaging report revealed constipation- bowel regimen has been started. Time Spent With Patient Time with patient: 25 - 35 minutes Subjective Date/time seen: 10/19/24 12:30 Interval history: 74-year-old female with PMH/of lumbar compression fractures, osteoporosis, gastroesophageal reflux disease, and hyperlipidemia who admitted for evaluation of back pain. She began experiencing back pain in late April/early May 2024 around the time she had an upper respiratory tract infection with a severe and lingering cough however she remembers picking up a heavy tote bag a week or so before that which may have caused her some back pain as well. Unfortunately it has persisted and worsened in the last couple of months. Early last month she was found to have L2 and L4 compression fractures for which she was seen by neurosurgery and they recommended non operative management and an LSO brace. Acetaminophen and ibuprofen have not provided longstanding relief. The pain is described as severe and is mainly throughout the mid to lower back but occasionally radiates into both hips. She denies falls, trauma, saddle anesthesia, urinary retention, bowel incontinence, paresthesias, and footdrop. She also denies fever, chills, sweats, chest and pleuritic pain, nausea, vomiting, diarrhea (in fact she typically has constipation), and dysuria. .... Labs were pretty unremarkable. CT showed multilevel compressive deformities at T12, L1, L2, and L4. The compression fracture deformities at T12, L1, and L2 are considered age indeterminate. She received morphine with some improvement her pain however she is still unable to ambulate and she is being admitted in this setting. Pt is seen and examined. Neurosurgery is consulted and waiting to be seen. Pt is comfortable. started bowel regimen, no BM yet, but passing gas. Denies bloating, n/v. Review of Systems Review of Systems: 12 systems were reviewed and are negative except for as per HPI. Exam Narrative: General: Thin, frail elderly female sitting up in bed. She severe pain with movement. Weight: 39 kg. BMI: 14.8. HEENT: PERRL, EOMI. Sclera anicteric. Oral mucosa moist. Neck: Supple. Respiratory: Lungs are clear to auscultation bilaterally. Cardiovascular: Regular rate and rhythm with S1-S2. Gastrointestinal: Abdomen is soft, nontender, and nondistended with positive bowel sounds. Skin: Warm and dry. No rash or lesions on limited exam. Extremities: No cyanosis, clubbing, or edema. Radial and pedal pulses intact. Spine: No significant midline vertebral tenderness. Neurological: Alert. Cranial nerves 2-12 are grossly intact. No gross focal deficits to casual conversation. Psychiatric: Pleasant and cooperative with normal mood and affect. Judgment and insight intact. Objective Data Vital Signs Vital Signs: Vital Signs - 24 hr 10/18/24 19:23 10/18/24 19:44 10/18/24 19:46 Temperature 97.1 F L 98.2 F Pulse Rate 96 90 Respiratory Rate 15 16 Blood Pressure 119/72 110/70 Pulse Oximetry 96 98 Oxygen Delivery Room Air 10/18/24 20:30 10/18/24 20:46 10/18/24 21:00 Temperature Pulse Rate 86 Respiratory Rate 20 18 Blood Pressure 107/71 127/82 Pulse Oximetry 98 97 96 Oxygen Delivery 10/18/24 21:25 10/18/24 21:30 10/19/24 03:26 Temperature 97.4 F L Pulse Rate 81 64 Respiratory Rate 16 16 Blood Pressure 121/69 127/69 Pulse Oximetry 98 97 97 Oxygen Delivery 10/19/24 04:59 10/19/24 06:00 10/19/24 10:16 Temperature 98.1 F Pulse Rate 65 Respiratory Rate 12 Blood Pressure 111/59 L Pulse Oximetry 95 Oxygen Delivery Room Air Room Air 10/19/24 10:25 Temperature Pulse Rate Respiratory Rate Blood Pressure Pulse Oximetry Oxygen Delivery Room Air Intake/Output Intake/Output: Intake & Output 10/16/24 10/17/24 10/18/24 10/19/24 23:59 23:59 23:59 23:59 Intake Total 340 Balance 340 Meds/Results Medications: Active Medications Generic Name Dose Route Start Last Admin Trade Name Freq PRN Reason Stop Dose Admin Acetaminophen 650 mg 10/19/24 02:59 Acetaminophen 325 Mg Tablet PO Q6H PRN Mild Pain (1-3) or Fever Hydrocodone Bitart/Acetaminophen 1 tab 10/19/24 02:57 10/19/24 10:04 Hydrocodone/Acetaminophen (*Crx) 5-325 Mg Tablet PO 1 tab Q6H PRN Administration Pain Rated 4-6 Artificial Tears 1 drop 10/19/24 04:33 10/19/24 08:55 Artificial Tears Ophth Soln 15 Ml Bottle EACH EYE 1 drop DAILY PRN Administration Dry Eye(s) Aspirin 81 mg 10/19/24 21:00 Aspirin 81 Mg Enteric Tablet PO HS [facility] Atorvastatin Calcium 10 mg 10/19/24 18:00 Atorvastatin 10 Mg Tablet PO QPM [facility] Calcium Carbonate 500 mg 10/19/24 21:00 Calcium/Vitamin D 500 Mg/5 Mcg (200 I.U.) Tablet PO HS [facility] Cyclobenzaprine HCl 5 mg 10/19/24 02:56 10/19/24 03:22 Cyclobenzaprine Hcl 5 Mg Tablet PO 5 mg Q8H PRN Administration Muscle Spasm Docusate Sodium 100 mg 10/19/24 09:00 10/19/24 08:50 Docusate Sodium 100 Mg Capsule PO 100 mg Q12HR JENNIFER Administration Enoxaparin Sodium 40 mg 10/19/24 09:00 10/19/24 08:57 Enoxaparin 40 Mg/0.4 Ml Syringe SUB-Q 40 mg DAILY [facility] Administration Ferrous Sulfate 325 mg 10/19/24 21:00 Ferrous Sulfate [address] BY MOUTH [facility] Folic Acid 1 mg 10/19/24 21:00 Folic Acid 1 Mg Tablet PO [facility] Hydroxyzine HCl 10 mg 10/19/24 21:00 Hydroxyzine Hcl 10 Mg Tablet PO [facility] Levothyroxine Sodium 112 mcg 10/19/24 06:30 10/19/24 05:19 Levothyroxine Sodium 112 Mcg Tablet PO 112 mcg DAILY@0630 [facility] Administration Morphine Sulfate 2 mg 10/19/24 02:59 Morphine Sulfate (*Crx) 2 Mg/Ml Inj IV PUSH Q4H PRN Pain Rated 7-10 Ondansetron HCl 4 mg 10/19/24 01:15 Ondansetron Inj 4 Mg/2 Ml Vial IV PUSH Q4H PRN Nausea Pantoprazole Sodium 40 mg 10/19/24 09:00 10/19/24 08:50 Pantoprazole 40 Mg Tablet PO 40 mg BID JENNIFER Administration Polyethylene Glycol 17 gm 10/19/24 09:00 10/19/24 08:40 Polyethylene Glycol 3350 17 Gm Powd.Pack PO 17 gm QAM JENNIFER Administration Vitamin B Complex 1 cap 10/19/24 21:00 Vitamin B Complex Capsule PO [facility] Radiology Results: ITS Impressions Abdomen/Pelvis CT 10/19/24 07:41 IMPRESSION: 1. No evidence of appendicitis, diverticulitis or intestinal obstruction. 2. Constipation. 3. Slightly thickened wall of the bladder. Evaluation for cystitis advised. CT abdomen pelvis wo con Ordering provider: Rolf Merchant MD History: 74 years Female with . flank pain . Comparison: None. Technique: CT lumbar spine without contrast. Automated exposure control and iterative reconstruction technique were employed. The dose-length product was 166.34 mGy-cm. FINDINGS: [place]: Multilevel compression fractures with variable degrees of loss of height are noted involving T11, T12, L1, L2 and L4 which may be acute or chronic. MRI evaluation is advised. DISC SPACES: Well maintained. Facet joint disease seen at the level of L5-S1 bilaterally. T12-L1: No stenosis. L1-L2: No stenosis. L2-L3: No stenosis. L3-L4: No stenosis. Mild diffuse disc bulge. L4-L5: No stenosis. Mild diffuse disc bulge. L5-S1: No stenosis. PARASPINOUS SOFT TISSUES: Mild atheromatous disease of the abdominal aorta. IMPRESSION: Multilevel compression fractures which may be acute or chronic. MRI evaluation is advised. Labs Labs: Laboratory Results - last 24 hr 10/18/24 21:35 WBC 8.3 RBC 3.90 L Hgb 12.3 Hct 37.7 MCV 96.7 MCH 31.5 MCHC 32.6 RDW 14.4 Plt Count 406 H MPV 9.8 Immature Gran % (Auto) 0.4 Neut % (Auto) 67.8 Lymph % (Auto) 24.5 [place] % (Auto) 6.4 Eos % (Auto) 0.4 Baso % (Auto) 0.5 Lymph # (Auto) 2.04 [place] # (Auto) 0.5 Eos # (Auto) 0.0 Baso # (Auto) 0.0 Abs Immat Gran (auto) 0.03 Absolute Neuts (auto) 5.7 Absolute Nucleated RBC 0.000 Nucleated RBC % 0.0 Sodium 134 L Potassium 3.9 Chloride 100 Carbon Dioxide 26 Anion Gap 8 BUN 14 Creatinine 0.66 L Estim Creat Clear Calc 41 Estimated GFR > 60 Glucose 99 Calcium 8.7 Total Bilirubin 0.3 AST 38 H ALT 35 Alkaline Phosphatase 98 Total Protein 7.0 Albumin 3.8 Urine Color Yellow Urine Appearance Clear Urine pH 5.5 Ur Specific [place] 1.017 Urine Protein Negative Urine Glucose (UA) Negative Urine Ketones Negative Ur Blood (Man) Negative Urine Nitrate Negative Urine Bilirubin Negative Urine Urobilinogen 0.2 Leukocyte Esterase Rfl Negative Quality VTE Prophylaxis VTE prophylaxis: pharmacologic ordered
[2024-10-19 14:00] VITALS: BP 109/72; PULSE 67; RESP 18; TEMP 36.4; O2SAT 96
[2024-10-19] MEDS: ATORVASTATIN 10 MG TABLET PO (17:00)
[2024-10-19] MEDS: FOLIC ACID 1 MG TABLET PO (20:07)
[2024-10-19] MEDS: hydrOXYzine HCL 10 MG TABLET PO (20:07)
[2024-10-19] MEDS: FERROUS SULFATE 325 MG TABLET DR BY MOUTH (20:07)
[2024-10-19] MEDS: VITAMIN B COMPLEX CAPSULE 1 CAP PO (20:07)
[2024-10-19] MEDS: ASPIRIN 81 MG ENTERIC TABLET PO (20:07)
[2024-10-19] MEDS: CALCIUM/VITAMIN D 500 MG/5 MCG (200 I.U.) TABLET PO (20:07)
[2024-10-19 21:49] VITALS: BP 125/77; PULSE 70; RESP 16; TEMP 36.9; O2SAT 96
[2024-10-19] MEDS: CALCIUM CARBONATE (TUMS) 500 MG (200 MG ELEMENTAL) 400 MG PO (23:23)
[2024-10-20] MEDS: LEVOTHYROXINE SODIUM 112 MCG TABLET PO (05:18)
[2024-10-20] MEDS: HYDROcodone/acetaminophen (*CRX) 5-325 MG TABLET 1 TAB PO ×3 (05:18→20:13)
[2024-10-20 06:00] VITALS: BP 126/73; PULSE 83; RESP 17; TEMP 36.7; O2SAT 95
--- NOTE | 2024-10-20 06:57 | P.PNIM_ITS ---
Progress Note: A&P Assessment and Plan (1) Lumbar compression fracture: Qualifiers: Encounter type: initial encounter Lumbar vertebra fracture level: L4 Qualified Code(s): S32.040A - Wedge compression fracture of fourth lumbar vertebra, initial encounter for closed fracture Code(s): S32.000A - Wedge compression fracture of unspecified lumbar vertebra, initial encounter for closed fracture Status: Acute Assessment and Plan: Lumbar CT 08/18/24 showed L2 and L4 compression fractures which were most likely acute. Lumbar XR on 09/02 and 10/14 showed chronic T11 compression and highly suggesetive acute compression fracture of L2 and L4. 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 Last seen 10/15. Continue nonoperative care with TLSO brace when out of bed. Avoid bending, twisting, and lifting more than 5-10 lb Fracture likely 2/2 severe osteoporosis, encouraged PCP follow up for medications Continue TLSO brace and movement restrictions as per neurosurgery Continue tylenol for pain, norco for break through Started on flexeril PRN Admitted in this setting for pain control and neurosurgery re-evaluation MRI lumbar spine without contrast to establish acuity of fractures Plan for outpatient kyphoplasty/vertebroplasty no bending, twisting or lifting more than 5-10 lbs (2) Thoracic compression fracture: Code(s): S22.000A - Wedge compression fracture of unspecified thoracic vertebra, initial encounter for closed fracture Status: Acute Assessment and Plan: See above. (3) Osteoporosis: Code(s): M81.0 - Age-related osteoporosis without current pathological fracture Status: Acute Assessment and Plan: See above. (4) Intractable back pain: Code(s): M54.9 - Dorsalgia, unspecified Status: Acute Assessment and Plan: See above. (5) Hypothyroidism: Code(s): E03.9 - Hypothyroidism, unspecified Status: Acute Assessment and Plan: Chronic, continue home medications - synthroid 112 mcg daily (6) Gastroesophageal reflux disease: Code(s): K21.9 - Gastro-esophageal reflux disease without esophagitis Status: Acute Assessment and Plan: Chronic, continue home medication - omeprazole 40 mg daily Time Spent With Patient Time with patient: 25 - 35 minutes Subjective Date/time seen: 10/20/24 06:57 Interval history: 74-year-old female with PMH/of lumbar compression fractures, osteoporosis, gastroesophageal reflux disease, and hyperlipidemia presents to the hospital with complaint of back pain. Patient is pleasant sitting up in bed with daughter at bedside. She states that pain is better controlled at this time and she was able to ambulate throughout room with therapy. She continues to have intermittent pain to her lower back between her hips and left rib pain with new knot over her left side. She denies tingling/numbness and shooting pains to the lower extremities. She has no other complaints denying chest pain, shortness of breath, palpitations, nausea/vomiting and abdominal pain. Review of Systems Review of Systems: All systems reviewed & are unremarkable except as noted in HPI and below Exam Narrative: AF HR 83 RR 17 SpO2 95 BP 126/73 General: female in no acute respiratory distress who is nontoxic appearing, sitting up in chair HEENT: Normocephalic. Atraumatic. Extraocular movement intact. Sclera clear and anicteric. No facial asymmetry. Chest: Lungs are clear to auscultation bilaterally. No wheezes or crackles. CV: Heart was regular rate and rhythm. S1-S2. No murmurs, gallops, or rubs. Abd: Abdomen was soft. Nontender. Nondistended. Positive bowel sounds. Ext: No clubbing, cyanosis, or edema. DP pulses bilaterally. Neuro: Patient is alert and oriented x4. Strength is 5/5 in both upper and lower extremities. Speech is clear. Skin: Soft tissue mass to the left side with slight tenderness to palpation. Nonmobile. Objective Data Vital Signs Vital Signs: Vital Signs - 24 hr 10/19/24 10:16 10/19/24 10:25 10/19/24 14:00 Temperature 97.6 F Pulse Rate 67 Respiratory Rate 18 Blood Pressure 109/72 Pulse Oximetry 96 Oxygen Delivery Room Air Room Air 10/19/24 20:00 10/19/24 21:49 10/20/24 06:00 Temperature 98.5 F 98.1 F Pulse Rate 70 83 Respiratory Rate 16 17 Blood Pressure 125/77 126/73 Pulse Oximetry 96 95 Oxygen Delivery Room Air Intake/Output Intake/Output: Intake & Output 10/17/24 10/18/24 10/19/24 10/20/24 23:59 23:59 23:59 23:59 Intake Total 820 Balance 820 Meds/Results Medications: Active Medications Generic Name Dose Route Start Last Admin Trade Name Freq PRN Reason Stop Dose Admin Acetaminophen 650 mg 10/19/24 02:59 Acetaminophen 325 Mg Tablet PO Q6H PRN Mild Pain (1-3) or Fever Hydrocodone Bitart/Acetaminophen 1 tab 10/19/24 02:57 10/20/24 05:18 Hydrocodone/Acetaminophen (*Crx) 5-325 Mg Tablet PO 1 tab Q6H PRN Administration Pain Rated 4-6 Artificial Tears 1 drop 10/19/24 04:33 10/19/24 08:55 Artificial Tears Ophth Soln 15 Ml Bottle EACH EYE 1 drop DAILY PRN Administration Dry Eye(s) Aspirin 81 mg 10/19/24 21:00 10/19/24 20:07 Aspirin 81 Mg Enteric Tablet PO 81 mg HS JENNIFER Administration Atorvastatin Calcium 10 mg 10/19/24 18:00 10/19/24 17:00 Atorvastatin 10 Mg Tablet PO 10 mg QPM JENNIFER Administration Calcium Carbonate 500 mg 10/19/24 21:00 10/19/24 20:07 Calcium/Vitamin D 500 Mg/5 Mcg (200 I.U.) Tablet PO 500 mg HS JENNIFER Administration Cyclobenzaprine HCl 5 mg 10/19/24 02:56 10/19/24 23:23 Cyclobenzaprine Hcl 5 Mg Tablet PO 5 mg Q8H PRN Administration Muscle Spasm Docusate Sodium 100 mg 10/19/24 09:00 10/19/24 20:07 Docusate Sodium 100 Mg Capsule PO 100 mg Q12HR JENNIFER Administration Enoxaparin Sodium 40 mg 10/19/24 09:00 10/19/24 08:57 Enoxaparin 40 Mg/0.4 Ml Syringe SUB-Q 40 mg DAILY JENNIFER Administration Ferrous Sulfate 325 mg 10/19/24 21:00 10/19/24 20:07 Ferrous Sulfate [address] BY MOUTH 325 mg HS JENNIFER Administration Folic Acid 1 mg 10/19/24 21:00 10/19/24 20:07 Folic Acid 1 Mg Tablet PO 1 mg HS JENNIFER Administration Hydroxyzine HCl 10 mg 10/19/24 21:00 10/19/24 20:07 Hydroxyzine Hcl 10 Mg Tablet PO 10 mg HS JENNIFER Administration Levothyroxine Sodium 112 mcg 10/19/24 06:30 10/20/24 05:18 Levothyroxine Sodium 112 Mcg Tablet PO 112 mcg DAILY@0630 JENNIFER Administration Morphine Sulfate 2 mg 10/19/24 02:59 Morphine Sulfate (*Crx) 2 Mg/Ml Inj IV PUSH Q4H PRN Pain Rated 7-10 Ondansetron HCl 4 mg 10/19/24 01:15 Ondansetron Inj 4 Mg/2 Ml Vial IV PUSH Q4H PRN Nausea Pantoprazole Sodium 40 mg 10/19/24 09:00 10/19/24 16:59 Pantoprazole 40 Mg Tablet PO 40 mg BID JENNIFER Administration Polyethylene Glycol 17 gm 10/19/24 09:00 10/19/24 08:40 Polyethylene Glycol 3350 17 Gm Powd.Pack PO 17 gm QAM JENNIFER Administration Vitamin B Complex 1 cap 10/19/24 21:00 10/19/24 20:07 Vitamin B Complex Capsule PO 1 cap HS JENNIFER Administration Radiology Results: ITS Impressions Abdomen/Pelvis CT 10/19/24 07:41 IMPRESSION: 1. No evidence of appendicitis, diverticulitis or intestinal obstruction. 2. Constipation. 3. Slightly thickened wall of the bladder. Evaluation for cystitis advised. CT abdomen pelvis wo con Ordering provider: Rolf Merchant MD History: 74 years Female with . flank pain . Comparison: None. Technique: CT lumbar spine without contrast. Automated exposure control and iterative reconstruction technique were employed. The dose-length product was 166.34 mGy-cm. FINDINGS: VERTEBRAE: Multilevel compression fractures with variable degrees of loss of height are noted involving T11, T12, L1, L2 and L4 which may be acute or chronic. MRI evaluation is advised. DISC SPACES: Well maintained. Facet joint disease seen at the level of L5-S1 bilaterally. T12-L1: No stenosis. L1-L2: No stenosis. L2-L3: No stenosis. L3-L4: No stenosis. Mild diffuse disc bulge. L4-L5: No stenosis. Mild diffuse disc bulge. L5-S1: No stenosis. PARASPINOUS SOFT TISSUES: Mild atheromatous disease of the abdominal aorta. IMPRESSION: Multilevel compression fractures which may be acute or chronic. MRI evaluation is advised. Quality VTE Prophylaxis VTE prophylaxis: pharmacologic ordered
[2024-10-20 07:51] LABS: Hematocrit 40.3 % (37.0-47.0); Mean Corpuscular HGB Conc 32.3 g/dl (32-36); Mean Corpuscular Hemoglobin 31.1 pg (26-34); Mean Corpuscular Volume 96.4 fl (80-100); Mean Platelet Volume 9.4 fl (7.4-10.4); Platelet Count Result 396 k/mm3 (150-375); Red Blood Count 4.18 M/mm3 (4.2-5.4); Red Cell Distribution Width 14.4 % (11.5-14.5); White Blood Count 7.5 K/mm3 (4.5-10.0)
[2024-10-20] MEDS: CYCLOBENZAPRINE HCL 5 MG TABLET PO ×3 (07:51→23:22)
[2024-10-20] MEDS: PANTOPRAZOLE 40 MG TABLET PO ×2 (07:59→17:15)
[2024-10-20] MEDS: DOCUSATE SODIUM 100 MG CAPSULE PO ×2 (07:59→20:13)
[2024-10-20] MEDS: polyethylene glycoL 3350 17 GM POWD.PACK PO (07:59)
[2024-10-20 08:03] LABS: Anion Gap 8 mmol/L (4-12); Blood Urea Nitrogen 17 mg/dL (7-17); Calcium 9.1 mg/dL (8.4-10.2); Carbon Dioxide 28 mmol/L (22-30); Chloride 100 mmol/L (98-107); Estimated CRCL calculation 38 ml/min; Estimated Glomerular Filt Rate > 60; Glucose 101 mg/dL (65-110); Potassium 4.2 mmol/L (3.4-5.0); Sodium 136 mmol/L (137-145)
--- NOTE | 2024-10-20 12:21 | P.CONNS_ITS ---
Assessment and Plan Assessment and plan (1) Lumbar compression fracture: Qualifiers: Encounter type: initial encounter Lumbar vertebra fracture level: L4 Q ualified Code(s): S32.040A - Wedge compression fracture of fourth lumbar vertebra, initial encounter for closed fracture Code(s): S32.000A - Wedge compression fracture of unspecified lumbar vertebra, initial encounter for closed fracture Status: Acute Assessment and Plan: Assessment: Rhea is a very pleasant 74-year-old with an acute worsening of low back pain secondary to multiple acute/subacute lumbar vertebral body fractures which have been treated non operatively in an LSO and appear grossly unchanged since her most recent x-rays on October 14, 2024. Plan: - MRI lumbar spine without contrast to establish acuity of fractures - Plan for outpatient kyphoplasty /vertebroplasty - continue LSO at all times when out of bed - no bending, twisting, or lifting more than 5-10 lb - follow-up with me outpatient in 2 weeks - okay for discharge once MRI is obtained - may require narcotic pain medication at discharge Consult date: 10/20/24 Time Seen: 12:15 HPI: Rhea Reese is a 74 year old female who presented to the emergency room yesterday for increased low back and left flank pain. The patient is well known to me for current treatment of L2 and L4 vertebral body compression fractures that have been treated non operatively with an LSO who was last seen on October 15 2024 at which time she was 75% better than what she was initially. She states that after seeing me on Sunday, she went to the grocery store by herself on night and subsequently developed increasing low back and left flank pain. She tried resting on Sunday and Sunday but her symptoms persisted she presented to the emergency room yesterday. Currently, the patient is resting comfortably in the chair. Her daughter is at the bedside. The pain is currently in a band across her low back and travels up into her left sided rib area. She has noticed a new knot over her left flank. She denies any new falls or any other triggering events. She denies any lower extremity pain, numbness, weakness, or loss of bowel or bladder control. She does endorse constipation secondary to the pain medicine. FOR[facility], [facility] Past Medical History Medical History (Updated 10/19/24 @ 02:53 by Jami Hansen PA-C) Hypothyroidism Gastroesophageal reflux disease Osteoporosis Anemia Family History Family History (Updated 10/19/24 @ 03:36 by Pedro Luis Watkins RN) Mother CABG (coronary artery bypass graft) planned Cervical cancer Hypertension Sibling Hypertension H/O heart artery stent Cerebrovascular accident Social History Social History (Updated 10/19/24 @ 02:47 by Jami Hansen PA-C) Social History: Surrogate medical decision maker: Yessi Martinez, daughter. Code status: Full code. Smoking status: Former smoker Tobacco type: cigarettes Smoking end date: 10/26/21 Alcohol intake: never Alcohol use details: Rare beer on occasion. Substance use: never Substance use type: does not use Do You Feel Safe in your Home?: Yes Lack of Transportation: No Lack of Food: Never True Current Housing: I Have Housing Concerned About Future Housing: No Difficulty Paying Gas/Electric Bills: No Difficulty Paying for Meds: No Currently Unemployed: No Education: High School Diploma/GED Difficulty w/ Childcare or Family Care: No Spiritual care concerns: No Meds Home Medications and Allergies Home Medications Medication Instructions Recorded Confirmed Type acetaminophen 500 mg tablet 500 mg PO Q6H PRN pain 09/03/24 10/19/24 History (Tylenol Extra Strength) omeprazole 40 mg capsule,delayed 40 mg PO DAILY 09/03/24 10/19/24 History release artificial tears solution eye drops 1 drp ophthalmic (eye) DAILY PRN 10/19/24 10/19/24 History dry eye(s) aspirin 81 mg tablet,delayed 81 mg PO HS 10/19/24 10/19/24 History release (Adult Aspirin Regimen) atorvastatin 10 mg tablet 10 mg PO QPM 10/19/24 10/19/24 History calcium 600 mg (as 1 cap PO HS 10/19/24 10/19/24 History carbonate)-vitamin D3 25 mcg (1,000 unit) capsule ferrous sulfate 325 mg (65 mg 325 mg PO HS 10/19/24 10/19/24 History iron) tablet (FeroSul) folic acid-vitamin B6-vitamin B12 1 tablet PO HS 10/19/24 10/19/24 History 2.3 mg-24.5 mg-2 mg tablet hydrocodone 5 mg-acetaminophen 325 1 tablet PO Q6H PRN pain 3 days 10/19/24 Rx mg tablet #12 tabs hydroxyzine HCl 10 mg tablet 10 mg PO HS 10/19/24 10/19/24 History levothyroxine 112 mcg tablet 112 mcg PO DAILY 10/19/24 10/19/24 History (Synthroid) Allergies Allergy/AdvReac Type Severity Reaction Status Date / Time No Known Allergies Allergy Verified 10/19/24 03:08 Vital Signs Vital Signs - 24 hr 10/19/24 14:00 10/19/24 20:00 10/19/24 21:49 Temperature 97.6 F 98.5 F Pulse Rate 67 70 Respiratory Rate 18 16 Blood Pressure 109/72 125/77 Pulse Oximetry 96 96 Oxygen Delivery Room Air 10/20/24 06:00 Temperature 98.1 F Pulse Rate 83 Respiratory Rate 17 Blood Pressure 126/73 Pulse Oximetry 95 Oxygen Delivery Exam 2 Narrative: The patient is resting comfortably in her chair. A&O x4. No acute distress. She has full bilateral lower extremity strength, 5/5. Sensation to light touch is intact throughout the lower extremities. She is tender to palpation in the lumbar spine around L2 and L4, along with the bilateral, left greater than right, paraspinal musculature. She does have an approximately 1-1/2 inch diameter soft tissue mass in the paraspinal musculature to the left of L1-L2. It is not tender to light touch, but is tender with deep palpation. It is attached to the tissue around it. If feels consistent with a muscle knot. DTRs 2+. No ankle clonus. Results Labs 10/20/24 07:45 10/20/24 07:45 Labs: Short CBC 10/20/24 Range/Units 07:45 WBC 7.5 (4.5-10.0) K/mm3 Hgb 13.0 (12.0-15.0) g/dL Hct 40.3 (37.0-47.0) % Plt Count 396 H (150-375) k/mm3 BMP 10/20/24 07:45 Sodium 136 L Potassium 4.2 Chloride 100 Carbon Dioxide 28 BUN 17 Creatinine 0.73 Glucose 101 Calcium 9.1 Imaging My impression: I reviewed CT CAP performed yesterday. This demonstrates largely unchanged L2 and L4 burst fractures when compared back to the lumbar spine CT obtained in August 2024. There is also an acute T11 compression fracture which is unchanged. There is a compression fracture of L1, which was not present on the August [address]24 CT scan but which is unchanged from her most recent set of x-rays on October 14.
[2024-10-20 14:00] VITALS: BP 108/73; PULSE 83; RESP 18; TEMP 36.1; O2SAT 100
[2024-10-20] MEDS: ATORVASTATIN 10 MG TABLET PO (17:15)
[2024-10-20] MEDS: ASPIRIN 81 MG ENTERIC TABLET PO (20:12)
[2024-10-20] MEDS: VITAMIN B COMPLEX CAPSULE 1 CAP PO (20:12)
[2024-10-20] MEDS: FOLIC ACID 1 MG TABLET PO (20:12)
[2024-10-20] MEDS: hydrOXYzine HCL 10 MG TABLET PO (20:13)
[2024-10-20] MEDS: FERROUS SULFATE 325 MG TABLET DR BY MOUTH (20:13)
[2024-10-20] MEDS: CALCIUM/VITAMIN D 500 MG/5 MCG (200 I.U.) TABLET PO (20:13)
[2024-10-20 21:58] VITALS: BP 127/74; PULSE 73; RESP 18; TEMP 36.1; O2SAT 96
[2024-10-21 05:14] VITALS: BP 118/76; PULSE 77; RESP 16; TEMP 36.4; O2SAT 97
[2024-10-21] MEDS: LEVOTHYROXINE SODIUM 112 MCG TABLET PO (05:43)
[2024-10-21] MEDS: HYDROcodone/acetaminophen (*CRX) 5-325 MG TABLET 1 TAB PO ×2 (05:43→20:47)
[2024-10-21] MEDS: CYCLOBENZAPRINE HCL 5 MG TABLET PO ×2 (06:56→14:26)
[2024-10-21] MEDS: PANTOPRAZOLE 40 MG TABLET PO ×2 (07:59→17:10)
[2024-10-21] MEDS: DOCUSATE SODIUM 100 MG CAPSULE PO (07:59)
[2024-10-21] MEDS: polyethylene glycoL 3350 17 GM POWD.PACK PO (07:59)
[2024-10-21] MEDS: LORazepam (*CRX) 0.5 MG TABLET PO (09:07)
--- NOTE | 2024-10-21 13:22 | P.PNIM_ITS ---
Progress Note: A&P Assessment and Plan (1) Fecal impaction: Code(s): K56.41 - Fecal impaction Status: Acute Assessment and Plan: No BM since 10/17. Endorsing worsening abdominal pain with decreased appetite and bloating. KUB showed distended large bowel loops with constipation. Continue bowel regimen Enema x2 (2) Lumbar compression fracture: Qualifiers: Encounter type: initial encounter Lumbar vertebra fracture level: L4 Qualified Code(s): S32.040A - Wedge compression fracture of fourth lumbar vertebra, initial encounter for closed fracture Code(s): S32.000A - Wedge compression fracture of unspecified lumbar vertebra, initial encounter for closed fracture Status: Acute Assessment and Plan: Lumbar CT 08/18/24 showed L2 and L4 compression fractures which were most likely acute. Lumbar XR on 09/02 and 10/14 showed chronic T11 compression and highly suggesetive acute compression fracture of L2 and L4. Patient evaluated at neurosurgery office, following Leslie Gorman APRN. Last seen 10/15. Continue nonoperative care with TLSO brace when out of bed. Avoid bending, twisting, and lifting more than 5-10 lb Fracture likely 2/2 severe osteoporosis, encouraged PCP follow up for medications MRI lumbar spine without contrast to establish acuity of fractures Mild lumbar spondylosis with multiple chronic, subacute and very recent and recently progressing compression and burst fractures in the lumbar and lower thoracic spine Continue TLSO brace and movement restrictions as per neurosurgery Continue Tylenol for pain, [place] for break through Started on Flexeril PRN No bending, twisting or lifting more than 5-10 lbs Admitted in this setting for pain control and neurosurgery re-evaluation Plan for outpatient kyphoplasty/vertebroplasty (3) Thoracic compression fracture: Code(s): S22.000A - Wedge compression fracture of unspecified thoracic vertebra, initial encounter for closed fracture Status: Acute Assessment and Plan: See above. (4) Osteoporosis: Code(s): M81.0 - Age-related osteoporosis without current pathological fracture Status: Acute Assessment and Plan: See above. (5) Intractable back pain: Code(s): M54.9 - Dorsalgia, unspecified Status: Acute Assessment and Plan: See above. (6) Hypothyroidism: Code(s): E03.9 - Hypothyroidism, unspecified Status: Acute Assessment and Plan: Chronic, continue home medications - synthroid 112 mcg daily (7) Gastroesophageal reflux disease: Code(s): K21.9 - Gastro-esophageal reflux disease without esophagitis Status: Acute Assessment and Plan: Chronic, continue home medication - omeprazole 40 mg daily Time Spent With Patient Time with patient: 25 - 35 minutes Subjective Date/time seen: 10/21/24 13:22 Interval history: 74-year-old female with PMH/of lumbar compression fractures, osteoporosis, gastroesophageal reflux disease, and hyperlipidemia presents to the hospital with complaint of back pain. Patient is pleasant sitting up in chair. She states that her back pain has significantly improved as well controlled on current regimen. She denies any tingling/numbness/weakness, saddle anesthesia, or loss of bowel/bladder. She is endorsing significant abdominal pain throughout the abdomen. She states that she has not had a bowel movement since 10/17 as passing minimal gas. She notes abdominal bloating and decreased appetite but denies any nausea/vomiting. Review of Systems Review of Systems: All systems reviewed & are unremarkable except as noted in HPI and below Exam Narrative: AF HR 77 RR 16 SpO2 97 BP 118/76 General: female in no acute respiratory distress who is nontoxic appearing, sitting up in chair HEENT: Normocephalic. Atraumatic. Extraocular movement intact. Sclera clear and anicteric. No facial asymmetry. Chest: Lungs are clear to auscultation bilaterally. No wheezes or crackles. CV: Heart was regular rate and rhythm. S1-S2. No murmurs, gallops, or rubs. Abd: Abdomen was soft. Tender throughout without guarding. Nondistended. Positive bowel sounds. Ext: No clubbing, cyanosis, or edema. DP pulses bilaterally. Neuro: Patient is alert and oriented x4. Strength is 5/5 in both upper and lower extremities. Speech is clear. Skin: Soft tissue mass to the left side with slight tenderness to palpation. Nonmobile. Objective Data Vital Signs Vital Signs: Vital Signs - 24 hr 10/20/24 14:00 10/20/24 20:00 10/20/24 21:58 Temperature 97.0 F L 97 F L Pulse Rate 83 73 Respiratory Rate 18 18 Blood Pressure 108/73 127/74 Pulse Oximetry 100 96 Oxygen Delivery Room Air 10/21/24 05:14 Temperature 97.6 F Pulse Rate 77 Respiratory Rate 16 Blood Pressure 118/76 Pulse Oximetry 97 Oxygen Delivery Intake/Output Intake/Output: Intake & Output 10/18/24 10/19/24 10/20/24 10/21/24 23:59 23:59 23:59 23:59 Intake Total 820 720 200 Balance 820 720 200 Meds/Results Medications: Active Medications Generic Name Dose Route Start Last Admin Trade Name Freq PRN Reason Stop Dose Admin Acetaminophen 650 mg 10/19/24 02:59 Acetaminophen 325 Mg Tablet PO Q6H PRN Mild Pain (1-3) or Fever Hydrocodone Bitart/Acetaminophen 1 tab 10/19/24 02:57 10/21/24 05:43 Hydrocodone/Acetaminophen (*Crx) 5-325 Mg Tablet PO 1 tab Q6H PRN Administration Pain Rated 4-6 Artificial Tears 1 drop 10/19/24 04:33 10/19/24 08:55 Artificial Tears Ophth Soln 15 Ml Bottle EACH EYE 1 drop DAILY PRN Administration Dry Eye(s) Aspirin 81 mg 10/19/24 21:00 10/20/24 20:12 Aspirin 81 Mg Enteric Tablet PO 81 mg HS JENNIFER Administration Atorvastatin Calcium 10 mg 10/19/24 18:00 10/20/24 17:15 Atorvastatin 10 Mg Tablet PO 10 mg QPM JENNIFER Administration Calcium Carbonate 500 mg 10/19/24 21:00 10/20/24 20:13 Calcium/Vitamin D 500 Mg/5 Mcg (200 I.U.) Tablet PO 500 mg HS JENNIFER Administration Cyclobenzaprine HCl 5 mg 10/19/24 02:56 10/21/24 06:56 Cyclobenzaprine Hcl 5 Mg Tablet PO 5 mg Q8H PRN Administration Muscle Spasm Enoxaparin Sodium 40 mg 10/19/24 09:00 10/21/24 07:34 Enoxaparin 40 Mg/0.4 Ml Syringe SUB-Q Not Given DAILY JENNIFER Ferrous Sulfate 325 mg 10/19/24 21:00 10/20/24 20:13 Ferrous Sulfate [address] BY MOUTH 325 mg HS JENNIFER Administration Folic Acid 1 mg 10/19/24 21:00 10/20/24 20:12 Folic Acid 1 Mg Tablet PO 1 mg HS JENNIFER Administration Hydroxyzine HCl 10 mg 10/19/24 21:00 10/20/24 20:13 Hydroxyzine Hcl 10 Mg Tablet PO 10 mg HS JENNIFER Administration Levothyroxine Sodium 112 mcg 10/19/24 06:30 10/21/24 05:43 Levothyroxine Sodium 112 Mcg Tablet PO 112 mcg DAILY@0630 JENNIFER Administration Morphine Sulfate 2 mg 10/19/24 02:59 Morphine Sulfate (*Crx) 2 Mg/Ml Inj IV PUSH Q4H PRN Pain Rated 7-10 Ondansetron HCl 4 mg 10/19/24 01:15 Ondansetron Inj 4 Mg/2 Ml Vial IV PUSH Q4H PRN Nausea Pantoprazole Sodium 40 mg 10/19/24 09:00 10/21/24 07:59 Pantoprazole 40 Mg Tablet PO 40 mg BID JENNIFER Administration Polyethylene Glycol 17 gm 10/19/24 09:00 10/21/24 07:59 Polyethylene Glycol 3350 17 Gm Powd.Pack PO 17 gm QAM JENNIFER Administration Senna/Docusate Sodium 1 tab 10/21/24 21:00 Senna/Docusate Sodium Tablet PO HS [facility] Vitamin B Complex 1 cap 10/19/24 21:00 10/20/24 20:12 Vitamin B Complex Capsule PO 1 cap HS [facility] Administration Radiology Results: ITS Impressions Abdomen/Pelvis CT 10/19/24 07:41 IMPRESSION: 1. No evidence of appendicitis, diverticulitis or intestinal obstruction. 2. Constipation. 3. Slightly thickened wall of the bladder. Evaluation for cystitis advised. CT abdomen pelvis wo con Ordering provider: Rolf Merchant MD History: 74 years Female with . flank pain . Comparison: None. Technique: CT lumbar spine without contrast. Automated exposure control and iterative reconstruction technique were employed. The dose-length product was 166.34 mGy-cm. FINDINGS: VERTEBRAE: Multilevel compression fractures with variable degrees of loss of height are noted involving T11, T12, L1, L2 and L4 which may be acute or chronic. MRI evaluation is advised. DISC SPACES: Well maintained. Facet joint disease seen at the level of L5-S1 bilaterally. T12-L1: No stenosis. L1-L2: No stenosis. L2-L3: No stenosis. L3-L4: No stenosis. Mild diffuse disc bulge. L4-L5: No stenosis. Mild diffuse disc bulge. L5-S1: No stenosis. PARASPINOUS SOFT TISSUES: Mild atheromatous disease of the abdominal aorta. IMPRESSION: Multilevel compression fractures which may be acute or chronic. MRI evaluation is advised. Lumbar Spine MRI 10/21/24 10:00 IMPRESSION: 1. Mild lumbar spondylosis with multiple chronic, subacute and very recent and recently progressing compression and burst fractures in the lumbar and lower thoracic spine as detailed above. Abdomen X-Ray 10/21/24 11:20 IMPRESSION: Distended large bowel loops. Follow-up advised. Constipation Quality VTE Prophylaxis VTE prophylaxis: pharmacologic ordered
[2024-10-21 14:00] VITALS: BP 124/80; PULSE 78; RESP 18; TEMP 36.5; O2SAT 98
[2024-10-21] MEDS: ATORVASTATIN 10 MG TABLET PO (17:09)
[2024-10-21] MEDS: SENNA/DOCUSATE SODIUM TABLET 1 TAB PO (20:48)
[2024-10-21] MEDS: VITAMIN B COMPLEX CAPSULE 1 CAP PO (20:48)
[2024-10-21] MEDS: hydrOXYzine HCL 10 MG TABLET PO (20:49)
[2024-10-21] MEDS: CALCIUM/VITAMIN D 500 MG/5 MCG (200 I.U.) TABLET PO (20:49)
[2024-10-21] MEDS: FERROUS SULFATE 325 MG TABLET DR BY MOUTH (20:49)
[2024-10-21] MEDS: ASPIRIN 81 MG ENTERIC TABLET PO (20:49)
[2024-10-21] MEDS: FOLIC ACID 1 MG TABLET PO (20:49)
[2024-10-21 21:30] VITALS: BP 119/68; PULSE 86; RESP 20; TEMP 36.8; O2SAT 96
[2024-10-22 05:00] VITALS: BP 128/75; PULSE 96; RESP 20; TEMP 36.9; O2SAT 97
[2024-10-22] MEDS: CYCLOBENZAPRINE HCL 5 MG TABLET PO ×2 (05:09→17:27)
[2024-10-22] MEDS: LEVOTHYROXINE SODIUM 112 MCG TABLET PO (06:03)
[2024-10-22] MEDS: PANTOPRAZOLE 40 MG TABLET PO ×2 (08:14→17:27)
[2024-10-22] MEDS: polyethylene glycoL 3350 17 GM POWD.PACK PO (08:14)
[2024-10-22] MEDS: ENOXAPARIN 40 MG/0.4 ML SYRINGE SUB-Q (08:14)
[2024-10-22] MEDS: HYDROcodone/acetaminophen (*CRX) 5-325 MG TABLET 1 TAB PO ×2 (08:14→20:31)
[2024-10-22] MEDS: LACTULOSE 20 GM/30 ML UDC PO ×3 (13:27→20:37)
[2024-10-22 14:00] VITALS: BP 116/77; PULSE 87; RESP 18; TEMP 36.4; O2SAT 97
--- NOTE | 2024-10-22 15:30 | PM.IMPN ---
Progress Note: A&P Assessment and Plan (1) Fecal impaction: Code(s): K56.41 - Fecal impaction Status: Acute Assessment and Plan: No BM since 10/17. Endorsing worsening abdominal pain with decreased appetite and bloating. KUB showed distended large bowel loops with constipation. Continue bowel regimen Enema x2 -added lactulose q6 h until BM (2) Lumbar compression fracture: Qualifiers: Encounter type: initial encounter Lumbar vertebra fracture level: L4 Qualified Code(s): S32.040A - Wedge compression fracture of fourth lumbar vertebra, initial encounter for closed fracture Code(s): S32.000A - Wedge compression fracture of unspecified lumbar vertebra, initial encounter for closed fracture Status: Acute Assessment and Plan: Lumbar CT 08/18/24 showed L2 and L4 compression fractures which were most likely acute. Lumbar XR on 09/02 and 10/14 showed chronic T11 compression and highly suggesetive acute compression fracture of L2 and L4. Patient evaluated at neurosurgery office, following Leslie Gorman APRN. Last seen 10/15. Continue nonoperative care with TLSO brace when out of bed. Avoid bending, twisting, and lifting more than 5-10 lb Fracture likely 2/2 severe osteoporosis, encouraged PCP follow up for medications MRI lumbar spine without contrast to establish acuity of fractures Mild lumbar spondylosis with multiple chronic, subacute and very recent and recently progressing compression and burst fractures in the lumbar and lower thoracic spine Continue TLSO brace and movement restrictions as per neurosurgery Continue Tylenol for pain, [place] for break through Started on Flexeril PRN No bending, twisting or lifting more than 5-10 lbs Admitted in this setting for pain control and neurosurgery re-evaluation Plan for outpatient kyphoplasty/vertebroplasty (3) Thoracic compression fracture: Code(s): S22.000A - Wedge compression fracture of unspecified thoracic vertebra, initial encounter for closed fracture Status: Acute Assessment and Plan: See above. (4) Osteoporosis: Code(s): M81.0 - Age-related osteoporosis without current pathological fracture Status: Acute Assessment and Plan: See above. (5) Intractable back pain: Code(s): M54.9 - Dorsalgia, unspecified Status: Acute Assessment and Plan: See above. (6) Hypothyroidism: Code(s): E03.9 - Hypothyroidism, unspecified Status: Acute Assessment and Plan: Chronic, continue home medications - synthroid 112 mcg daily (7) Gastroesophageal reflux disease: Code(s): K21.9 - Gastro-esophageal reflux disease without esophagitis Status: Acute Assessment and Plan: Chronic, continue home medication - omeprazole 40 mg daily Time Spent With Patient Time with patient: 25 - 35 minutes Subjective Date/time seen: 10/22/24 15:30 Interval history: 74-year-old female with PMH/of lumbar compression fractures, osteoporosis, gastroesophageal reflux disease, and hyperlipidemia presents to the hospital with complaint of back pain. Patient is pleasant sitting up in chair. She states that her back pain has significantly improved as well controlled on current regimen. She denies any tingling/numbness/weakness, saddle anesthesia, or loss of bowel/bladder. She is endorsing significant abdominal pain throughout the abdomen. She states that she has not had a bowel movement since 10/17 as passing minimal gas. She notes abdominal bloating and decreased appetite but denies any nausea/vomiting. Pt is seen and examined. Feels somewhat bloated but reports passing gas. Will add lactulose. eating and drinking ok. Anticipate discharge once has BM. Review of Systems Review of Systems: 12 systems were reviewed and are negative except for as per HPI. All systems reviewed & are unremarkable except as noted in HPI and below Exam Narrative: General: female in no acute respiratory distress who is nontoxic appearing, sitting up in chair HEENT: Normocephalic. Atraumatic. Extraocular movement intact. Sclera clear and anicteric. No facial asymmetry. Chest: Lungs are clear to auscultation bilaterally. No wheezes or crackles. CV: Heart was regular rate and rhythm. S1-S2. No murmurs, gallops, or rubs. Abd: Abdomen was soft. Tender throughout without guarding. Nondistended. Positive bowel sounds. Ext: No clubbing, cyanosis, or edema. DP pulses bilaterally. Neuro: Patient is alert and oriented x4. Strength is 5/5 in both upper and lower extremities. Speech is clear. Skin: Soft tissue mass to the left side with slight tenderness to palpation. Nonmobile. Objective Data Vital Signs Vital Signs: Vital Signs - 24 hr 10/21/24 20:00 10/21/24 21:30 10/22/24 05:00 Temperature 98.3 F 98.4 F Pulse Rate 86 96 Respiratory Rate 20 20 Blood Pressure 119/68 128/75 Pulse Oximetry 96 97 Oxygen Delivery Room Air 10/22/24 08:00 Temperature Pulse Rate Respiratory Rate Blood Pressure Pulse Oximetry Oxygen Delivery Room Air Intake/Output Intake/Output: Intake & Output 10/19/24 10/20/24 10/21/24 10/22/24 23:59 23:59 23:59 23:59 Intake Total 348 522 8215 340 Balance 510 402 0489 340 Meds/Results Medications: Active Medications Generic Name Dose Route Start Last Admin Trade Name Freq PRN Reason Stop Dose Admin Acetaminophen 650 mg 10/19/24 02:59 Acetaminophen 325 Mg Tablet PO Q6H PRN Mild Pain (1-3) or Fever Hydrocodone Bitart/Acetaminophen 1 tab 10/19/24 02:57 10/22/24 08:14 Hydrocodone/Acetaminophen (*Crx) 5-325 Mg Tablet PO 1 tab Q6H PRN Administration Pain Rated 4-6 Artificial Tears 1 drop 10/19/24 04:33 10/19/24 08:55 Artificial Tears Ophth Soln 15 Ml Bottle EACH EYE 1 drop DAILY PRN Administration Dry Eye(s) Aspirin 81 mg 10/19/24 21:00 10/21/24 20:49 Aspirin 81 Mg Enteric Tablet PO 81 mg HS JENNIFER Administration Atorvastatin Calcium 10 mg 10/19/24 18:00 10/21/24 17:09 Atorvastatin 10 Mg Tablet PO 10 mg QPM JENNIFER Administration Calcium Carbonate 500 mg 10/19/24 21:00 10/21/24 20:49 Calcium/Vitamin D 500 Mg/5 Mcg (200 I.U.) Tablet PO 500 mg HS JENNIFER Administration Cyclobenzaprine HCl 5 mg 10/19/24 02:56 10/22/24 05:09 Cyclobenzaprine Hcl 5 Mg Tablet PO 5 mg Q8H PRN Administration Muscle Spasm Enoxaparin Sodium 40 mg 10/19/24 09:00 10/22/24 08:14 Enoxaparin 40 Mg/0.4 Ml Syringe SUB-Q 40 mg DAILY JENNIFER Administration Ferrous Sulfate 325 mg 10/19/24 21:00 10/21/24 20:49 Ferrous Sulfate [address] BY MOUTH 325 mg HS JENNIFER Administration Folic Acid 1 mg 10/19/24 21:00 10/21/24 20:49 Folic Acid 1 Mg Tablet PO 1 mg HS JENNIFER Administration Hydroxyzine HCl 10 mg 05/04/25 21:00 10/21/24 20:49 Hydroxyzine Hcl 10 Mg Tablet PO 10 mg HS JENNIFER Administration Levothyroxine Sodium 112 mcg 10/19/24 06:30 10/22/24 06:03 Levothyroxine Sodium 112 Mcg Tablet PO 112 mcg DAILY@0630 JENNIFER Administration Morphine Sulfate 2 mg 10/19/24 02:59 Morphine Sulfate (*Crx) 2 Mg/Ml Inj IV PUSH Q4H PRN Pain Rated 7-10 Ondansetron HCl 4 mg 10/19/24 01:15 Ondansetron Inj 4 Mg/2 Ml Vial IV PUSH Q4H PRN Nausea Pantoprazole Sodium 40 mg 10/19/24 09:00 10/22/24 08:14 Pantoprazole 40 Mg Tablet PO 40 mg BID JENNIFER Administration Polyethylene Glycol 17 gm 10/19/24 09:00 10/22/24 08:14 Polyethylene Glycol 3350 17 Gm Powd.Pack PO 17 gm QAM JENNIFER Administration Senna/Docusate Sodium 1 tab 10/21/24 21:00 10/21/24 20:48 Senna/Docusate Sodium Tablet PO 1 tab HS [facility] Administration Vitamin B Complex 1 cap 10/19/24 21:00 10/21/24 20:48 Vitamin B Complex Capsule PO 1 cap HS [facility] Administration Radiology Results: ITS Impressions Abdomen/Pelvis CT 10/19/24 07:41 IMPRESSION: 1. No evidence of appendicitis, diverticulitis or intestinal obstruction. 2. Constipation. 3. Slightly thickened wall of the bladder. Evaluation for cystitis advised. CT abdomen pelvis wo con Ordering provider: Rolf Merchant MD History: 74 years Female with . flank pain . Comparison: None. Technique: CT lumbar spine without contrast. Automated exposure control and iterative reconstruction technique were employed. The dose-length product was 166.34 mGy-cm. FINDINGS: VERTEBRAE: Multilevel compression fractures with variable degrees of loss of height are noted involving T11, T12, L1, L2 and L4 which may be acute or chronic. MRI evaluation is advised. DISC SPACES: Well maintained. Facet joint disease seen at the level of L5-S1 bilaterally. T12-L1: No stenosis. L1-L2: No stenosis. L2-L3: No stenosis. L3-L4: No stenosis. Mild diffuse disc bulge. L4-L5: No stenosis. Mild diffuse disc bulge. L5-S1: No stenosis. PARASPINOUS SOFT TISSUES: Mild atheromatous disease of the abdominal aorta. IMPRESSION: Multilevel compression fractures which may be acute or chronic. MRI evaluation is advised. Lumbar Spine MRI 10/21/24 10:00 IMPRESSION: 1. Mild lumbar spondylosis with multiple chronic, subacute and very recent and recently progressing compression and burst fractures in the lumbar and lower thoracic spine as detailed above. Abdomen X-Ray 10/21/24 11:20 IMPRESSION: Distended large bowel loops. Follow-up advised. Constipation Quality VTE Prophylaxis VTE prophylaxis: pharmacologic ordered
[2024-10-22] MEDS: ATORVASTATIN 10 MG TABLET PO (17:27)
[2024-10-22] MEDS: FERROUS SULFATE 325 MG TABLET DR BY MOUTH (20:31)
[2024-10-22] MEDS: VITAMIN B COMPLEX CAPSULE 1 CAP PO (20:31)
[2024-10-22] MEDS: ASPIRIN 81 MG ENTERIC TABLET PO (20:31)
[2024-10-22] MEDS: FOLIC ACID 1 MG TABLET PO (20:31)
[2024-10-22] MEDS: CALCIUM/VITAMIN D 500 MG/5 MCG (200 I.U.) TABLET PO (20:31)
[2024-10-22] MEDS: SENNA/DOCUSATE SODIUM TABLET 1 TAB PO (20:31)
[2024-10-22] MEDS: hydrOXYzine HCL 10 MG TABLET PO (20:31)
[2024-10-22 20:40] VITALS: BP 124/75; PULSE 84; RESP 16; TEMP 36.3; O2SAT 100
[2024-10-23] MEDS: LACTULOSE 20 GM/30 ML UDC PO ×2 (04:18→09:28)
[2024-10-23 05:25] VITALS: BP 106/47; PULSE 82; RESP 20; TEMP 36.1; O2SAT 94
[2024-10-23] MEDS: LEVOTHYROXINE SODIUM 112 MCG TABLET PO (05:28)
[2024-10-23] MEDS: CYCLOBENZAPRINE HCL 5 MG TABLET PO (05:28)
[2024-10-23] MEDS: polyethylene glycoL 3350 17 GM POWD.PACK PO (07:30)
[2024-10-23] MEDS: PANTOPRAZOLE 40 MG TABLET PO (07:31)
[2024-10-23] MEDS: HYDROcodone/acetaminophen (*CRX) 5-325 MG TABLET 1 TAB PO (07:31)
[2024-10-23] MEDS: ENOXAPARIN 40 MG/0.4 ML SYRINGE SUB-Q (07:31)
[2024-10-23 09:19] VITALS: O2SAT 97
[2024-10-23] MEDS: BISACODYL 10 MG SUPPOSITORY RECTAL (09:28)
--- NOTE | 2024-10-23 10:52 | PM.DS ---
DS: Admitting Diagnosis Discharge Date 10/23 Admitting Diagnosis back pain DS: Discharge Diagnosis Discharge Diagnosis (1) Fecal impaction: Code(s): K56.41 - Fecal impaction Status: Acute (2) Lumbar compression fracture: Qualifiers: Encounter type: initial encounter Lumbar vertebra fracture level: L4 Qualified Code(s): S32.040A - Wedge compression fracture of fourth lumbar vertebra, initial encounter for closed fracture Code(s): S32.000A - Wedge compression fracture of unspecified lumbar vertebra, initial encounter for closed fracture Status: Acute (3) Thoracic compression fracture: Code(s): S22.000A - Wedge compression fracture of unspecified thoracic vertebra, initial encounter for closed fracture Status: Acute (4) Osteoporosis: Code(s): M81.0 - Age-related osteoporosis without current pathological fracture Status: Acute Assessment and Plan: See above. (5) Intractable back pain: Code(s): M54.9 - Dorsalgia, unspecified Status: Acute (6) Hypothyroidism: Code(s): E03.9 - Hypothyroidism, unspecified Status: Acute (7) Gastroesophageal reflux disease: Code(s): K21.9 - Gastro-esophageal reflux disease without esophagitis Status: Acute DS: Summary Hospital Course Hospital Course: 74-year-old female with PMH/of lumbar compression fractures, osteoporosis, gastroesophageal reflux disease, and hyperlipidemia presents to the hospital with complaint of back pain. Patient is pleasant sitting up in chair. She states that her back pain has significantly improved as well controlled on current regimen. She denies any tingling/numbness/weakness, saddle anesthesia, or loss of bowel/bladder. She is endorsing significant abdominal pain throughout the abdomen. She states that she has not had a bowel movement since 10/17 as passing minimal gas. She notes abdominal bloating and decreased appetite but denies any nausea/vomiting. Pt is seen and examined. Feels somewhat bloated but reports passing gas. Will add lactulose. eating and drinking ok. Anticipate discharge once has BM. Several issues were addressed: # Fecal impaction: No BM since 10/17. Endorsing worsening abdominal pain with decreased appetite and bloating. KUB showed distended large bowel loops with constipation. Continue bowel regimen Enema x2 -added lactulose q6 h until BM Had BM today on 10/23- feels fine- cleared for discharge #Lumbar compression fracture: Lumbar CT 08/18/24 showed L2 and L4 compression fractures which were most likely acute. Lumbar XR on 09/02 and 10/14 showed chronic T11 compression and highly suggesetive acute compression fracture of L2 and L4. Patient evaluated at neurosurgery office, following Leslie Gorman APRN. Last seen 10/15. Continue nonoperative care with TLSO brace when out of bed. Avoid bending, twisting, and lifting more than 5-10 lb Fracture likely 2/2 severe osteoporosis, encouraged PCP follow up for medications MRI lumbar spine without contrast to establish acuity of fractures Mild lumbar spondylosis with multiple chronic, subacute and very recent and recently progressing compression and burst fractures in the lumbar and lower thoracic spine Continue TLSO brace and movement restrictions as per neurosurgery Continue Tylenol for pain, [place] for break through Started on Flexeril PRN No bending, twisting or lifting more than 5-10 lbs Admitted in this setting for pain control and neurosurgery re-evaluation Plan for outpatient kyphoplasty/vertebroplasty # Thoracic compression fracture: # Osteoporosis # Intractable back pain # Hypothyroidism: - synthroid 112 mcg daily Status at Discharge Functional status at discharge: independent ambulation Overall status at discharge: patient is progressing back to baseline Time Spent with Patient Time attestation: Total time spent providing and/or coordinating discharge services: Time spent: Greater than 30 minutes Exam Narrative: General: female in no acute respiratory distress who is nontoxic appearing HEENT: Normocephalic. Atraumatic. Extraocular movement intact. Sclera clear and anicteric. No facial asymmetry. Chest: Lungs are clear to auscultation bilaterally. No wheezes or crackles. CV: Heart was regular rate and rhythm. S1-S2. No murmurs, gallops, or rubs. Abd: Abdomen was soft. Tender throughout without guarding. Nondistended. Positive bowel sounds. Ext: No clubbing, cyanosis, or edema. DP pulses bilaterally. Neuro: Patient is alert and oriented x4. Strength is 5/5 in both upper and lower extremities. Speech is clear. Skin: Soft tissue mass to the left side with slight tenderness to palpation. Nonmobile. Const: General: comfortable Discharge Plan Discharge Attending physician on discharge: Parker Alvarez Consulting providers: Rochelle Klein Discharging Clinician: Farrah Pablo Patient Disposition: Home Activity: may shower Diet: regular Discharge Instructions: You were admitted for Wedge compression fracture of unspecified lumbar vertebra neurosurgery, following Leslie Gorman [employer]. Last seen 10/15. Continue nonoperative care with TLSO brace when out of bed. Avoid bending, twisting, and lifting more than 5-10 lb Fracture likely 2/2 severe osteoporosis, encouraged PCP follow up for medications MRI lumbar spine without contrast to establish acuity of fractures Mild lumbar spondylosis with multiple chronic, subacute and very recent and recently progressing compression and burst fractures in the lumbar and lower thoracic spine Continue TLSO brace and movement restrictions as per neurosurgery Continue Tylenol for pain, [place] for break through Started on Flexeril PRN No bending, twisting or lifting more than 5-10 lbs Admitted in this setting for pain control and neurosurgery re-evaluation Plan for outpatient kyphoplasty/vertebroplasty Patient Instructions: Antibiotic Form Patient Language: Hungarian Stand Alone Forms: General Discharge Information Follow-up/Referrals: Radha,Rashmi Meadows [Primary Care Provider] - Rochelle Klein MD [Physician] - 2 Weeks Discharge Medications: New hydrocodone-acetaminophen 5-325 mg tablet 1 tablet PO Q6H PRN (Reason: pain) 3 Days Qty: 12 0RF sennosides-docusate sodium [Senokot-S] 8.6-50 mg Tablet 1 tab-cap PO HS Qty: 20 0RF polyethylene glycol 3350 [Miralax] 17 gram Powder In Packet 17 g PO QAM Qty: 14 0RF Continued omeprazole 40 mg capsule,delayed release(DR/EC) 40 mg PO DAILY acetaminophen [Tylenol Extra Strength] 500 mg tablet 500 mg PO Q6H PRN (Reason: pain) levothyroxine [Synthroid] 112 mcg tablet 112 mcg PO DAILY ferrous sulfate [FeroSul] 325 mg (65 mg iron) tablet 325 mg PO HS calcium carbonate-vitamin D3 600 mg-25 mcg (1,000 unit) capsule 1 cap PO HS Patient Comments: 20 not 25 aspirin [Adult Aspirin Regimen] 81 mg tablet,delayed release (DR/EC) 81 mg PO HS atorvastatin 10 mg tablet 10 mg PO QPM hydroxyzine HCl 10 mg tablet 10 mg PO HS folic acid-vitamin B6-vit B12 2.3-24.5-2 mg tablet 1 tablet PO HS artificial tears solution Drops 1 drp ophthalmic (eye) DAILY PRN (Reason: dry eye(s)) Other Ambulatory Orders: OT Outpatient Eval and Treat (ONCE) Timeframe: 20241121 Location: Determined by Patient Ordered By: Stella Rosado PT Outpatient Eval and Treat (ONCE) Timeframe: 20241104 Location: Determined by Patient Ordered By: Stella Rosado Date of admission: 10/20/24 16:23 Primary Care Provider: RadhaAbdiel Admitting Provider: Karen Harrington Attending physician on admission: Stella Rosado Condition: Stable Quality VTE Prophylaxis VTE prophylaxis: pharmacologic ordered Hospitalist MIPS Heart Failure (Exclusion) Patient has history of Heart Transplant or Left Ventricular Assistive Device?: No IF YES, STOP HERE Heart Failure (Qualifier) Patient has current or prior documentation of LVEF less than or equal to 40%, or mod/servere depressed LVSF?: No IF NO, STOP HERE
[2024-10-23 11:12] LABS: Hematocrit 41.5 % (37.0-47.0); Hemoglobin 13.8 g/dL (12.0-15.0); Mean Corpuscular HGB Conc 33.3 g/dl (32-36); Mean Corpuscular Hemoglobin 31.6 pg (26-34); Mean Platelet Volume 9.8 fl (7.4-10.4); Platelet Count Result 446 k/mm3 (150-375); Red Blood Count 4.37 M/mm3 (4.2-5.4); Red Cell Distribution Width 13.8 % (11.5-14.5); White Blood Count 6.7 K/mm3 (4.5-10.0)
[2024-10-23 11:37] LABS: Anion Gap 12 mmol/L (4-12); Blood Urea Nitrogen 9 mg/dL (7-17); Carbon Dioxide 26 mmol/L (22-30); Chloride 95 mmol/L (98-107); Estimated CRCL calculation 37 ml/min; Estimated Glomerular Filt Rate > 60; Glucose 95 mg/dL (65-110); Sodium 133 mmol/L (137-145)
== END 2024-10-23 13:10 | disposition home or self-care (01) | DRG 552 ==
LOC: ANHED 10-19 01:17 → ANH3MEDSUR 10-19 01:55
PROVIDERS: Student in an Organized Health Care Education/Training Program; Admitting Provider Internal Medicine; Emergency Provider Emergency Medicine; PCP Internal Medicine Infectious Disease; Visit Provider Nurse Practitioner
DX: S32.010A Wedge compression fracture of first lumbar vertebra, initial encounter for closed fracture (principal); M80.88XA Other osteoporosis with current pathological fracture, vertebra(e), initial encounter for fracture; S32.040A Wedge compression fracture of fourth lumbar vertebra, initial encounter for closed fracture; S32.020A Wedge compression fracture of second lumbar vertebra, initial encounter for closed fracture; E03.9 Hypothyroidism, unspecified; K56.41 Fecal impaction; K21.9 Gastro-esophageal reflux disease without esophagitis; E78.5 Hyperlipidemia, unspecified; D64.9 Anemia, unspecified; X58.XXXA Exposure to other specified factors, initial encounter; Z87.891 Personal history of nicotine dependence
CPT/HCPCS: 36415; 72148; 74018; 74176; 80048; 80053; 81003; 85025; 85027; 97110; 97116; 97162; 97165; 99285; A9270; G0378; J1650

== ENCOUNTER 2024-12-09 10:21 | Outpatient (CLI) | payer MEDICARE, BC, SELFPAY ==
--- NOTE | ~2024-12-09 | XR_ITS ---
3 VIEWS LUMBAR SPINE Ordering provider: Leslie Gorman APRN History: . S32.040A - Wedge compression fracture of fourth lumbar ve... . Comparison: October 14, 2024 FINDINGS: VERTEBRAL BODIES:Levoscoliosis. Wedge compression fracture of T11, T12, L1, L2 and L4 unchanged from previous examination. No subluxation. DISK SPACES: Normal. SOFT TISSUES: Aortic calcification. IMPRESSION: Multilevel compression fractures unchanged from previous examination. Reviewed, dictated and finalized at location A.
== END 2024-12-09 10:22 | disposition home or self-care (01) ==
PROVIDERS: PCP Internal Medicine Infectious Disease; Visit Provider Nurse Practitioner Adult Health
DX: S32.040A Wedge compression fracture of fourth lumbar vertebra, initial encounter for closed fracture (principal); X58.XXXA Exposure to other specified factors, initial encounter
CPT/HCPCS: 72100